=== PATIENT | female | born 1955 | race Caucasian/White ===

== ENCOUNTER 2017-07-29 09:30 | Outpatient (CLI) | payer MEDICARE ==
--- NOTE | 2017-07-29 11:21 | RAD ---
CHEST 2 VIEWS: Date: 07/29/17 HISTORY: Dyspnea. COMPARISON: Chest 2 view dated 03/10/16. FINDINGS: Lungs are clear. No pneumothorax or effusion. Cardiac silhouette and mediastinal contour within norm al limits. Mild spondylosis of thoracic spine. Bones are osteopenic. Lungs mildly hyperinflated. IMPRESSION: Mild lung hyperinflation, otherwise no acute intrathoracic abnormality. No significant change. POS: [facility]
== END 2017-07-29 09:31 | disposition home or self-care (01) ==
LOC: RAD 09:30
PROVIDERS: ATTEND Internal Medicine Critical Care Medicine
DX: R06.00 Dyspnea, unspecified (principal); J98.11 Atelectasis
CPT/HCPCS: 71020

== ENCOUNTER 2018-07-05 15:57 | Outpatient (CLI) | payer MEDICARE ==
--- NOTE | 2018-07-05 16:44 | RAD ---
CHEST TWO VIEWS: HISTORY: COPD. Congestion. COMPARISON: 07/29/2017 FINDINGS: The lungs are hyperinflated. Chronic changes without consolidation or mass. No pneumothorax or osse ous abnormalities. Normal cardiac silhouette. IMPRESSION: 1. Hyperinflation. 2. Chronic obstructive pulmonary disease. 3. No acute cardiopulmonary process. POS: [facility]
== END 2018-07-05 15:58 | disposition home or self-care (01) ==
LOC: SCSRAD 15:57
PROVIDERS: ATTEND Family Medicine
DX: J44.1 Chronic obstructive pulmonary disease with (acute) exacerbation (principal); R91.8 Other nonspecific abnormal finding of lung field
CPT/HCPCS: 71046

== ENCOUNTER 2018-08-06 08:43 | Inpatient (IN) | payer MEDICARE ==
[2018-08-06] MEDS ORDERED: Fentanyl 20 mcg/ml (100 ml CADD) IV PRN (09:15)
[2018-08-06 09:23] LABS: Actual Bicarbonate (HCO3a) 31.6 mEq/L (22-28); Analyzer IN Cardio ER; Base Excess (BEa) 4.1 mEq/L (-2.0 to +3.0); Calcium, Ionized 1.11 mmol/L (1.12-1.30); Carboxyhemoglobin (COHb) 0.3 gm% (0.0-3.0); Hemoglobin (Hb) 12.2 g/dL (12.0-16.0); O2 Tension (PaO2) 90.6 mmHg (> 80.0); pH, Arterial 7.32 (7.35-7.45)
[2018-08-06] MEDS ORDERED: Dexamethasone 10 MG/ML VIAL ONE (09:24)
[2018-08-06 09:35] LABS: CO2 Tension 62.2 mmHg (35.0-45.0); Puncture Site RRA
--- NOTE | 2018-08-06 09:38 | RAD ---
SEMIUPRIGHT PORTABLE CHEST 1 VIEW: Date: 08/06/18 HISTORY: 62-year-old female with history of respiratory distress and dyspnea. FINDINGS: NG tube and endotracheal tubes have been placed in satisfactory location. Increased linear and inters titial markings are noted bilaterally, evidence for some chronic change. Minimal increased markings a re noted in the right upper lobe, but raise the concern for minimal pneumonia. Probable small left pl eural effusion. No significant cardiomegaly. Old granulomatous disease. IMPRESSION: NG tube and endotracheal tube in satisfactory location. Minimal parenchymal changes right upper lobe, evidence for pneumonia. Blunting of the left costophrenic angle, evidence for some left pleural effu olamide. Increased interstitial and linear parenchymal changes bilaterally, evidence for bilateral vascu lar congestion. No significant cardiomegaly. Atherosclerosis of the aorta. POS: [facility]
[2018-08-06] MEDS ORDERED: Magnesium 2 GM/50 ML 2 GM in Premix Bag 1 BAG IVPB SCH (10:00)
[2018-08-06 10:05] LABS: ALT (SGPT) 10 U/L (8-55); AST (SGOT) 19 U/L (5-34); Albumin 3.8 g/dL (3.4-4.8); Alkaline Phosphatase 114 U/L (40-150); Anion Gap 12 mmol/L (10-20); BUN (Urea Nitrogen) 10 mg/dL (9.8-20.1); Bilirubin, Total 0.4 mg/dL (0.2-1.2); CK (CPK) 155 U/L (29-168); Calc. Creatinine Clearance 0 mL/min (70-130); Calcium 8.8 mg/dL (7.8-10.44); Carbon Dioxide 29 mmol/L (23-31); Chloride 97 mmol/L (98-107); Estimated GFR-MDRD 61; Globulin 2.7 g/dL (2.4-3.5); Glucose 64 mg/dL (80-115); Lipase 4 U/L (8-78); Potassium 3.7 mmol/L (3.5-5.1); Protein, Total 6.5 g/dL (6.0-8.3); Sodium 134 mmol/L (136-145)
[2018-08-06 10:10] LABS: CKMB 5.1 ng/mL (0-6.6); Troponin I Less than 0.010 ng/mL (< 0.028)
[2018-08-06] MEDS ORDERED: CCU Electrolyte Replacement 1 EACH IVPB ONE (10:31)
[2018-08-06] MEDS ORDERED: Insulin Regular 300 UNITS/3 ML VIAL SC PRN (10:31)
--- NOTE | 2018-08-06 10:43 | RAD ---
FRONTAL VIEW CHEST: Date: 08/06/18 COMPARISON: Earlier same date. INDICATION: Line placement. FINDINGS: There has been placed of a left subclavian venous catheter. No significant postprocedural pneumothora x is present. Redemonstration of endotracheal tube and enteric catheter. Right medial apical opacity is similar. There is interstitial prominence and enlargement of the pulmonary vasculature. IMPRESSION: 1. Interval placement of left subclavian venous catheter, without evidence of postprocedural pneumot horax. 2. Persistent medial right apical opacity, which is superimposed upon findings of edema. Follow-up t o resolution is recommended. CODE T. POS: [facility]
[2018-08-06 10:45] LABS: Band 11 % (5-11); Lymphocytes 22 % (21-51); MDiff Complete? YES; Mean Corpuscular HGB CONC 32.2 g/dL (32.0-36.0); Mean Corpuscular Hemoglobin 28.4 pg (27.0-31.0); Mean Corpuscular Volume 88.2 fL (78.0-98.0); Mean Platelet Volume 7.9 fL (7.4-10.4); Monocytes 15 % (0-10); Neutrophil 52 % (42-75); Platelet Count 280 thou/uL (130-400); RBC Distribution Width 13.5 % (11.5-14.5); Red Blood Cell (RBC) Count 4.24 mill/uL (4.20-5.40); White Blood Cell (WBC) Count 8.7 thou/uL (4.8-10.8)
[2018-08-06] MEDS ORDERED: Potassium Chloride 40 MEQ in Premix Bag 1 BAG IVPB PRN (10:53)
[2018-08-06] MEDS ORDERED: Potassium Chloride 40 MEQ in Sodium Chloride 0.9% 250 ML 250 ML IVPB PRN (10:53)
[2018-08-06] MEDS ORDERED: Potassium Phosphate 15 MMOL in Sodium Chloride 0.9% 250 ML 250 ML IV PRN (10:53)
[2018-08-06] MEDS ORDERED: Magnesium 2 GM/NS 0.9% 100 ML 2 GM in Premix Bag 1 BAG IVPB PRN (10:53)
[2018-08-06] MEDS ORDERED: Potassium Phosphate 12 MMOL in Sodium Chloride 0.9% 250 ML 250 ML IV PRN (10:53)
[2018-08-06] MEDS ORDERED: Potassium Phosphate 9 MMOL in Sodium Chloride 0.9% 100 ML IVPB PRN (10:53)
[2018-08-06] MEDS ORDERED: CCU ELECTROLYTE REPLACEMENT PROTOCOL FS PRN (10:53)
[2018-08-06] MEDS ORDERED: Magnesium Oxide 400 MG TAB PO PRN ×2 (10:53)
[2018-08-06] MEDS ORDERED: Potassium Chloride 20 MEQ TAB PO PRN (10:53)
[2018-08-06 11:24] LABS: Bilirubin Negative (Negative); Blood, Urine Negative (Negative); Clarity CLEAR (Clear); Glucose, Urine (Dipstick) Negative (Negative); Leukocyte Negative (Negative); Nitrite Negative (Negative); Protein, Urine (Dipstick) Negative (Neg-Trace); Specific Gravity, Urine 1.009 (1.002-1.036); Urobilinogen 0.2 mg/dL (0.2-1.0); pH, Urine 5.5 (5.0-9.0)
[2018-08-06] MEDS ORDERED: Furosemide 40 MG TAB PO SCH (13:00)
[2018-08-06] MEDS ORDERED: Potassium Chloride 20 MEQ TAB PO SCH (15:15)
--- NOTE | 2018-08-06 15:23 | HP ---
CHIEF COMPLAINT: Respiratory distress. HISTORY OF PRESENT ILLNESS: The patient is a very pleasant 62-year-old female who has a history of c hronic pain, hypothyroidism, chronic obstructive pulmonary disease, and also anxiety, depression, hyp ertension, who was brought into the hospital by EMS. The patient's who is at the bedside sta parth that yesterday she was doing well, did not have any upper respiratory symptoms. 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 She als o walked bryon the dog around and went to bed around 10:00 p.m. the patient's did say, milly forrester, that she normally does not use a nebulizer. However, last night around 03-30, she did use her nebu lizer treatment. The patient has been furthermore stated that this morning around 4:30 he was awoken with her grunting, breathing really heavily and was sweating profusely. At this time, the patient's tried to wake her up; however, she was not responsive. So at this time, he summoned the EMS and was brought in by the EMS, was intubated at the outside hospital and was transferred here for fu rther evaluation. According to the patient's , he denies her having any sick contacts. She r ecently on Tuesday saw her radiotelegrapher and was prescribed some steroids. According to him, she d enied any chest pain or worsening shortness of breath yesterday. Also, she normally uses oxygen at n ight and during the day as needed. Last night she did have oxygen. He does not know how many liters . PAST MEDICAL HISTORY: As I mentioned hypertension, chronic obstructive pulmonary disease, hypothyroi dism, anxiety, depression, tobacco user, reflux, chronic back pain. She has a history of thyroid can cer. PAST SURGICAL HISTORY: She has had a history of cholecystectomy, hysterectomy, appendectomy, thyroid ectomy. SOCIAL HISTORY: She normally used to smoke a pack a day. She 3-4 days ago quit smoking and prior to that, she was smoking half a pack a day, approximately 40 years according to . Denies any al cohol or drug use. She is a FULL CODE per . ALLERGIES: She has got no known allergies. MEDICATIONS: As of the following: She is on Synthroid 137 mcg daily, lisinopril 10 mg daily, Dilant in 240 mg daily, citalopram 20 mg daily, amitriptyline 50 mg daily, quetiapine 75 mg daily, atorvasta tin 20 mg daily, bupropion XL 300 mg in the morning and 150 at night, metoprolol 25 mg twice a day, o meprazole 20 mg twice a day, she has a fentanyl patch at 25 mcg every 72 hours, neb treatments DuoNeb s as needed, she is on hydroxyzine 50 mg as needed, lorazepam 0.5 as needed, and gabapentin 300 mg t. i.d. REVIEW OF SYSTEMS: Unable to do the patient is intubated. FAMILY HISTORY: No history of heart disease or chronic obstructive pulmonary disease. PHYSICAL EXAMINATION: VITAL SIGNS: She is afebrile at 98.8, respirations are 16, she is 130/60 and she is 98% and she is i ntubated. GENERAL: She is intubated, actually is on propofol, but is responding, is able to move all extremiti es and follow commands. CARDIOVASCULAR: S1, S2 present. No murmurs, rubs or gallops. LUNGS: Mild rhonchi to bilateral lower bases, otherwise pretty significantly clear. ABDOMEN: Soft, nontender. Bowel sounds are present x2. EXTREMITIES: No edema. Pedal pulses are present x2. SKIN: Intact. No bruises or adhesions noted. NEUROVASCULAR: She is able to move all extremities and pupils are equal and reactive to light. LABORATORY DATA: As of the following: She has a white count of 8.7, hemoglobin of 37.4, hematocrit of 88.2. She has no bands. Chemistry: Sodium 134, potassium of 3.7, BUN of 10, creatinine 0.93, gl ucose of 64. Troponin initial set was negative and TSH is low at 0.0549. Urine appeared to be linda l. She also had a chest x-ray that her lungs appeared to be hyperinflated, did have some significant right apical opacity. She had a CT head at outside hospital, which was negative. She also had a bl ood gas which initially her pCO2 was 80 per ER doctor. At the other hospital; however, our records s hows pCO2 of 62.2 with a pH of 7.32 and a pCO2 of 90.6. ASSESSMENT AND PLAN: The patient is a very pleasant 62-year-old female who came into the hospital fo r respiratory distress. 1. Acute hypercapnic respiratory failure: This could be most likely due to her chronic obstructive pulmonary disease exacerbation versus possible pneumonia since she did have some infiltrate on her ri ght apical area. We will start the patient on some Levaquin or may also cover for possible aspiratio n pneumonia. We will check sputum. We will start the patient on some DuoNebs. We will give some ge ntle steroids. Also admit her to the ICU and consult Pulmonary. We will trend her troponins and con tinue to monitor. 2. History of hypertension: We will hold her blood pressure medications. Her blood pressures are v jeffrey normal and she is on propofol. 3. Diabetes: Her sugar on the BMP appeared to be low. I did call the nurse to recheck a spot check and also we will hold her insulin unless restart tube feedings. 4. History of hypothyroidism: We will continue her medications and also we will check a free T4 sin ce her TSH was really low. Might need to decrease her dose of her Synthroid. 5. Deep venous thrombosis prophylaxis. We will put patient on subcu heparin.
[2018-08-06 15:29] LABS: Troponin I Less than 0.010 ng/mL (< 0.028)
--- NOTE | 2018-08-06 15:56 | CON ---
DATE OF CONSULTATION: 08/06/2018 SERVICE: Pulmonary Medicine. REASON FOR CONSULTATION: Respiratory failure. HISTORY OF PRESENT ILLNESS: The patient is a 62-year-old white female with past medical history significant for chronic pain. She takes fentanyl patches and other anxiolytic medications at home. Apparently, she was in her usual state of health yesterday. This morning, she was found unresponsive by family members. EMS services were called. She was brought to the Emergency Department. Her blood pressures were marginal and she was subsequently intubated. Her pH was low and her pCO2 was 90. Otherwise, I cannot get any additional elements of the history, but the family tells me that yesterday, she was normal. She has not had any complaints of increasing shortness of breath, wheezing, cough or sputum production. PAST MEDICAL HISTORY: 1. COPD. 2. Type 2 diabetes mellitus. 3. Hypertension. 4. Dyslipidemia. 5. Gastroesophageal reflux disease. 6. Hypothyroidism. 7. Major depressive disorder. 8. Chronic back pain. 9. Tobacco abuse, ongoing. PAST SURGICAL HISTORY: 1. Tonsillectomy. 2. Hysterectomy. 3. Appendectomy. 4. Thyroidectomy for thyroid cancer. ALLERGIES: No known drug allergies. MEDICATIONS: List of her inpatient medications were reviewed and heavily modified. FAMILY HISTORY: Noncontributory. SOCIAL HISTORY: She has a [id number] history of smoking and continues to smoke. She denies any alcohol or illicit drug use. She has no exposure to chemicals, dust, asbestos or tuberculosis. REVIEW OF SYSTEMS: General, head, ears, eyes, nose, throat, cardiovascular, respiratory, GI, , musculoskeletal, neurologic and skin is negative except as mentioned in the HPI. PHYSICAL EXAMINATION: VITAL SIGNS: Afebrile, pulse 81, blood pressure 134/68, respirations 18, saturation 97% on 27% FiO2 and a PEEP of 5. GENERAL: The patient is intubated. Despite the fact that she is on 40 mcg of propofol and 115 mcg of fentanyl with the fentanyl patch on, the patient is wide awake and telling us what floor. I immediately put her on a spontaneous breathing trial and she did not miss a beat. HEENT: Normocephalic, atraumatic. Sclerae are white. Conjunctivae are pink. Oral mucosa is moist and without lesions. LUNGS: There is really decent air entry. There is a little bit of a prolonged expiratory phase, but there is only mild wheezing. Rhonchi are present, but clear with cough. No crackles. HEART: Normal rate, regular. ABDOMEN: Soft, nontender, nondistended. Bowel sounds are positive. MUSCULOSKELETAL: No cyanosis or clubbing. There is no pitting in the bilateral lower extremities. NEUROLOGIC: Grossly nonfocal. LABORATORY DATA: WBC 8.7, hemoglobin 12.0, platelets 280,000. PH 7.32, pCO2 62 , pO2 90. Basic metabolic profile and liver function studies are essentially unremarkable. Lipase is negative. BNP is normal. TSH is appropriately suppressed, lactate 1.0. Urinalysis is unremarkable. Influenza A and B is unremarkable. IMAGING: Chest x-ray demonstrates endotracheal tube is in decent position. Left subclavian central venous catheter is present without post-procedural pneumothorax. Minimal right apical opacity is present, possibly reflecting some degree of aspiration changes. Endotracheal tube is in excellent position. ASSESSMENT: 1. Acute hypoxic and hypercapnic respiratory failure. 2. Chronic obstructive pulmonary disease with minimal exacerbation. 3. Overdose of pain medication and/or anxiolytics, likely accidental. 4. Type 2 diabetes mellitus. DISCUSSION AND PLAN: If the patient tolerates her spontaneous breathing trial, we will extubate her. I will change her steroids over to 20 mg of prednisone on a daily basis and decrease her nebulized medications to q.6 hours. A low dose of an antibiotic will be provided for the next 5 days. We will start to mobilize the patient. If she is good by tomorrow, she can be discharged from the hospital. My suspicion is that we have acute hypercapnic respiratory failure, primarily secondary to overdose or minimal volume overload. Either way , the episode has seemingly resolved in its entirety. CRITICAL CARE TIME: 30 minutes. MTDD
[2018-08-06] MEDS: Famotidine/PF 20 mg/2ml Vial SLOW IVP SCH (20:53)
[2018-08-07] MEDS ORDERED: Levothyroxine 150 MCG TAB PO SCH (06:00)
[2018-08-07] MEDS ORDERED: Furosemide 40 MG TAB PO SCH (07:30)
[2018-08-07] MEDS ORDERED: predniSONE 20 MG TAB PO SCH (08:00)
[2018-08-07] MEDS ORDERED: Bupropion 150 MG XL TAB PO SCH (09:00)
[2018-08-07] MEDS ORDERED: Nicotine 14 MG PATCH TD SCH (09:00)
[2018-08-07] MEDS ORDERED: PARoxetine 20 MG TAB PO SCH (09:00)
[2018-08-07] MEDS: Famotidine/PF 20 mg/2ml Vial SLOW IVP SCH (09:13)
[2018-08-07] MEDS ORDERED: hydrOXYzine 25 MG TAB PO PRN (11:08)
[2018-08-07 11:15] VITALS: BP 135/71; TEMP 98.5
[2018-08-07 12:13] VITALS: BMI 24.9
--- NOTE | 2018-08-07 21:52 | PRG ---
DATE OF SERVICE: 08/07/2018 SERVICE: Pulmonary Medicine. INTERVAL HISTORY: Patient is doing absolutely fantastic. She is breathing comfortably. There has b een no interval change to her condition if she suggests that she is back to her usual state of health . She did not have any fevers or chills. She is not wheezing. She is essentially back to her basel ine from a breathing standpoint. Overall, she is very happy with the [facility]. PHYSICAL EXAMINATION: VITAL SIGNS: Afebrile currently with a T-max of 99.1, pulse 108, blood pressure 156/71, respirations 18, saturation 93% on room air. GENERAL: Patient is awake and alert in no apparent distress. LUNGS: Excellent air entry. There is a minimally prolonged expiratory phase, but I do not hear any wheezing or crackles. Rhonchi are present, but clear with cough. HEART: Normal rate, regular. ABDOMEN: Soft, nontender, nondistended. Bowel sounds are positive. MUSCULOSKELETAL: No cyanosis or clubbing. There is trace pitting today in the bilateral lower extre mities. NEUROLOGIC: Grossly nonfocal. LABORATORY DATA: TSH is normal. BNP 135, cardiac enzyme negative x2. Lactate was previously unrema rkable. Influenza A and B as well as respiratory culture are unremarkable. ASSESSMENT: 1. Acute hypoxic and hypercapnic respiratory failure, resolved. 2. Chronic obstructive pulmonary disease with minimal exacerbation, resolved. 3. Type 2 diabetes mellitus. 4. History of thyroid cancer with appropriately suppressed thyroid function. DISCUSSION AND PLAN: The patient will continue a very brief course of prednisone. She can go out on antibiotics or not. I suspect this is only a very mild chronic obstructive pulmonary disease exacer bation, possibly exacerbated by overuse of pain medications and/or fluid. At this point, however, edwige miles is completely back to baseline and requesting discharge from the hospital, which I think is reasona ble. If she remains in house, Pulmonary will continue to follow but my suspicion, she will be discha rged from the hospital today.
--- NOTE | 2018-08-08 01:56 | DIS ---
DATE OF ADMISSION: 08/06/2018 DATE OF DISCHARGE: 08/07/2018 DISCHARGE DIAGNOSES: 1. Acute hypercapnic respiratory failure. 2. Possible chronic obstructive pulmonary disease exacerbation versus medication overdose. 3. History of hypertension. HOSPITAL COURSE: The patient is a very pleasant 62-year-old female who initially presented to the [facility] with altered mental status and acute encephalopathy. The patient was noted to be very hyperca pnic, was intubated in an outside hospital and was transferred here for further evaluation. The hipolito ent was extubated by Pulmonology on the same day as she was admitted, she did very well. She was tra nsferred out on the floor. The patient's hypercapnia was thought most likely secondary to possible m edication overdose. However, upon questioning the patient, she stated that she had been on a fentany l patch, which has been 100 mcg, which had cut down to 25 mcg and patient denies over taking any of h er antianxiety medications. She denies any fever, cough, or any shortness of breath prior to t his incident. However, the patient will be sent home with a 4-day of steroids and also on some antib iotics just a preventative. MEDICATIONS: Her home medications will be as of the following: She is on escitalopram 20 mg daily, atorvastatin 20 mg daily, hydroxyzine 50 mg p.r.n., gabapentin 600 mg b.i.d., quetiapine 75 at bedtim e, amitriptyline 50 mg at bedtime, metoprolol 25 mg b.i.d., diltiazem 240 mg b.i.d., omeprazole 20 mg b.i.d., fentanyl patch 25 mcg every 3 days, bupropion daily, prednisone 20 mg for 3 days, vu geovany 14 mg daily. She was asked not to smoke while on the patch. Levothyroxine, her dose was decrea sed to 100 mcg from 137 due to her low TSH. Levofloxacin 750 for 3 doses, ipratropium q.6 hours and Pepcid 20 mg b.i.d. while she is on steroids. PHYSICAL EXAMINATION: VITAL SIGNS: Temperature of 98.5, pulse 98, respirations 18, O2 sats 93% room air, blood pressure 13 5/71. GENERAL: She is awake, alert, oriented x3, does not appear in distress. CARDIOVASCULAR: S1, S2 present. No murmurs, rubs or gallops. ABDOMEN: Soft, nontender. Bowel sounds are present. EXTREMITIES: No edema. DISCHARGE INSTRUCTIONS: The patient will be discharged home. She will follow up with her primary. She does not recall any titrating up of her medications recently. I did tell the to follow u p and keep a close eye on the patient and also she needs an oxygen concentrator, which she will follo w up with her primary care doctor for that.
--- NOTE | 2018-08-09 13:49 | EKG ---
Test Reason : Blood Pressure : / mmHG Vent. Rate : 088 BPM Atrial Rate : 088 BPM P-R Int : 140 ms QRS Dur : 096 ms QT Int : 382 ms P-R-T Axes : 053 087 073 degrees QTc Int : 462 ms Normal sinus rhythm Normal ECG Confirmed by DILIP CABRALES, SKYLAR ([id number]), videotape editor JOVANI ZHU ([id number]) on 08/09/2018 1:48:29 PM Referred By: Confirmed By:SKYLAR CHERRY MD
== END 2018-08-07 15:19 | disposition home or self-care (01) | DRG 189 ==
LOC: ERS 08:43 → CCU 12:05 → 2SE 21:56
PROVIDERS: ADMIT Internal Medicine; ATTEND Internal Medicine
DX: J96.02 Acute respiratory failure with hypercapnia (principal); J44.1 Chronic obstructive pulmonary disease with (acute) exacerbation; F17.210 Nicotine dependence, cigarettes, uncomplicated; I10 Essential (primary) hypertension; E11.9 Type 2 diabetes mellitus without complications; Z85.850 Personal history of malignant neoplasm of thyroid
CPT/HCPCS: 36415; 36416; 36556; 71045; 80053; 81003; 82553; 82805; 83605; 83690; 83880; 84439; 84443; 84484; 85025; 87040; 87070; 87205; 87804; 90471; 90732; 93005; 94002; 94640; 94760; 96365; 96366; 96368; 96375; G0009; J1100; J1956; J2920; J3010; J7050; J7506; J7620; S0028

== ENCOUNTER 2018-09-25 09:18 | Outpatient (CLI) | payer MEDICARE ==
--- NOTE | 2018-09-25 11:09 | RAD ---
PA AND LATERAL CHEST RADIOGRAPH: Date: 09-25-18 History: Dyspnea. Comparison: 07-29-17 FINDINGS: Cardiac silhouette and pulmonary vasculature are within normal limits. Mild chronic lung changes are again seen. Lungs are otherwise clear. No focal consolidation or pleural fluid is seen. There has bee n no interval change from the prior exam. IMPRESSION: Stable chest without evidence of an acute cardiopulmonary process. POS: [facility]
== END 2018-09-25 09:19 | disposition home or self-care (01) ==
LOC: RAD 09:18
PROVIDERS: ATTEND Internal Medicine Critical Care Medicine
DX: R06.00 Dyspnea, unspecified (principal)
CPT/HCPCS: 71046

== ENCOUNTER 2019-05-16 12:35 | Outpatient (CLI) | payer MEDICARE ==
--- NOTE | 2019-05-16 14:54 | MRI ---
LEFT WRIST MRI WITHOUT IV CONTRAST: 05/16/19 HISTORY: Closed intra-articular fracture distal end of left radius with malunion, injury to triangular fibroca rtilage complex. Left wrist MRI without IV contrast is performed. There is very severe motion artifact which considerably degrades image quality and lowers the sensiti vity of this study. There is evidence for a nonunion distal radial fracture with some fairly extensiv e callus formation and some foreshortening with intra-articular extension. Extensive fluid in the di stal radioulnar joint with very severe positive ulnar variance and overall malalignment of the distal ulna and distal radius, evidence for disruption of the triangular fibrocartilage complex. Degenerati ve interosseous cystic changes noted of the carpal bones with severe arthrosis of the trapezium first metacarpal joint. IMPRESSION: Markedly comminuted, markedly foreshortened distal radial fracture with intra-articular extension and prominent callus formation with incomplete union. Abnormally widened distal radioulnar joint with se diane positive ulnar variance with the ulna abutting the lunate and triquetrum, evidence for triangula r fibrocartilage complex disruption. Prominent fluid within the radiocarpal joint and the inner carpal joint. Exam significantly limited b ecause of severe motion artifact. Associated abnormal marrow signal of the distal ulna. No evidence f or navicular or lunate avascular necrosis. Scapholunate ligament region appears intact. POS: [facility]
== END 2019-05-16 12:36 | disposition home or self-care (01) ==
LOC: SCSMRI 12:35
PROVIDERS: ATTEND Orthopaedic Surgery Hand Surgery
DX: S52.572P Other intraarticular fracture of lower end of left radius, subsequent encounter for closed fracture with malunion (principal); S69.82XA Other specified injuries of left wrist, hand and finger(s), initial encounter

== ENCOUNTER 2019-07-31 12:09 | Outpatient (CLI) | payer MEDICARE ==
[2019-07-31 13:24] LABS: Hemoglobin 11.6 g/dL (12.0-16.0); Mean Corpuscular HGB CONC 32.9 g/dL (32.0-36.0); Mean Corpuscular Hemoglobin 28.4 pg (27.0-31.0); Mean Corpuscular Volume 86.1 fL (78.0-98.0); Mean Platelet Volume 7.8 fL (7.4-10.4); Platelet Count 361 thou/uL (130-400); RBC Distribution Width 12.1 % (11.5-14.5); Red Blood Cell (RBC) Count 4.09 mill/uL (4.20-5.40); White Blood Cell (WBC) Count 8.2 thou/uL (4.8-10.8)
[2019-07-31 13:32] LABS: Bacteria/HPF None Seen HPF (None Seen); Bilirubin Negative (Negative); Blood, Urine Negative (Negative); Clarity Clear (Clear); Glucose, Urine (Dipstick) Normal (Negative); Leukocyte Negative Leu/uL (Negative); Nitrite Negative (Negative); Protein, Urine (Dipstick) Negative (Neg-Trace); RBC/HPF 0-3 HPF (0-3); Squamous Epithelial None Seen HPF (0-3); Urobilinogen Normal mg/dL (Less than 2); WBC/HPF 0-3 HPF (0-3)
[2019-07-31 13:51] LABS: Anion Gap 14 mmol/L (10-20); BUN (Urea Nitrogen) 9 mg/dL (9.8-20.1); Calc. Creatinine Clearance 0 mL/min (70-130); Carbon Dioxide 28 mmol/L (23-31); Chloride 99 mmol/L (98-107); Estimated GFR-MDRD 61; Glucose 86 mg/dL (80-115); Potassium 4.6 mmol/L (3.5-5.1); Sodium 136 mmol/L (136-145)
[2019-07-31 14:11] LABS: Band 4 % (5-11); Eosinophils 4 % (0-10); Lymphocytes 34 % (21-51); MDiff Complete? YES; Monocytes 7 % (0-10); Neutrophil 48 % (42-75); Platelet Morphology Comment Appears Adequate; Polychromasia SLIGHT = 2-3 cells (100X) (0-2/hpf)
--- NOTE | 2019-08-02 23:12 | EKG ---
Test Reason : Blood Pressure : / mmHG Vent. Rate : 077 BPM Atrial Rate : 077 BPM P-R Int : 148 ms QRS Dur : 094 ms QT Int : 398 ms P-R-T Axes : 066 070 069 degrees QTc Int : 450 ms Normal sinus rhythm Normal ECG When compared with ECG of 06-AUG-2018 09:11, (Unconfirmed) No significant change was found Confirmed by Abram JUAREZ ([id number]) on 08/02/2019 11:12:00 PM Referred By: FALLON Confirmed By:Abram JUAREZ
== END 2019-07-31 12:10 | disposition home or self-care (01) ==
LOC: LABBT 12:09
PROVIDERS: ATTEND Orthopaedic Surgery Hand Surgery
DX: Z01.818 Encounter for other preprocedural examination (principal); S52.502P Unspecified fracture of the lower end of left radius, subsequent encounter for closed fracture with malunion; S69.82XA Other specified injuries of left wrist, hand and finger(s), initial encounter
CPT/HCPCS: 80048; 81001; 85025; 93005; 93010

== ENCOUNTER 2019-08-06 11:55 | Inpatient (IN) | payer MEDICARE ==
[2019-08-06] MEDS ORDERED: Ondansetron HCl/PF 4 MG/2 ML Vial IVP PRN ×2 (12:32→19:41)
[2019-08-06] MEDS ORDERED: Fentanyl 100 MCG/2 ML VIAL ONE ×3 (12:56→20:02)
[2019-08-06] MEDS ORDERED: Midazolam HCl 2 mg/2 ml Vial ONE (12:56)
[2019-08-06] MEDS ORDERED: Bacitracin Zinc Ointment 30 gm TUBE ONE (13:11)
[2019-08-06] MEDS ORDERED: Thrombin 5000 UNITS/5 ML VIAL ONE (13:11)
[2019-08-06] MEDS ORDERED: Sodium Chloride 0.9% 0 ML ONE (13:12)
[2019-08-06] MEDS ORDERED: Ropivacaine 0.2% HCl/PF (40 MG/20 ML VIAL) ONE (13:16)
[2019-08-06] MEDS ORDERED: Ropivacaine 0.5% HCl/PF (150 MG/30 ML VIAL) ONE (13:16)
[2019-08-06] MEDS ORDERED: PROPOFOL 200 MG/20 ML VIAL ONE (13:17)
[2019-08-06] MEDS ORDERED: PHENYLEPHRINE-NS 100 MCG/ML 10 ML SYRINGE ONE (13:17)
[2019-08-06] MEDS ORDERED: Ondansetron PF 4 MG/2 ML Vial ONE (13:17)
[2019-08-06] MEDS ORDERED: ePHEDrine 50 MG/ML VIAL ONE (13:17)
[2019-08-06] MEDS ORDERED: Lidocaine 1% PF 5 ML VIAL ONE (13:17)
[2019-08-06] MEDS ORDERED: Glycopyrrolate 0.2 MG/ML 5 ML SYRINGE ONE (13:17)
[2019-08-06] MEDS ORDERED: Zolpidem Tartrate 5 MG TAB PO PRN (13:21)
[2019-08-06] MEDS ORDERED: HYDROcodone/Acetaminophen 5/325 mg Tablet PO PRN ×2 (13:21)
[2019-08-06] MEDS ORDERED: traMADol HCl 50 MG TAB PO PRN ×3 (13:21→20:31)
[2019-08-06] MEDS ORDERED: Promethazine HCl 25 MG/ML VIAL IM PRN ×3 (13:21→20:31)
[2019-08-06] MEDS ORDERED: Ondansetron PF 4 MG/2 ML Vial IVP PRN (13:21)
[2019-08-06] MEDS ORDERED: Ropivacaine 0.2% 550 ML 550 ML NERVE BLCK SCH (13:21)
[2019-08-06] MEDS ORDERED: Fentanyl 100 MCG/2 ML VIAL IV PRN (13:22)
[2019-08-06] MEDS ORDERED: Bupivacaine PF 0.5% 30 ML VIAL ONE (14:17)
[2019-08-06] MEDS ORDERED: Promethazine HCl 25 MG/ML VIAL SLOW IVP PRN (19:41)
--- NOTE | 2019-08-06 20:29 | RAD ---
LEFT WRIST INTRAOPERATIVE FLUOROSCOPIC IMAGING: CLINICAL HISTORY: Arthrodesis. FINDINGS: Plate and screw fixation of comminuted distal radial fracture, utilizing intraoperative fluoroscopic imaging. There is osseous irregularity at the ulnar styloid. Detail limited on the basis of the provided intraoperative views. IMPRESSION: Plate and screw fixation of comminuted distal radial fracture. Osseous irregularity at the ulnar styloid. Transcribed Date/Time: 08/06/2019 9:04 PM
[2019-08-06] MEDS ORDERED: Acetaminophen 325 MG TAB PO PRN (20:31)
[2019-08-06] MEDS ORDERED: Ondansetron PF 4 MG/2 ML Vial IV PRN (20:31)
[2019-08-06] MEDS ORDERED: Meperidine HCl/PF 25 MG/ML VIAL IM PRN (20:38)
[2019-08-06] MEDS ORDERED: TETANUS AND DIPHTHERIA TOX/PF 0.5 ML DISP.SYRIN IM SCH (20:45)
[2019-08-06] MEDS ORDERED: Communication Order-Pharmacy FS SCH (20:45)
[2019-08-06] MEDS ORDERED: Promethazine HCl 25 MG/ML VIAL ONE (20:46)
[2019-08-06 22:40] VITALS: BMI 26.6
[2019-08-06] MEDS ORDERED: Vancomycin HCl 1 GM in Premix Bag 1 BAG IVPB SCH (23:00)
[2019-08-06] MEDS: Aspirin 81 mg Enteric Coated Tablet PO SCH (23:08)
[2019-08-06] MEDS: Ketorolac Tromethamine 30 MG/ML VIAL IVP SCH ×2 (23:08→23:22)
[2019-08-07] MEDS ORDERED: Gabapentin 400 MG CAP PO PRN (00:32)
[2019-08-07] MEDS ORDERED: Melatonin 3 MG TAB PO PRN ×2 (00:35→17:25)
[2019-08-07] MEDS: HYDROcodone/Acetaminophen 10/325 mg Tablet PO PRN ×2 (03:57→08:42)
[2019-08-07] MEDS: Ketorolac Tromethamine 30 MG/ML VIAL IVP SCH ×3 (05:49→18:11)
[2019-08-07] MEDS ORDERED: Levothyroxine Sodium 125 MCG TAB PO SCH (06:00)
[2019-08-07 06:11] LABS: Band 5 % (5-11); Lymphocytes 21 % (21-51); MDiff Complete? YES; Mean Corpuscular HGB CONC 33.3 g/dL (32.0-36.0); Mean Corpuscular Hemoglobin 28.9 pg (27.0-31.0); Mean Corpuscular Volume 86.8 fL (78.0-98.0); Mean Platelet Volume 7.9 fL (7.4-10.4); Monocytes 12 % (0-10); Neutrophil 62 % (42-75); Platelet Count 289 thou/uL (130-400); RBC Distribution Width 12.3 % (11.5-14.5); Red Blood Cell (RBC) Count 3.78 mill/uL (4.20-5.40); White Blood Cell (WBC) Count 10.4 thou/uL (4.8-10.8)
[2019-08-07] MEDS: Aspirin 81 mg Enteric Coated Tablet PO SCH (08:40)
[2019-08-07] MEDS ORDERED: Escitalopram Oxalate 20 mg Tablet PO SCH (09:00)
[2019-08-07] MEDS ORDERED: Bupropion 150 MG XL TAB PO SCH (09:00)
[2019-08-07] MEDS ORDERED: Metoprolol Tartrate 25 MG TAB PO SCH (09:00)
[2019-08-07] MEDS ORDERED: Lisinopril 10 MG TAB PO SCH (09:00)
--- NOTE | 2019-08-07 11:14 | RAD ---
EXAM: Single view of the chest HISTORY: Chest pain COMPARISON: 08/06/2018 FINDINGS: Single view of the chest shows a normal sized cardiomediastinal silhouette. There is no renae dence of consolidation, mass, or pleural effusion. The bones are unremarkable. IMPRESSION: No evidence of acute cardiopulmonary disease
--- NOTE | 2019-08-07 11:16 | RAD ---
EXAM: 2 views of the left hip HISTORY: Left hip pain COMPARISON: None FINDINGS: 2 views of the left hip shows no evidence of acute fracture or dislocation of the femur or hip. There are skin christ overlying the left iliac crest and there appears to be a fracture of the iliac crest in this location. Mild to moderate degenerative changes are seen. No soft tissue swel ling is present. IMPRESSION: Left iliac crest abnormality could represent postsurgical change or a fracture. Correlate clinically.
[2019-08-07] MEDS ORDERED: PROVENTIL INHALER 6.7 G (200 INHALATIONS) INH SCH ×2 (11:30→15:00)
[2019-08-07] MEDS ORDERED: Sodium Chloride 0.9% 500 ML IVPB SCH (11:30)
[2019-08-07 12:00] LABS: #Lymphocytes 1.2 thou/uL (1.20-3.40); #Monocytes 2.1 thou/uL (0.11-0.59); #Neutrophils 10.7 thou/uL (1.40-6.50); %Basophils 0.3 % (0.0-1.0); %Eosinophils 0.1 % (0.0-10.0); %Lymphocytes 8.7 % (21.0-51.0); %Monocytes 14.8 % (0.0-10.0); Hemoglobin 10.3 g/dL (12.0-16.0); Mean Corpuscular HGB CONC 32.2 g/dL (32.0-36.0); Mean Corpuscular Hemoglobin 28.4 pg (27.0-31.0); Mean Platelet Volume 7.8 fL (7.4-10.4); Platelet Count 278 thou/uL (130-400); RBC Distribution Width 12.3 % (11.5-14.5); Red Blood Cell (RBC) Count 3.64 mill/uL (4.20-5.40)
[2019-08-07 12:27] LABS: Bacteria/HPF None Seen HPF (None Seen); Bilirubin Negative (Negative); Blood, Urine Negative (Negative); Clarity Clear (Clear); Glucose, Urine (Dipstick) Normal (Negative); Leukocyte Negative Leu/uL (Negative); Nitrite Negative (Negative); Protein, Urine (Dipstick) Negative (Neg-Trace); RBC/HPF 0-3 HPF (0-3); Squamous Epithelial None Seen HPF (0-3); Urobilinogen Normal mg/dL (Less than 2); WBC/HPF None Seen HPF (0-3)
[2019-08-07] MEDS ORDERED: diphenhydrAMINE 50 MG/ML VIAL ONE (15:17)
[2019-08-07] MEDS ORDERED: PHENYLEPHRINE-NS 100 MCG/ML 10 ML SYRINGE ONE (15:17)
[2019-08-07] MEDS ORDERED: Ondansetron PF 4 MG/2 ML Vial ONE (15:17)
[2019-08-07] MEDS ORDERED: Lidocaine 1% PF 5 ML VIAL ONE (15:17)
[2019-08-07] MEDS ORDERED: PROPOFOL 200 MG/20 ML VIAL ONE (15:17)
[2019-08-07] MEDS ORDERED: Zolpidem Tartrate 5 MG TAB PO PRN (17:21)
[2019-08-07] MEDS ORDERED: Ondansetron PF 4 MG/2 ML Vial IVP PRN (17:21)
[2019-08-07] MEDS ORDERED: Fentanyl 100 MCG/2 ML VIAL IV PRN (17:21)
[2019-08-07] MEDS ORDERED: Acetaminophen 325 MG TAB PO PRN (17:22)
[2019-08-07] MEDS ORDERED: HYDROcodone/Acetaminophen 10/325 mg Tablet PO PRN (17:22)
[2019-08-07] MEDS ORDERED: Promethazine HCl 25 MG/ML VIAL IM PRN (17:23)
[2019-08-07] MEDS ORDERED: Ropivacaine 0.2% 550 ML 550 ML NERVE BLCK SCH (17:30)
[2019-08-07] MEDS: PROVENTIL INHALER 6.7 G (200 INHALATIONS) INH SCH (18:42)
[2019-08-07 19:21] LABS: Band 36 % (5-11); Hemoglobin 10.8 g/dL (12.0-16.0); Lymphocytes 7 % (21-51); MDiff Complete? YES; Mean Corpuscular HGB CONC 33.1 g/dL (32.0-36.0); Mean Corpuscular Hemoglobin 28.9 pg (27.0-31.0); Mean Corpuscular Volume 87.3 fL (78.0-98.0); Mean Platelet Volume 7.8 fL (7.4-10.4); Monocytes 5 % (0-10); Neutrophil 52 % (42-75); Platelet Count 270 thou/uL (130-400); RBC Distribution Width 12.2 % (11.5-14.5); Red Blood Cell (RBC) Count 3.75 mill/uL (4.20-5.40); White Blood Cell (WBC) Count 20.3 thou/uL (4.8-10.8)
[2019-08-07] MEDS: Morphine 2 MG/ML SYRINGE IVP PRN (19:38)
[2019-08-07] MEDS: Gabapentin 400 MG CAP PO PRN (19:39)
[2019-08-07] MEDS ORDERED: Gentamicin Sulfate 80 MG in Premix Bag 1 BAG IVPB SCH (20:30)
[2019-08-07] MEDS ORDERED: CEFAZOLIN 2 GM in Premix Bag 1 BAG IVPB SCH (20:30)
[2019-08-07] MEDS ORDERED: Amitriptyline HCl 100 MG TAB PO SCH (21:00)
[2019-08-07] MEDS ORDERED: Sodium Chloride 0.9% 100 ML ONE (22:22)
[2019-08-07] MEDS ORDERED: Bacitracin Zinc Ointment 30 gm TUBE ONE (22:22)
[2019-08-07] MEDS ORDERED: Fentanyl 100 MCG/2 ML VIAL ONE ×2 (22:24→22:37)
[2019-08-07] MEDS ORDERED: Thrombin 5000 UNITS/5 ML VIAL ONE (22:33)
[2019-08-07] MEDS ORDERED: Midazolam HCl 2 mg/2 ml Vial ONE (23:28)
[2019-08-08] MEDS ORDERED: Ondansetron PF 4 MG/2 ML Vial ONE (00:56)
[2019-08-08] MEDS ORDERED: Fentanyl 100 MCG/2 ML VIAL ONE (00:56)
[2019-08-08 01:16] LABS: Hemoglobin 12.4 g/dL (12.0-16.0); Mean Corpuscular HGB CONC 33.8 g/dL (32.0-36.0); Mean Corpuscular Hemoglobin 29.3 pg (27.0-31.0); Mean Corpuscular Volume 86.7 fL (78.0-98.0); Mean Platelet Volume 7.9 fL (7.4-10.4); Platelet Count 227 thou/uL (130-400); RBC Distribution Width 12.1 % (11.5-14.5); Red Blood Cell (RBC) Count 4.22 mill/uL (4.20-5.40); White Blood Cell (WBC) Count 22.8 thou/uL (4.8-10.8)
[2019-08-08] MEDS ORDERED: Promethazine HCl 25 MG/ML VIAL ONE (01:16)
[2019-08-08] MEDS ORDERED: Meperidine HCl/PF 25 MG/ML VIAL SLOW IVP PRN (01:23)
[2019-08-08] MEDS ORDERED: Promethazine HCl 25 MG/ML VIAL IM/IV PRN (01:23)
[2019-08-08] MEDS ORDERED: Non-Formulary Medication 1 EACH PO PRN (01:23)
[2019-08-08] MEDS ORDERED: Ondansetron HCl/PF 4 MG/2 ML Vial IVP PRN (01:23)
[2019-08-08] MEDS ORDERED: Ketorolac Tromethamine 30 MG/ML VIAL IVP PRN (01:23)
[2019-08-08 01:35] LABS: Band 25 % (5-11); Lymphocytes 11 % (21-51); MDiff Complete? YES; Monocytes 12 % (0-10); Neutrophil 52 % (42-75)
[2019-08-08] MEDS ORDERED: Dextrose 5 % And 0.9 % NaCl 1,000 ML IV SCH (02:30)
--- NOTE | 2019-08-08 03:28 | CON ---
DATE OF CONSULTATION: 08/08/2019 REASON FOR CONSULTATION: Medical management. HISTORY OF PRESENT ILLNESS: Ms. Taylor is a 63-year-old female who just underwent left wrist surgery, postoperative lactic acid level is elevated at 8. The patient had a hip surgery day before with bone graft. Postoperatively, lab work showed a WBC count of 22.8. Yesterday, WBC count was 20.3. Currently, the patient is postop, lethargic, unable to give any history. PAST MEDICAL HISTORY: Significant for 1. Hypertension. 2. Hyperlipidemia. 3. Hypothyroidism. 4. Diabetes. 5. COPD. 6. Ischemic colitis. PAST SURGICAL HISTORY: 1. Thyroid surgery. 2. Hysterectomy. 3. Tonsillectomy. 4. Colonoscopy. SOCIAL HISTORY: Former smoker. FAMILY HISTORY: Unknown. ALLERGIES: NO KNOWN ALLERGIES. REVIEW OF SYSTEMS: Unable to obtain. The patient is currently postoperative and lethargic. PHYSICAL EXAMINATION: GENERAL: The patient is postoperative, lethargic. VITAL SIGNS: Temperature 98, yesterday temperature was 102.5, pulse is 119, respiratory rate is 18, oxygen saturation is 98% on room air. HEAD AND NECK: Normocephalic, atraumatic. Neck is supple. No JVD. CHEST: Fair bilateral air entry. HEART: S1 and S2. Regular. ABDOMEN: Soft, nontender. Bowel sounds are present. NEURO: Postoperative, unable to assess. PSYCH: Unable to assess. EXTREMITIES: No clubbing or cyanosis. LABORATORY DATA: Last chemistry panel last few days. WBC count as mentioned above is elevated at 22.8. Lactic acid is elevated at 8. ASSESSMENT: 1. Lactic acidosis. 2. Fever. The patient had a temperature of 102.5. 3. Postoperative bone graft to the left wrist. 4. Hypertension. 5. Hyperlipidemia. 6. Thyroid disease. 7. Chronic obstructive pulmonary disease. 8. Diabetes. PLANS: 1. The patient is being admitted to the CCU. 2. Septic workup including cultures done. 3. IV antibiotics surgeon, we will need to check the patient's kidney function and creatinine, especially if the patient is going to be started on IV antibiotics/gentamicin which was ordered. Continue with IV fluids. 4. Recheck lactic acid level. 5. Reconcile home medications. 6. DVT prophylaxis as appropriate. Thank you for consulting us. We will follow the patient with you. Job ID: [id number]
[2019-08-08 03:31] LABS: ALT (SGPT) 16 U/L (8-55); AST (SGOT) 39 U/L (5-34); Albumin 3.3 g/dL (3.4-4.8); Alkaline Phosphatase 144 U/L (40-110); Anion Gap 13 mmol/L (10-20); BUN (Urea Nitrogen) 7 mg/dL (9.8-20.1); Bilirubin, Total 0.8 mg/dL (0.2-1.2); Calc. Creatinine Clearance 100 mL/min (70-130); Calcium 8.3 mg/dL (7.8-10.44); Carbon Dioxide 28 mmol/L (23-31); Chloride 101 mmol/L (98-107); Estimated GFR-MDRD 86; Globulin 2.5 g/dL (2.4-3.5); Glucose 113 mg/dL (80-115); Potassium 3.6 mmol/L (3.5-5.1); Protein, Total 5.8 g/dL (6.0-8.3); Sodium 138 mmol/L (136-145)
[2019-08-08] MEDS: Amitriptyline HCl 100 MG TAB PO SCH ×2 (03:59→20:06)
[2019-08-08] MEDS: Aspirin 81 mg Enteric Coated Tablet PO SCH ×3 (03:59→20:05)
[2019-08-08] MEDS: Ketorolac Tromethamine 30 MG/ML VIAL IVP SCH ×3 (03:59→11:15)
[2019-08-08] MEDS: Lisinopril 10 MG TAB PO SCH ×3 (03:59→20:06)
[2019-08-08] MEDS ORDERED: Fentanyl 100 MCG/2 ML VIAL SLOW IVP PRN (04:29)
[2019-08-08] MEDS: Penicillin G Potassium 3 MILL.UNITS in Sodium Chloride 0.9% 50 ML IVPB SCH ×4 (04:50→22:48)
[2019-08-08 05:03] LABS: #Basophils 0.1 thou/uL (0.0-0.2); #Lymphocytes 1.6 thou/uL (1.20-3.40); #Monocytes 1.7 thou/uL (0.11-0.59); #Neutrophils 12.1 thou/uL (1.40-6.50); %Basophils 0.4 % (0.0-1.0); %Eosinophils 0.1 % (0.0-10.0); %Lymphocytes 10.2 % (21.0-51.0); %Monocytes 10.9 % (0.0-10.0); %Neutrophils 78.4 % (42.0-75.0); Hemoglobin 10.5 g/dL (12.0-16.0); Mean Corpuscular HGB CONC 33.1 g/dL (32.0-36.0); Mean Corpuscular Hemoglobin 28.8 pg (27.0-31.0); Mean Corpuscular Volume 86.9 fL (78.0-98.0); Mean Platelet Volume 7.9 fL (7.4-10.4); Platelet Count 228 thou/uL (130-400); RBC Distribution Width 12.2 % (11.5-14.5); Red Blood Cell (RBC) Count 3.66 mill/uL (4.20-5.40); White Blood Cell (WBC) Count 15.5 thou/uL (4.8-10.8)
[2019-08-08] MEDS: Clindamycin/D5W 900 MG in Premix Bag 1 BAG IVPB SCH ×3 (05:30→21:17)
[2019-08-08] MEDS: Levothyroxine Sodium 125 MCG TAB PO SCH (06:03)
[2019-08-08] MEDS: PROVENTIL INHALER 6.7 G (200 INHALATIONS) INH SCH ×4 (07:29→18:36)
--- NOTE | 2019-08-08 07:53 | RAD ---
PORTABLE CHEST: Date: 08/08/19 HISTORY: Postop. CCU follow-up. COMPARISON: 08/07/19. FINDINGS: The lungs appear clear. No infiltrate or vascular congestion. Heart size normal. IMPRESSION: No evidence of acute process or significant interval change. POS: [facility]
[2019-08-08] MEDS ORDERED: Insulin Regular 300 UNITS/3 ML VIAL SC PRN ×2 (09:03)
[2019-08-08] MEDS ORDERED: Dextrose 50% Abboject 50 ML SYRINGE SLOW IVP PRN (09:03)
[2019-08-08] MEDS ORDERED: Dextrose 5% in Water 1,000 ML IV PRN (09:03)
--- NOTE | 2019-08-08 09:16 | OP ---
DATE OF PROCEDURE: 08/08/2019 Surgery begun on August 07, 2019 and completed on August 08, 2019. PREOPERATIVE DIAGNOSIS: Left possible early sepsis with hematoma, pelvis and wrist wounds, now 1 full day postop. POSTOPERATIVE DIAGNOSIS: 1. Left wrist hematoma, approximately 10-20 mL. 2. Left pelvis hematoma, deep around mostly outer table where a fracture has propagated posterior and deep along the iliac wing extra-articular from where the bone graft was harvested. COMPLICATIONS: None. FINDINGS: No gross infection. Outer wall arterial bleeder approximately 2 mL artery with active bleeding. Both sides identified and ligated. All other bleeding was from muscular only at the pelvis. No arterial venous bleeders at the wrist wound or the index finger. No gross infection seen with wrist aspirate. PROCEDURES PERFORMED: 1. Aspiration of wrist joint. 2. Evacuation of hematoma, left wrist. 3. Application of VAC, dressing left wrist. 4. Ligation of deep bleeding vessel, arterial, left pelvis. 5. Evacuation of hematoma, left pelvis. 6. VAC application, left pelvis. ESTIMATED BLOOD LOSS: Approximately 300 mL total with approximately 120 mL being clot and approximately 180 mL from the procedure. TOURNIQUET TIME: 11 minutes at the upper extremities only, none for lower extremities. INDICATIONS FOR PROCEDURE: The patient was brought to the operating room approximately 28 hours after having a Kevin L[place] bone graft technique harvested from the iliac crest using the inner-outer table bone. The total bone length taken from the pelvis was approximately 2 cm and its depth was approximately 15 mm. The patient had fevers all the day perioperatively, began at approximately 8 a.m. which ranged from 100.5 to as high as 102.6 and 102.6 was achieved with diaphoresis and sweating. While ambulating approximately a day, she felt "pop" in the pelvis and here demonstrated propagation of the bone graft harvest site to a true iliac wing fracture. Most concerned, however, was her tachycardia, diaphoresis, symptoms, and the fact that she had fevers despite being on antibiotics. Lastly, when her white blood cell count went from 10,000 at 5:30 in the morning to 14,000 at noon to 20,000 at approximately 1830 hours, was indicated that she was perhaps becoming septic and probably hematoma. We know she was not profoundly anemic yet. For this reason, in order to prevent wound infection, wound sepsis, systemic sepsis and symptoms, we counseled her on the risk of not doing surgery then it could lead to infection which would be problematic and then this was our best chance now to remove the hematomas, so we counseled her and she agreed to consent for the opening of her incisions, inspection of wound, removal of hematoma and irrigation and debridement. We also counseled on using a VAC dressing in case of early infection for 48-72 hours before we then finally close the wound. DESCRIPTION OF PROCEDURE: The wrist and the pelvis sites were prepped and draped simultaneously. There was obvious ecchymosis at the pelvis, none at the wrist. We exsanguinated the limb, inflated the tourniquet to 250 mmHg pressure, opened the index finger harvest site for the tendon graft to the EPL from the EIP and we opened the site of the primary wrist incision. First, we found approximately 10 to 20 mL of hematoma right over the extensor indicis proprius, we opened up also the retinaculum repair, inspected the bone graft site, saw no gross infection. We debrided any hematoma, the new defect, and we did the same, opened up the index finger harvest site for extensor indicis proprius. We then began with aspirating the wrist joint, found no fluid, so we inserted 5 mL and withdrew back approximately 3 which was straw colored, no gross infection. This was sent for culture. Immediately before we did the debridement and irrigation, the wound culture was taken of the index finger and the wrist wound, and then after irrigation and debridement with evacuation of hematoma a second culture was taken. Debridement and evacuation included excisional technique to include denuded fat and hematoma, instrumentation used included a [place] blade, tenotomy scissors, Adson's, Pulsavac irrigation, and a curette. There was no evidence of infection along the plate, and the depth was down to bone and the osteotomy site was inspected, there was no gross infection. After the irrigation with 5 L of Pulsavac, where about 4500 was used in the primary wrist wound and about 500 on the index finger tendon harvest site, we released the tourniquet had excellent hemostasis here. We applied the VAC dressing with a bridge from the primary wrist wound to the index finger wound, and this had excellent suction. We then turned our attention to the pelvis and covered the entire wrist and upper extremity with an impervious drape. We then removed the christ, lifted up the subcutaneous skin and removed the Monocryl, we lifted up the fascia and removed #1 Ethibond, and immediately there was hematoma, greatest between the fat, subcutaneous tissue, and the outer wall/outer table. There we could see a fracture involving the inner and outer table propagating back on the superior edge of the iliac limb posteriorly approximately 2 cm, a fracture 1 cm propagated toward the base of the hemipelvis, but nothing into the notch could be seen or palpated. We lifted out the hematoma and it was approximately 100-120 mL. We sent it for culture. We also sent the small amount of blood in the subcutaneous tissue as a subcutaneous pelvic wound culture. Clot was denoted deep pelvic culture. After finishing, lifting the clot, we irrigated with a 5 L normal saline and Pulsavac pressure with antibiotics inside. We inspected the area and found arterial bleeder that was active, approximately Job ID: [id number]
[2019-08-08] MEDS: Bupropion 150 MG XL TAB PO SCH (09:20)
[2019-08-08] MEDS: Metoprolol Tartrate 25 MG TAB PO SCH (09:20)
[2019-08-08] MEDS: Escitalopram Oxalate 20 mg Tablet PO SCH (09:21)
[2019-08-08] MEDS: Gentamicin Sulfate 80 MG in Premix Bag 1 BAG IVPB SCH ×3 (09:23→23:13)
[2019-08-08 09:45] LABS: D-Dimer Test 1.87 *mcg/mL (0.27-0.43)
[2019-08-08 09:55] LABS: Lactic Acid 1.7 mmol/L (0.5-2.2)
--- NOTE | 2019-08-08 10:59 | CON ---
DATE OF CONSULTATION: 08/08/2019 TIME SPENT: 70 minutes of time, of that time, greater than 50% spent with the patient and/or the patient's floor in the hospital. REASON FOR CONSULTATION: ICU care. HISTORY OF PRESENT ILLNESS: This is a 63-year-old female, who apparently had to go back to the OR last night for bone graft revision for a left wrist surgery. She apparently had a left wrist hematoma that had to be evacuated and had lactic acidosis perioperatively. She was brought to the CCU afterward, but never had any indication of hypotension or shock. PAST MEDICAL HISTORY: 1. COPD, followed by Dr. Patel in the office. 2. Hypertension. 3. Hyperlipidemia. 4. Hypothyroidism. 5. Diabetes mellitus. 6. Ischemic colitis. PAST SURGICAL HISTORY: 1. Thyroidectomy. 2. Hysterectomy. 3. Tonsillectomy. 4. Colonoscopy. 5. Left wrist surgery with bone graft in left hip. SOCIAL HISTORY: Quit smoking 1 year ago. Does not drink alcohol. ALLERGIES: NONE. FAMILY MEDICAL HISTORY: Unremarkable. MEDICATIONS: These were reviewed and listed in the summary section on the chart. Of note, she is currently on penicillin and clindamycin and cefazolin for antibiotic coverage. She is receiving nebulization treatment for COPD. Home medications, listed, reviewed under [place] section chart. REVIEW OF SYSTEMS: 12-point review of systems is otherwise negative. PHYSICAL EXAMINATION: VITAL SIGNS: Temperature 99.5, pulse 114, blood pressure 140/72, O2 saturations 99%. GENERAL: She is an elderly female, who appears older than her stated age. HEENT: Pupils are reactive. Sclerae are anicteric. Oropharynx is clear. NECK: No adenopathy or JVD. LUNGS: Clear to auscultation. No wheezing or rhonchi. CARDIAC: S1 and S2. Slightly tachycardic without audible murmur. ABDOMEN: Soft, nontender to palpation. EXTREMITIES: She has a wound VAC over her left hip anteriorly. She has a dressing over her left wrist and arm that I did not take down. No clubbing, cyanosis, or edema. LABORATORY DATA: White blood cell count 15, down from 22.8; platelet count 228; hematocrit 31.8. Sodium 138, potassium 3.6, chloride 101, CO2 of 28, BUN 7, creatinine 0.6, glucose 113. Lactate is now 2.2. Alkaline phosphatase 144. IMAGING STUDIES: Chest x-ray demonstrates hyperinflated lung eisenberg without evidence of mass, effusion, or infiltrate. ASSESSMENT: 1. Transient lactic acidosis related to bleeding in the left wrist region, now repaired operatively. Lactic acidosis has resolved. 2. Chronic obstructive pulmonary disease. 3. Diabetes mellitus. PLAN: From pulmonary standpoint, she is safe to transfer to the floor. Antibiotics will be at Dr. Chan's discretion. COPD is well controlled with nebulization treatments. A Paris catheter is being inserted because the patient has excess amount of urine that she cannot evacuate, and at the current time, she is not allowed to get out of bed per Dr. Chan's orders. Job ID: [id number]
[2019-08-08] MEDS ORDERED: Sodium Chloride 0.9% 500 ML IV SCH (14:15)
[2019-08-08] MEDS: Dextrose 5 % And 0.9 % NaCl 1,000 ML IV SCH ×2 (14:16→20:22)
[2019-08-08] MEDS: Morphine 2 MG/ML SYRINGE IVP PRN (15:19)
[2019-08-08 15:20] LABS: #Basophils 0.1 thou/uL (0.0-0.2); #Eosinphils 0.1 thou/uL (0.0-0.7); #Lymphocytes 1.8 thou/uL (1.20-3.40); #Monocytes 1.8 thou/uL (0.11-0.59); #Neutrophils 12.5 thou/uL (1.40-6.50); %Basophils 0.5 % (0.0-1.0); %Eosinophils 0.5 % (0.0-10.0); %Monocytes 10.8 % (0.0-10.0); %Neutrophils 77.3 % (42.0-75.0); Hemoglobin 10.5 g/dL (12.0-16.0); Mean Corpuscular HGB CONC 33.6 g/dL (32.0-36.0); Mean Corpuscular Hemoglobin 29.3 pg (27.0-31.0); Mean Corpuscular Volume 87.2 fL (78.0-98.0); Mean Platelet Volume 7.9 fL (7.4-10.4); Platelet Count 232 thou/uL (130-400); RBC Distribution Width 12.3 % (11.5-14.5); Red Blood Cell (RBC) Count 3.57 mill/uL (4.20-5.40); White Blood Cell (WBC) Count 16.2 thou/uL (4.8-10.8)
[2019-08-08 15:42] LABS: Anion Gap 12 mmol/L (10-20); BUN (Urea Nitrogen) 7 mg/dL (9.8-20.1); Calc. Creatinine Clearance 103 mL/min (70-130); Calcium 8.3 mg/dL (7.8-10.44); Carbon Dioxide 26 mmol/L (23-31); Chloride 103 mmol/L (98-107); Estimated GFR-MDRD 89; Glucose 107 mg/dL (80-115); Potassium 3.5 mmol/L (3.5-5.1); Sodium 137 mmol/L (136-145)
[2019-08-08] MEDS: Gabapentin 400 MG CAP PO PRN (22:06)
[2019-08-09] MEDS: Morphine 4 MG/ML VIAL SLOW IVP PRN ×2 (03:01→21:32)
[2019-08-09] MEDS: HYDROcodone/Acetaminophen 10/325 mg Tablet PO PRN ×2 (05:11→15:20)
[2019-08-09] MEDS: Levothyroxine Sodium 125 MCG TAB PO SCH (05:12)
[2019-08-09 05:23] LABS: #Eosinphils 0.2 thou/uL (0.0-0.7); #Lymphocytes 1.7 thou/uL (1.20-3.40); #Monocytes 1.3 thou/uL (0.11-0.59); #Neutrophils 7.5 thou/uL (1.40-6.50); %Basophils 0.2 % (0.0-1.0); %Eosinophils 2.1 % (0.0-10.0); %Lymphocytes 16.1 % (21.0-51.0); %Monocytes 11.9 % (0.0-10.0); %Neutrophils 69.7 % (42.0-75.0); Hemoglobin 8.6 g/dL (12.0-16.0); Mean Corpuscular HGB CONC 34.1 g/dL (32.0-36.0); Mean Corpuscular Hemoglobin 29.8 pg (27.0-31.0); Mean Corpuscular Volume 87.4 fL (78.0-98.0); Mean Platelet Volume 7.7 fL (7.4-10.4); Platelet Count 177 thou/uL (130-400); RBC Distribution Width 12.1 % (11.5-14.5); White Blood Cell (WBC) Count 10.8 thou/uL (4.8-10.8)
[2019-08-09] MEDS: Penicillin G Potassium 3 MILL.UNITS in Sodium Chloride 0.9% 50 ML IVPB SCH ×4 (05:31→23:40)
[2019-08-09] MEDS: Dextrose 5 % And 0.9 % NaCl 1,000 ML IV SCH ×3 (05:32→23:39)
[2019-08-09 05:56] LABS: Lactic Acid 2.4 mmol/L (0.5-2.2)
[2019-08-09 05:57] LABS: Anion Gap 11 mmol/L (10-20); BUN (Urea Nitrogen) 6 mg/dL (9.8-20.1); Calc. Creatinine Clearance 103 mL/min (70-130); Calcium 8.2 mg/dL (7.8-10.44); Carbon Dioxide 29 mmol/L (23-31); Chloride 102 mmol/L (98-107); Estimated GFR-MDRD 89; Glucose 95 mg/dL (80-115); Potassium 3.6 mmol/L (3.5-5.1); Sodium 138 mmol/L (136-145)
[2019-08-09] MEDS: Clindamycin/D5W 900 MG in Premix Bag 1 BAG IVPB SCH ×3 (06:44→21:33)
[2019-08-09] MEDS: traMADol HCl 50 MG TAB PO PRN (06:48)
[2019-08-09] MEDS: PROVENTIL INHALER 6.7 G (200 INHALATIONS) INH SCH ×4 (07:19→18:38)
[2019-08-09] MEDS: Bupropion 150 MG XL TAB PO SCH (08:34)
[2019-08-09] MEDS: Lisinopril 10 MG TAB PO SCH ×2 (08:35→21:34)
[2019-08-09] MEDS: Escitalopram Oxalate 20 mg Tablet PO SCH (08:35)
[2019-08-09] MEDS: Aspirin 81 mg Enteric Coated Tablet PO SCH ×2 (08:35→21:34)
[2019-08-09] MEDS: Metoprolol Tartrate 25 MG TAB PO SCH (08:35)
[2019-08-09] MEDS ORDERED: Saccharomyces boulardii 250 MG CAP PO SCH (09:37)
[2019-08-09] MEDS: Saccharomyces boulardii 250 MG CAP PO SCH ×2 (10:07→11:59)
--- NOTE | 2019-08-09 10:35 | CT ---
CT Abdomen Pelvis WO Con: 08/09/2019 3:14 AM HISTORY: Patient had wrist surgery a few days ago and had bone graft harvested from the left iliac cr est. Abdominal pain and bleeding. COMPARISON: Hip radiograph 08/07/2019 TECHNIQUE: Multiple contiguous axial images were obtained and a CT of the abdomen and pelvis without IV contrast . Coronal and sagittal reformats were performed. FINDINGS: This examination is limited for the evaluation of solid organs and vascular structures due to the lac k of intravenous contrast. Lower Chest: Atelectasis in the lung bases. Abdomen: Liver: within normal limits. Bile Ducts: Normal caliber. Gallbladder: Removed. Pancreas: within normal limits. Spleen: Scattered calcified granulomas. Adrenals: within normal limits. Kidneys: within normal limits. Pelvis: Reproductive Organs: Status post hysterectomy. Ureters: within normal limits. Bladder: within normal limits. Bowel: A Paris catheter is seen in the urinary bladder. Mesenteric Lymph Nodes: No enlarged mesenteric lymph nodes. Peritoneum: No ascites or free air, no fluid collection. Vessels: Atherosclerotic calcifications in the aorta Retroperitoneum: within normal limits. Abdominal Wall: There is a wound in the left lower abdominal wall. The underlying oblique musculature is prominent secondary to swelling. Bones: Degenerative changes in the spine and hips. There is a fracture of the left iliac crest withou t surrounding significant hematoma. Surrounding christ are seen and there may be a small amount of Surgicel at the donor site. IMPRESSION: Postsurgical changes around the left iliac crest without surrounding hematoma.
--- NOTE | 2019-08-09 15:51 | PDOC.HOSPP ---
- Subjective Encounter Date: 08/08/19 Encounter Time: 10:00 Subjective: pt up in bed no complains - Objective Vital Signs & Weight: Vital Signs (12 hours) Temp Pulse Resp BP BP Pulse Ox 08/09/19 14:38 81 16 92 L 08/09/19 11:18 98.2 F 84 16 156/74 H 94 L 08/09/19 10:45 82 20 91 L 08/09/19 08:35 110/67 08/09/19 07:20 95 08/09/19 07:19 98.6 F 96 18 110/62 97 08/09/19 05:48 99.4 F 95 16 114/67 92 L Weight Weight 169 lb 15.622 oz Most Recent Monitor Data Heart Rate from ECG 94 NIBP 127/67 NIBP BP-Mean 87 Respiration from ECG 12 SpO2 98 I&O: 08/08/19 08/09/19 08/10/19 06:59 06:59 06:59 Intake Total 1671 1146 700 Output Total 1500 2260 Balance 171 -1114 700 Result Diagrams: 08/09/19 05:08 08/09/19 05:08 Additional Labs: Accuchecks 08/09/19 08/09/19 08/08/19 11:17 05:20 21:30 POC Glucose 158 H 101 98 08/08/19 08/08/19 16:03 12:41 POC Glucose 149 H 126 H Hospitalist ROS - Review of Systems Respiratory: denies: cough, dry, shortness of breath, hemoptysis, SOB with excertion, pleuritic pain, sputum, wheezing, other Cardiovascular: denies: chest pain, palpitations, orthopnea, paroxysmal noc. dyspnea, edema, light headedness, other Gastrointestinal: denies: nausea, vomiting, abdominal pain, diarrhea, constipation, melena, hematochezia, other - Medication Medications: Active Medications Generic Name Dose Route Start Last Admin Trade Name Freq PRN Reason Stop Dose Admin Hydrocodone Bitart/Acetaminophen 1 tab 08/08/19 04:31 08/09/19 15:20 [place] 10/325 PO 1 tab Q4H PRN Administration Mild Pain (1-3) 2ND LINE Albuterol Sulfate 1 puff 08/07/19 19:00 08/09/19 14:38 Proventil Hfa INH 1 puff [id number] SANTA Administration Amitriptyline HCl 50 mg 08/07/19 21:00 08/08/19 20:06 Elavil PO 50 mg HS SANTA Administration Aspirin 81 mg 08/07/19 21:00 08/09/19 08:35 Ecotrin PO 81 mg BID ASNTA Administration Bupropion HCl 450 mg 08/08/19 09:00 08/09/19 08:34 Wellbutrin Xl PO 450 mg DAILY SANTA Administration Diltiazem HCl 240 mg 08/07/19 21:00 08/08/19 20:06 Cardizem Cd PO 240 mg HS SANTA Administration Escitalopram Oxalate 20 mg 08/08/19 09:00 08/09/19 08:35 Lexapro PO 20 mg DAILY SANTA Administration Fentanyl 25 mcg 08/09/19 11:00 08/09/19 11:59 Duragesic TD 25 mcg Q2D SANTA Administration Gabapentin 400 mg 08/07/19 17:25 08/08/19 22:06 Neurontin PO 400 mg BIDPRN PRN Administration Pain Dextrose/Sodium Chloride 1,000 mls @ 75 mls/hr 08/08/19 12:30 08/09/19 05:32 D5 0.9% Ns IV Not Given .[id number] SANTA Clindamycin Phosphate/Dextrose 50 mls @ 100 mls/hr 08/08/19 06:00 08/09/19 15 :19 900 mg/ Device IVPB 50 mls Q8HR SANTA Administration Penicillin G Potassium 3 mill. 50 mls @ 100 mls/hr 08/08/19 05:00 08/09/19 12 :21 units/ Sodium Chloride IVPB 50 mls 0500,1100,1700,2300 SANTA Administration Levothyroxine Sodium 125 mcg 08/08/19 06:00 08/09/19 05:12 Synthroid PO 125 mcg 0600 SANTA Administration Lisinopril 10 mg 08/07/19 21:00 08/09/19 08:35 Zestril PO 10 mg BID SANTA Administration Metoprolol Tartrate 25 mg 08/08/19 09:00 08/09/19 08:35 Lopressor PO 25 mg DAILY SANTA Administration Morphine Sulfate 2 mg 08/07/19 17:30 08/08/19 15:19 Morphine IVP 2 mg Q2H PRN Administration Moderate Pain (4-6) Morphine Sulfate 4 mg 08/08/19 04:27 08/09/19 03:01 Morphine SLOW IVP 4 mg Q4H PRN Administration Severe Pain 7-10 BREAKTHROUGH Pantoprazole Sodium 40 mg 08/07/19 21:00 08/09/19 08:35 Protonix PO 40 mg BID SANTA Administration Quetiapine Fumarate 75 mg 08/07/19 21:00 08/08/19 20:05 Seroquel PO 75 mg HS SANTA Administration Tramadol HCl 50 mg 08/07/19 17:23 08/09/19 06:48 Ultram PO 50 mg Q6H PRN Administration Mild Pain (1-3) - Exam Neck: negative: supple, symmetric, no JVD, no thyromegaly, no lymphadenopathy, no carotid bruit, JVD Heart: negative: RRR, no murmur, no gallops, no rubs, normal peripheral pulses, irregular, diminshed peripheral pulses, murmur present, II/IV, III/IV Respiratory: negative: CTAB, no wheezes, no rales, no ronchi, normal chest expansion, no tachypnea, normal percussion, rales, rhonchi, tachypneic, wheezes Extremities - other findings: significant erythema to left hip area. Hosp A/P (1) Sepsis Code(s): A41.9 - SEPSIS, UNSPECIFIED ORGANISM Status: Acute (2) Hematoma Code(s): T14.8XXA - OTHER INJURY OF UNSPECIFIED BODY REGION, INITIAL ENCOUNTER Status: Acute (3) Abdominal pain Code(s): R10.9 - UNSPECIFIED ABDOMINAL PAIN Status: Acute - Plan pt states she feels well. pt on abx per surgeon. lactic acid has improved. ? ID consult
--- NOTE | 2019-08-09 15:55 | PDOC.HOSPP ---
- Objective Vital Signs & Weight: Vital Signs (12 hours) Temp Pulse Resp BP BP Pulse Ox 08/09/19 14:38 81 16 92 L 08/09/19 11:18 98.2 F 84 16 156/74 H 94 L 08/09/19 10:45 82 20 91 L 08/09/19 08:35 110/67 08/09/19 07:20 95 08/09/19 07:19 98.6 F 96 18 110/62 97 08/09/19 05:48 99.4 F 95 16 114/67 92 L Weight Weight 169 lb 15.622 oz Most Recent Monitor Data Heart Rate from ECG 94 NIBP 127/67 NIBP BP-Mean 87 Respiration from ECG 12 SpO2 98 I&O: 08/08/19 08/09/19 08/10/19 06:59 06:59 06:59 Intake Total 1671 1146 700 Output Total 1500 2260 Balance 171 -1114 700 Result Diagrams: 08/09/19 05:08 08/09/19 05:08 Additional Labs: Accuchecks 08/09/19 08/09/19 08/08/19 11:17 05:20 21:30 POC Glucose 158 H 101 98 08/08/19 08/08/19 16:03 12:41 POC Glucose 149 H 126 H Hospitalist ROS - Medication Medications: Active Medications Generic Name Dose Route Start Last Admin Trade Name Freq PRN Reason Stop Dose Admin Hydrocodone Bitart/Acetaminophen 1 tab 08/08/19 04:31 08/09/19 15:20 [place] 10/325 PO 1 tab Q4H PRN Administration Mild Pain (1-3) 2ND LINE Albuterol Sulfate 1 puff 08/07/19 19:00 08/09/19 14:38 Proventil Hfa INH 1 puff [id number] SANTA Administration Amitriptyline HCl 50 mg 08/07/19 21:00 08/08/19 20:06 Elavil PO 50 mg HS SANTA Administration Aspirin 81 mg 08/07/19 21:00 08/09/19 08:35 Ecotrin PO 81 mg BID SANTA Administration Bupropion HCl 450 mg 08/08/19 09:00 08/09/19 08:34 Wellbutrin Xl PO 450 mg DAILY SANTA Administration Diltiazem HCl 240 mg 08/07/19 21:00 08/08/19 20:06 Cardizem Cd PO 240 mg HS SANTA Administration Escitalopram Oxalate 20 mg 08/08/19 09:00 08/09/19 08:35 Lexapro PO 20 mg DAILY SANTA Administration Fentanyl 25 mcg 08/09/19 11:00 08/09/19 11:59 Duragesic TD 25 mcg Q2D S[facility]A Administration Gabapentin 400 mg 08/07/19 17:25 08/08/19 22:06 Neurontin PO 400 mg BIDPRN PRN Administration Pain Dextrose/Sodium Chloride 1,000 mls @ 75 mls/hr 08/08/19 12:30 08/09/19 05:32 D5 0.9% Ns IV Not Given .[id number] SANTA Clindamycin Phosphate/Dextrose 50 mls @ 100 mls/hr 08/08/19 06:00 08/09/19 15 :19 900 mg/ Device IVPB 50 mls Q8HR SANTA Administration Penicillin G Potassium 3 mill. 50 mls @ 100 mls/hr 08/08/19 05:00 08/09/19 12 :21 units/ Sodium Chloride IVPB 50 mls 0500,1100,1700,2300 SANTA Administration Levothyroxine Sodium 125 mcg 08/08/19 06:00 08/09/19 05:12 Synthroid PO 125 mcg 0600 SANTA Administration Lisinopril 10 mg 08/07/19 21:00 08/09/19 08:35 Zestril PO 10 mg BID SANTA Administration Metoprolol Tartrate 25 mg 08/08/19 09:00 08/09/19 08:35 Lopressor PO 25 mg DAILY SANTA Administration Morphine Sulfate 2 mg 08/07/19 17:30 08/08/19 15:19 Morphine IVP 2 mg Q2H PRN Administration Moderate Pain (4-6) Morphine Sulfate 4 mg 08/08/19 04:27 08/09/19 03:01 Morphine SLOW IVP 4 mg Q4H PRN Administration Severe Pain 7-10 BREAKTHROUGH Pantoprazole Sodium 40 mg 08/07/19 21:00 08/09/19 08:35 Protonix PO 40 mg BID SANTA Administration Quetiapine Fumarate 75 mg 08/07/19 21:00 08/08/19 20:05 Seroquel PO 75 mg HS SANTA Administration Tramadol HCl 50 mg 08/07/19 17:23 08/09/19 06:48 Ultram PO 50 mg Q6H PRN Administration Mild Pain (1-3) Hosp A/P (1) Sepsis Code(s): A41.9 - SEPSIS, UNSPECIFIED ORGANISM Status: Acute (2) Hematoma Code(s): T14.8XXA - OTHER INJURY OF UNSPECIFIED BODY REGION, INITIAL ENCOUNTER Status: Acute (3) Abdominal pain Code(s): R10.9 - UNSPECIFIED ABDOMINAL PAIN Status: Acute - Plan pt states she feels well. pt on abx per surgeon. lactic acid has improved. ? ID consult 08/09 pt's hh is 8 but she has been having large amount of bloody drainage from her wound vac. she is getting 2units of blood. she is on abx, cx so far negative. pt had left iliac bone graft harvest on tuesday. She started to feel unwell and met criteria for sepsis. she under went evacuation of hematoma of left wrist and left pelvic with ligation of deep bleeding vessel arterial of left pelvic. so far her cx negative and her erythema has improved. clinically she appears well.
[2019-08-09 17:39] LABS: Hemoglobin 10.7 g/dL (12.0-16.0); Platelet Count 205 thou/uL (130-400)
[2019-08-09] MEDS: Amitriptyline HCl 100 MG TAB PO SCH (21:34)
[2019-08-09] MEDS: Gabapentin 400 MG CAP PO PRN (21:34)
[2019-08-10] MEDS: Penicillin G Potassium 3 MILL.UNITS in Sodium Chloride 0.9% 50 ML IVPB SCH ×2 (04:41→11:33)
[2019-08-10 05:43] LABS: Lactic Acid 0.8 mmol/L (0.5-2.2)
[2019-08-10 05:44] LABS: Anion Gap 8 mmol/L (10-20); BUN (Urea Nitrogen) Less than 4 mg/dL (9.8-20.1); Calc. Creatinine Clearance 113 mL/min (70-130); Calcium 8.5 mg/dL (7.8-10.44); Carbon Dioxide 30 mmol/L (23-31); Chloride 104 mmol/L (98-107); Estimated GFR-MDRD Greater than 90; Glucose 85 mg/dL (80-115); Potassium 3.2 mmol/L (3.5-5.1); Sodium 139 mmol/L (136-145)
[2019-08-10] MEDS: Levothyroxine Sodium 125 MCG TAB PO SCH (05:55)
[2019-08-10] MEDS: Clindamycin/D5W 900 MG in Premix Bag 1 BAG IVPB SCH ×3 (05:55→22:15)
[2019-08-10] MEDS: PROVENTIL INHALER 6.7 G (200 INHALATIONS) INH SCH ×4 (06:31→18:55)
[2019-08-10] MEDS ORDERED: Sodium Chloride 0.9% 10 ML ONE ×2 (07:00→09:21)
[2019-08-10] MEDS ORDERED: Bupivacaine PF 0.5% 30 ML VIAL ONE ×2 (07:00→08:49)
[2019-08-10] MEDS ORDERED: Bacitracin Zinc Ointment 30 gm TUBE ONE (07:00)
[2019-08-10] MEDS ORDERED: Phenylephrine HCL 10 MG/ML VIAL ONE (07:03)
[2019-08-10] MEDS ORDERED: Fentanyl 100 MCG/2 ML VIAL ONE ×3 (07:03→10:27)
[2019-08-10] MEDS ORDERED: Thrombin 5000 UNITS/5 ML VIAL ONE (08:11)
[2019-08-10] MEDS ORDERED: Promethazine HCl 25 MG/ML VIAL SLOW IVP PRN (08:28)
[2019-08-10] MEDS ORDERED: Ondansetron HCl/PF 4 MG/2 ML Vial IVP PRN (08:28)
[2019-08-10] MEDS ORDERED: Promethazine HCl 25 MG/ML VIAL IM PRN (08:28)
[2019-08-10] MEDS ORDERED: SUGAMMADEX SODIUM 500 MG/5 ML VIAL ONE ×2 (10:11)
[2019-08-10] MEDS: Aspirin 81 mg Enteric Coated Tablet PO SCH ×2 (11:23→20:35)
[2019-08-10] MEDS: Escitalopram Oxalate 20 mg Tablet PO SCH (11:23)
[2019-08-10] MEDS: Lisinopril 10 MG TAB PO SCH ×3 (11:23→20:34)
[2019-08-10] MEDS: Bupropion 150 MG XL TAB PO SCH (11:23)
[2019-08-10] MEDS: Morphine 4 MG/ML VIAL SLOW IVP PRN ×2 (11:24→16:35)
[2019-08-10] MEDS: Metoprolol Tartrate 25 MG TAB PO SCH ×2 (11:27→13:20)
[2019-08-10] MEDS: Saccharomyces boulardii 250 MG CAP PO SCH (11:27)
[2019-08-10 11:49] LABS: #Eosinphils 0.2 thou/uL (0.0-0.7); #Monocytes 0.9 thou/uL (0.11-0.59); #Neutrophils 6.4 thou/uL (1.40-6.50); %Basophils 0.1 % (0.0-1.0); %Eosinophils 2.7 % (0.0-10.0); %Lymphocytes 12.1 % (21.0-51.0); %Monocytes 10.6 % (0.0-10.0); %Neutrophils 74.5 % (42.0-75.0); Hemoglobin 10.4 g/dL (12.0-16.0); Mean Corpuscular HGB CONC 33.2 g/dL (32.0-36.0); Mean Corpuscular Hemoglobin 29.2 pg (27.0-31.0); Mean Corpuscular Volume 87.9 fL (78.0-98.0); Mean Platelet Volume 8.1 fL (7.4-10.4); Platelet Count 245 thou/uL (130-400); RBC Distribution Width 12.3 % (11.5-14.5); Red Blood Cell (RBC) Count 3.58 mill/uL (4.20-5.40); White Blood Cell (WBC) Count 8.5 thou/uL (4.8-10.8)
[2019-08-10 12:12] LABS: Anion Gap 11 mmol/L (10-20); BUN (Urea Nitrogen) Less than 4 mg/dL (9.8-20.1); Calc. Creatinine Clearance 110 mL/min (70-130); Calcium 8.5 mg/dL (7.8-10.44); Carbon Dioxide 29 mmol/L (23-31); Chloride 102 mmol/L (98-107); Estimated GFR-MDRD Greater than 90; Glucose 94 mg/dL (80-115); Potassium 3.3 mmol/L (3.5-5.1); Sodium 139 mmol/L (136-145)
[2019-08-10] MEDS ORDERED: Ondansetron PF 4 MG/2 ML Vial ONE (12:54)
[2019-08-10] MEDS ORDERED: Lidocaine 1% PF 5 ML VIAL ONE (12:54)
[2019-08-10] MEDS ORDERED: Rocuronium Bromide 10 MG/ML (10ML VIAL) ONE (12:54)
[2019-08-10] MEDS ORDERED: PHENYLEPHRINE-NS 100 MCG/ML 10 ML SYRINGE ONE (12:54)
[2019-08-10] MEDS ORDERED: Esmolol 100 MG/10 ML VIAL ONE (12:54)
[2019-08-10] MEDS ORDERED: Glycopyrrolate 0.2 MG/ML 5 ML SYRINGE ONE (12:54)
[2019-08-10] MEDS ORDERED: PROPOFOL 200 MG/20 ML VIAL ONE (12:54)
--- NOTE | 2019-08-10 13:13 | OP ---
DATE OF PROCEDURE: 08/10/2019 PREOPERATIVE DIAGNOSIS: Left iliac crest and wing fracture. POSTOPERATIVE DIAGNOSIS: Left iliac crest and wing fracture. PROCEDURE PERFORMED: Open reduction and internal fixation of left ilium. ANESTHESIA: General. FUR OPERATOR: Spike Chan ND. ESTIMATED BLOOD LOSS: 200 mL. IMPLANT: Synthes 4.0 mm cortical screws x3. COMPLICATIONS: None. DRAINS: None. SPECIMEN: None. OUTCOME: Satisfactory. 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 The patient is now status post iliac crest bone graft harvest for the treatment of this wrist. Unfortunately, following her procedure four days ago while getting up with therapy, she felt a pop and subsequent fracture of the iliac crest with extension down into the iliac wing. There is no destabilization of the pelvis itself, however, with this crest displacement I have been asked to see patient by Dr. Chan for evaluation and possible surgical intervention. Today, I had a discussion with the patient including risks and benefits. She would like to proceed with surgery as indicated. DESCRIPTION OF PROCEDURE: The patient was placed supine on a radiolucent table and a sterile prep and drape was performed of the left anterior iliac crest and the left upper extremity. The sutures from her previous surgery were removed and essentially dissection was already complete down to the iliac crest. Inspection showed a complex fracture with the anterior superior iliac spine completely detached, a gap where the bone graft was harvested from and then a fracture extending down into the iliac wing with comminution as well as along the more posterior crest. Given the extensive nature of this fracture, we did decide to proceed with stabilization of the crest segments back to the wing. As such, the fracture posteriorly was reduced, held in place with a bone tenaculum and then a drill passed from this crest segment of bone into the ilium between the 2 cortical surfaces. Once appropriately positioned, a 4.0 mm cortical screw was used to stabilize this segment with excellent compression across the fracture site. Next, attention was placed at the anterior superior iliac spine segment. This too was reduced to anatomic alignment and checked with C-arm imaging. It was held in place provisionally with a K-wire and then two 4.0 mm cortical screws were placed stabilizing this piece. At the completion of this, C-arm images were obtained including obturator oblique, iliac oblique and AP of the wing. This showed anatomic hoahaoism of the anterior superior iliac spine and hoahaoism of a more normal appearing anatomy of the crest posteriorly, but still with some comminution along the wing that was felt to be not destabilizing of the pelvis and not really in need of surgical stabilization. As such, the wound was thoroughly irrigated with normal saline and then closure performed with #1 Vicryl for fascia, 2-0 Vicryl and christ. This was done over a drain. At the completion of this, the patient was left in the operating room with plans to proceed with further surgery on the left wrist with Dr. Ponce Chan. Job ID: [id number]
[2019-08-10] MEDS: HYDROcodone/Acetaminophen 10/325 mg Tablet PO PRN (13:22)
--- NOTE | 2019-08-10 13:52 | PDOC.HOSPP ---
- Subjective Encounter Date: 08/10/19 Encounter Time: 12:30 Subjective: pt up in bed post surgery will monitor. - Objective Vital Signs & Weight: Vital Signs (12 hours) Temp Pulse Resp BP BP Pulse Ox 08/10/19 13:20 183/74 H 08/10/19 06:32 92 L 08/10/19 06:31 84 16 92 L 08/10/19 03:33 98.7 F 104 H 18 126/76 93 L Weight Weight 169 lb 15.622 oz Most Recent Monitor Data Heart Rate from ECG 94 NIBP 127/67 NIBP BP-Mean 87 Respiration from ECG 12 SpO2 98 I&O: 08/09/19 08/10/19 08/11/19 06:59 06:59 06:59 Intake Total 1146 4030 Output Total 2260 4905 Balance -0114 -261 Result Diagrams: 08/10/19 11:27 08/10/19 11:27 Additional Labs: Accuchecks 08/10/19 08/09/19 05:16 20:08 POC Glucose 94 103 Hospitalist ROS - Review of Systems Respiratory: denies: cough, dry, shortness of breath, hemoptysis, SOB with excertion, pleuritic pain, sputum, wheezing, other Cardiovascular: denies: chest pain, palpitations, orthopnea, paroxysmal noc. dyspnea, edema, light headedness, other Gastrointestinal: denies: nausea, vomiting, abdominal pain, diarrhea, constipation, melena, hematochezia, other - Medication Medications: Active Medications Generic Name Dose Route Start Last Admin Trade Name Freq PRN Reason Stop Dose Admin Hydrocodone Bitart/Acetaminophen 1 tab 08/08/19 04:31 08/10/19 13:22 [place] 10/325 PO 1 tab Q4H PRN Administration Mild Pain (1-3) 2ND LINE Albuterol Sulfate 1 puff 08/07/19 19:00 08/10/19 10:47 Proventil Hfa INH Not Given [id number] [facility] Amitriptyline HCl 50 mg 08/07/19 21:00 08/09/19 21:34 Elavil PO 50 mg HS [facility] Administration Aspirin 81 mg 08/07/19 21:00 08/10/19 11:23 Ecotrin PO Not Given BID [facility] Bupropion HCl 450 mg 08/08/19 09:00 08/10/19 11:23 Wellbutrin Xl PO Not Given DAILY [facility] Diltiazem HCl 240 mg 08/07/19 21:00 08/09/19 21:34 Cardizem Cd PO 240 mg HS [facility] Administration Escitalopram Oxalate 20 mg 08/08/19 09:00 08/10/19 11:23 Lexapro PO Not Given DAILY [facility] Fentanyl 25 mcg 08/09/19 11:00 08/09/19 11:59 Duragesic TD 25 mcg Q2D [facility] Administration Gabapentin 400 mg 08/07/19 17:25 08/09/19 21:34 Neurontin PO 400 mg BIDPRN PRN Administration Pain Dextrose/Sodium Chloride 1,000 mls @ 75 mls/hr 08/08/19 12:30 08/09/19 23:39 D5 0.9% Ns IV 1,000 mls .[id number] [facility] Administration Penicillin G Potassium 3 mill. 50 mls @ 100 mls/hr 08/08/19 05:00 08/10/19 11 :33 units/ Sodium Chloride IVPB 50 mls 0500,1100,1700,2300 [facility] Administration Levothyroxine Sodium 125 mcg 08/08/19 06:00 08/10/19 05:55 Synthroid PO Not Given 0600 [facility] Lisinopril 10 mg 08/07/19 21:00 08/10/19 13:20 Zestril PO 10 mg BID [facility] Administration Metoprolol Tartrate 25 mg 08/08/19 09:00 08/10/19 13:20 Lopressor PO 25 mg DAILY [facility] Administration Morphine Sulfate 2 mg 08/07/19 17:30 08/08/19 15:19 Morphine IVP 2 mg Q2H PRN Administration Moderate Pain (4-6) Morphine Sulfate 4 mg 08/08/19 04:27 08/10/19 11:24 Morphine SLOW IVP 4 mg Q4H PRN Administration Severe Pain 7-10 BREAKTHROUGH Pantoprazole Sodium 40 mg 08/07/19 21:00 08/10/19 11:27 Protonix PO Not Given BID [facility] Quetiapine Fumarate 75 mg 08/07/19 21:00 08/09/19 21:33 Seroquel PO 75 mg HS [facility] Administration Saccharomyces Boulardii 250 mg 08/10/19 09:00 08/10/19 11:27 Florastor PO Not Given DAILY [facility] Tramadol HCl 50 mg 08/07/19 17:23 08/09/19 06:48 Ultram PO 50 mg Q6H PRN Administration Mild Pain (1-3) - Exam Neck: negative: supple, symmetric, no JVD, no thyromegaly, no lymphadenopathy, no carotid bruit, JVD Heart: negative: RRR, no murmur, no gallops, no rubs, normal peripheral pulses, irregular, diminshed peripheral pulses, murmur present, II/IV, III/IV Respiratory: negative: CTAB, no wheezes, no rales, no ronchi, normal chest expansion, no tachypnea, normal percussion, rales, rhonchi, tachypneic, wheezes Hosp A/P (1) Sepsis Code(s): A41.9 - SEPSIS, UNSPECIFIED ORGANISM Status: Acute (2) Hematoma Code(s): T14.8XXA - OTHER INJURY OF UNSPECIFIED BODY REGION, INITIAL ENCOUNTER Status: Acute (3) Abdominal pain Code(s): R10.9 - UNSPECIFIED ABDOMINAL PAIN Status: Acute - Plan pt states she feels well. pt on abx per surgeon. lactic acid has improved. ? ID consult 08/09 pt's hh is 8 but she has been having large amount of bloody drainage from her wound vac. she is getting 2units of blood. she is on abx, cx so far negative. pt had left iliac bone graft harvest on tuesday. She started to feel unwell and met criteria for sepsis. she under went evacuation of hematoma of left wrist and left pelvic with ligation of deep bleeding vessel arterial of left pelvic. so far her cx negative and her erythema has improved. clinically she appears well. 08/10 pt under went orif of left ilium, removal of wound vac. pt is on penicillin, could change it to clindamycin which will cover mrsa. will monitor hh.
--- NOTE | 2019-08-10 14:45 | RAD ---
Radiograph pelvis 3 views: DATE: 08/10/2019 HISTORY: 63-year-old female with traumatic, acute, comminuted displaced fracture of left iliac wing. FINDINGS: Fluoroscopic spot images obtained with C-arm in the OR. The comminuted displaced left iliac wing frac ture is much better demonstrated on the CT of 08/09/2019 rather than the plain radiograph of 08/07/2019. On the current study, 3 completely threaded long screws have been placed across the left iliac wing. IMPRESSION: Interval screw fixation of acute, traumatic, comminuted, displaced, closed fracture of left iliac win g.
[2019-08-10] MEDS: Gabapentin 400 MG CAP PO PRN (15:03)
[2019-08-10] MEDS: Meperidine HCl/PF 25 MG/ML VIAL IM PRN (18:36)
[2019-08-10] MEDS: hydrOXYzine 25 MG/ML VIAL IM PRN (18:36)
[2019-08-10] MEDS: Dextrose 5 % And 0.9 % NaCl 1,000 ML IV SCH ×2 (19:21→20:40)
[2019-08-10] MEDS: Amitriptyline HCl 100 MG TAB PO SCH (20:35)
[2019-08-10] MEDS: Acetaminophen 325 MG TAB PO PRN (20:36)
[2019-08-11] MEDS: HYDROcodone/Acetaminophen 10/325 mg Tablet PO PRN ×3 (03:56→16:48)
[2019-08-11] MEDS: Levothyroxine Sodium 125 MCG TAB PO SCH (05:29)
[2019-08-11] MEDS: Clindamycin/D5W 900 MG in Premix Bag 1 BAG IVPB SCH ×3 (05:30→21:17)
[2019-08-11] MEDS: PROVENTIL INHALER 6.7 G (200 INHALATIONS) INH SCH ×4 (06:58→18:45)
[2019-08-11] MEDS: Metoprolol Tartrate 25 MG TAB PO SCH (08:46)
[2019-08-11] MEDS: Escitalopram Oxalate 20 mg Tablet PO SCH (08:46)
[2019-08-11] MEDS: Bupropion 150 MG XL TAB PO SCH (08:46)
[2019-08-11] MEDS: Saccharomyces boulardii 250 MG CAP PO SCH (08:46)
[2019-08-11] MEDS: Aspirin 81 mg Enteric Coated Tablet PO SCH ×2 (08:47→21:16)
[2019-08-11] MEDS: Lisinopril 10 MG TAB PO SCH ×2 (08:47→21:17)
[2019-08-11] MEDS: Gabapentin 400 MG CAP PO PRN (08:49)
--- NOTE | 2019-08-11 13:04 | PDOC.HOSPP ---
- Subjective Encounter Date: 08/11/19 Encounter Time: 08:20 Subjective: Pt seen for followup re: sepsis. Feels better. - Objective Vital Signs & Weight: Vital Signs (12 hours) Temp Pulse Resp BP BP Pulse Ox 08/11/19 11:30 98.4 F 94 18 124/72 89 L 08/11/19 10:47 86 16 95 08/11/19 08:47 146/68 H 08/11/19 07:58 98.6 F 85 16 146/68 H 90 L 08/11/19 06:59 95 08/11/19 06:58 61 16 95 08/11/19 04:00 98.9 F 112 H 16 161/67 H 94 L Weight Weight 169 lb 15.622 oz Most Recent Monitor Data Heart Rate from ECG 94 NIBP 127/67 NIBP BP-Mean 87 Respiration from ECG 12 SpO2 98 I&O: 08/10/19 08/11/19 08/12/19 06:59 06:59 06:59 Intake Total 4030 1300 Output Total 4905 3960 Balance -445 -5169 Result Diagrams: 08/10/19 11:27 08/10/19 11:27 Additional Labs: Accuchecks 08/11/19 08/11/19 08/10/19 11:37 05:37 20:44 POC Glucose 124 H 93 82 08/10/19 15:56 POC Glucose 104 Labs and MARs reviewed by ca Hospitalist ROS - Review of Systems Cardiovascular: denies: chest pain, palpitations, orthopnea, paroxysmal noc. dyspnea, edema, light headedness Gastrointestinal: denies: nausea, vomiting, abdominal pain, diarrhea, constipation, melena, hematochezia - Medication Medications: Active Medications Generic Name Dose Route Start Last Admin Trade Name Freq PRN Reason Stop Dose Admin Acetaminophen 650 mg 08/08/19 04:31 08/10/19 20:36 Tylenol PO 650 mg Q12H PRN Administration Headache/Fever or Pain-MILD Hydrocodone Bitart/Acetaminophen 1 tab 08/08/19 04:31 08/11/19 11:22 [place] 10/325 PO 1 tab Q4H PRN Administration Mild Pain (1-3) 2ND LINE Albuterol Sulfate 1 puff 08/07/19 19:00 08/11/19 10:47 Proventil Hfa INH 1 puff [id number] [facility] Administration Amitriptyline HCl 50 mg 08/07/19 21:00 08/10/19 20:35 Elavil PO 50 mg HS [facility] Administration Aspirin 81 mg 08/07/19 21:00 08/11/19 08:47 Ecotrin PO 81 mg BID [facility] Administration Bupropion HCl 450 mg 08/08/19 09:00 08/11/19 08:46 Wellbutrin Xl PO 450 mg DAILY [facility] Administration Diltiazem HCl 240 mg 08/07/19 21:00 08/10/19 20:35 Cardizem Cd PO 240 mg HS [facility] Administration Escitalopram Oxalate 20 mg 08/08/19 09:00 08/11/19 08:46 Lexapro PO 20 mg DAILY [facility] Administration Fentanyl 25 mcg 08/09/19 11:00 08/11/19 11:56 Duragesic TD 25 mcg Q2D [facility] Administration Gabapentin 400 mg 08/07/19 17:25 08/11/19 08:49 Neurontin PO 400 mg BIDPRN PRN Administration Pain Hydroxyzine HCl 25 mg 08/08/19 04:27 08/10/19 18:36 Vistaril IM 25 mg Q4H PRN Administration GIVE WITH DEMEROL Dextrose/Sodium Chloride 1,000 mls @ 75 mls/hr 08/08/19 12:30 08/10/19 20:40 D5 0.9% Ns IV 1,000 mls .[id number] [facility] Administration Clindamycin Phosphate/Dextrose 50 mls @ 100 mls/hr 08/10/19 14:00 08/11/19 05 :30 900 mg/ Device IVPB 50 mls Q8HR [facility] Administration Levothyroxine Sodium 125 mcg 08/08/19 06:00 08/11/19 05:29 Synthroid PO 125 mcg 0600 [facility] Administration Lisinopril 10 mg 08/07/19 21:00 08/11/19 08:47 Zestril PO 10 mg BID [facility] Administration Meperidine HCl 25 mg 08/07/19 17:23 08/10/19 18:36 Demerol IM 25 mg Q6H PRN Administration .SEVERE PAIN Metoprolol Tartrate 25 mg 08/08/19 09:00 08/11/19 08:46 Lopressor PO 25 mg DAILY [facility] Administration Morphine Sulfate 2 mg 08/07/19 17:30 08/08/19 15:19 Morphine IVP 2 mg Q2H PRN Administration Moderate Pain (4-6) Morphine Sulfate 4 mg 08/08/19 04:27 08/10/19 16:35 Morphine SLOW IVP 4 mg Q4H PRN Administration Severe Pain 7-10 BREAKTHROUGH Pantoprazole Sodium 40 mg 08/07/19 21:00 08/11/19 08:47 Protonix PO 40 mg BID [facility] Administration Quetiapine Fumarate 75 mg 08/07/19 21:00 08/10/19 20:35 Seroquel PO 75 mg HS [facility] Administration Saccharomyces Boulardii 250 mg 08/10/19 09:00 08/11/19 08:46 Florastor PO 250 mg DAILY [facility] Administration Tramadol HCl 50 mg 08/07/19 17:23 08/09/19 06:48 Ultram PO 50 mg Q6H PRN Administration Mild Pain (1-3) - Exam General Appearance: NAD Eye: anicteric sclera ENT: moist mucosa Neck: supple, no JVD Heart: RRR Respiratory: CTAB, no rales Gastrointestinal: soft, non-tender Skin - other findings: dressing LUE, iliac crest Psychiatric: normal affect, normal behavior Hosp A/P (1) Sepsis Code(s): A41.9 - SEPSIS, UNSPECIFIED ORGANISM Status: Acute (2) Hematoma Code(s): T14.8XXA - OTHER INJURY OF UNSPECIFIED BODY REGION, INITIAL ENCOUNTER Status: Acute - Plan plan discussed w/ family, continue antibiotics, PT/OT, out of bed/ambulate Continue IV clindamycin, follow cultures/
[2019-08-11] MEDS: Amitriptyline HCl 100 MG TAB PO SCH (21:16)
[2019-08-11] MEDS: Acetaminophen 325 MG TAB PO PRN (21:16)
[2019-08-11] MEDS: Gabapentin 400 MG CAP PO SCH (21:17)
[2019-08-12] MEDS: hydrOXYzine 25 MG/ML VIAL IM PRN (00:01)
[2019-08-12 04:01] LABS: Eosinophils 2 % (0-10); Hemoglobin 9.7 g/dL (12.0-16.0); Lymphocytes 23 % (21-51); MDiff Complete? YES; Mean Corpuscular HGB CONC 33.7 g/dL (32.0-36.0); Mean Corpuscular Hemoglobin 29.4 pg (27.0-31.0); Mean Corpuscular Volume 87.2 fL (78.0-98.0); Mean Platelet Volume 7.8 fL (7.4-10.4); Metamyelocyte 1 % (0-0); Monocytes 14 % (0-10); Neutrophil 60 % (42-75); Platelet Count 241 thou/uL (130-400); Platelet Morphology Comment Appears Adequate; RBC Distribution Width 12.3 % (11.5-14.5); Red Blood Cell (RBC) Count 3.31 mill/uL (4.20-5.40); White Blood Cell (WBC) Count 8.2 thou/uL (4.8-10.8)
[2019-08-12] MEDS: Levothyroxine Sodium 125 MCG TAB PO SCH (05:18)
[2019-08-12] MEDS: Clindamycin/D5W 900 MG in Premix Bag 1 BAG IVPB SCH ×2 (05:18→13:08)
[2019-08-12] MEDS: PROVENTIL INHALER 6.7 G (200 INHALATIONS) INH SCH ×4 (07:56→18:58)
[2019-08-12] MEDS: Escitalopram Oxalate 20 mg Tablet PO SCH (09:04)
[2019-08-12] MEDS: Metoprolol Tartrate 25 MG TAB PO SCH (09:04)
[2019-08-12] MEDS: Gabapentin 400 MG CAP PO SCH ×2 (09:04→20:08)
[2019-08-12] MEDS: Lisinopril 10 MG TAB PO SCH ×2 (09:04→20:09)
[2019-08-12] MEDS: Saccharomyces boulardii 250 MG CAP PO SCH (09:04)
[2019-08-12] MEDS: Bupropion 150 MG XL TAB PO SCH (09:04)
[2019-08-12] MEDS: HYDROcodone/Acetaminophen 10/325 mg Tablet PO PRN ×3 (09:05→17:06)
[2019-08-12] MEDS: Aspirin 81 mg Enteric Coated Tablet PO SCH ×2 (09:05→20:08)
--- NOTE | 2019-08-12 18:54 | PDOC.HOSPP ---
- Subjective Encounter Date: 08/12/19 Encounter Time: 09:00 Subjective: Pt seen for followup re: sepsis. feels better. - Objective Vital Signs & Weight: Vital Signs (12 hours) Temp Pulse Resp BP Pulse Ox 08/12/19 15:15 97.6 F 86 18 119/74 95 08/12/19 14:06 85 18 93 L 08/12/19 11:42 97.8 F 65 20 109/72 100 08/12/19 10:57 78 20 96 08/12/19 07:56 84 18 97 08/12/19 07:30 98.5 F 89 16 150/76 H 93 L Weight Weight 169 lb 15.622 oz Most Recent Monitor Data Heart Rate from ECG 94 NIBP 127/67 NIBP BP-Mean 87 Respiration from ECG 12 SpO2 98 I&O: 08/11/19 08/12/19 08/13/19 06:59 06:59 06:59 Intake Total 1300 1995 1700 Output Total 3960 4845 1260 Balance -1470 -1646 440 Result Diagrams: 08/12/19 03:17 08/10/19 11:27 Additional Labs: Accuchecks 08/12/19 08/12/19 08/12/19 15:14 11:35 05:24 POC Glucose 185 H 148 H 96 08/11/19 20:17 POC Glucose 116 H Labs and MARs reviewed by ok Hospitalist ROS - Review of Systems Cardiovascular: denies: chest pain, palpitations, orthopnea, paroxysmal noc. dyspnea, edema, light headedness Gastrointestinal: denies: nausea, vomiting, abdominal pain, diarrhea, constipation, melena, hematochezia - Medication Medications: Active Medications Generic Name Dose Route Start Last Admin Trade Name Freq PRN Reason Stop Dose Admin Acetaminophen 650 mg 08/08/19 04:31 08/11/19 21:16 Tylenol PO 650 mg Q12H PRN Administration Headache/Fever or Pain-MILD Hydrocodone Bitart/Acetaminophen 1 tab 08/08/19 04:31 08/12/19 17:06 [place] 10/325 PO 1 tab Q4H PRN Administration Mild Pain (1-3) 2ND LINE Albuterol Sulfate 1 puff 08/07/19 19:00 08/12/19 14:06 Proventil Hfa INH 1 puff [id number] [facility] Administration Amitriptyline HCl 50 mg 10/15/19 21:00 08/11/19 21:16 Elavil PO 50 mg HS [facility] Administration Aspirin 81 mg 08/07/19 21:00 08/12/19 09:05 Ecotrin PO 81 mg BID [facility] Administration Bupropion HCl 450 mg 08/08/19 09:00 08/12/19 09:04 Wellbutrin Xl PO 450 mg DAILY [facility] Administration Diltiazem HCl 240 mg 08/07/19 21:00 08/11/19 21:16 Cardizem Cd PO 240 mg HS [facility] Administration Escitalopram Oxalate 20 mg 08/08/19 09:00 08/12/19 09:04 Lexapro PO 20 mg DAILY [facility] Administration Fentanyl 25 mcg 08/09/19 11:00 08/11/19 11:56 Duragesic TD 25 mcg Q2D [facility] Administration Gabapentin 400 mg 08/11/19 21:00 08/12/19 09:04 Neurontin PO 400 mg BID [facility] Administration Hydroxyzine HCl 25 mg 08/08/19 04:27 08/12/19 00:01 Vistaril IM 25 mg Q4H PRN Administration GIVE WITH DEMEROL Levothyroxine Sodium 125 mcg 08/08/19 06:00 08/12/19 05:18 Synthroid PO 125 mcg 0600 [facility] Administration Lisinopril 10 mg 08/07/19 21:00 08/12/19 09:04 Zestril PO 10 mg BID [facility] Administration Meperidine HCl 25 mg 08/07/19 17:23 08/10/19 18:36 Demerol IM 25 mg Q6H PRN Administration .SEVERE PAIN Meperidine HCl 50 mg 08/08/19 04:26 08/12/19 00:01 Demerol IM 50 mg Q4H PRN Administration Severe Pain (7-10) Metoprolol Tartrate 25 mg 08/08/19 09:00 08/12/19 09:04 Lopressor PO 25 mg DAILY [facility] Administration Morphine Sulfate 2 mg 08/07/19 17:30 08/08/19 15:19 Morphine IVP 2 mg Q2H PRN Administration Moderate Pain (4-6) Morphine Sulfate 4 mg 08/08/19 04:27 08/10/19 16:35 Morphine SLOW IVP 4 mg Q4H PRN Administration Severe Pain 7-10 BREAKTHROUGH Pantoprazole Sodium 40 mg 08/07/19 21:00 08/12/19 09:05 Protonix PO 40 mg BID [facility] Administration Quetiapine Fumarate 75 mg 08/07/19 21:00 08/11/19 21:17 Seroquel PO 75 mg HS [facility] Administration Saccharomyces Boulardii 250 mg 08/10/19 09:00 08/12/19 09:04 Florastor PO 250 mg DAILY [facility] Administration Tramadol HCl 50 mg 08/07/19 17:23 08/09/19 06:48 Ultram PO 50 mg Q6H PRN Administration Mild Pain (1-3) - Exam General Appearance: NAD Eye: anicteric sclera ENT: moist mucosa Neck: supple Heart: RRR Respiratory: CTAB, no rales Gastrointestinal: soft, non-tender Musculoskeletal: no muscle wasting Psychiatric: normal affect, normal behavior Hosp A/P (1) Sepsis Code(s): A41.9 - SEPSIS, UNSPECIFIED ORGANISM Status: Acute (2) Hematoma Code(s): T14.8XXA - OTHER INJURY OF UNSPECIFIED BODY REGION, INITIAL ENCOUNTER Status: Acute - Plan plan discussed w/ family, continue antibiotics, out of bed/ambulate Continue IV clindamycin, Cultures negative so far.
[2019-08-12] MEDS: Amitriptyline HCl 100 MG TAB PO SCH (20:08)
[2019-08-12] MEDS: Clindamycin 150 MG CAP PO SCH (23:19)
[2019-08-13] MEDS: Clindamycin 150 MG CAP PO SCH ×3 (05:56→21:18)
[2019-08-13] MEDS: Levothyroxine Sodium 125 MCG TAB PO SCH (05:56)
[2019-08-13] MEDS: Meperidine HCl/PF 25 MG/ML VIAL IM PRN (06:01)
[2019-08-13] MEDS: PROVENTIL INHALER 6.7 G (200 INHALATIONS) INH SCH ×4 (07:10→18:52)
[2019-08-13] MEDS: Aspirin 81 mg Enteric Coated Tablet PO SCH ×2 (09:23→20:26)
[2019-08-13] MEDS: Lisinopril 10 MG TAB PO SCH ×2 (09:23→20:26)
[2019-08-13] MEDS: Bupropion 150 MG XL TAB PO SCH (09:23)
[2019-08-13] MEDS: HYDROcodone/Acetaminophen 10/325 mg Tablet PO PRN ×2 (09:24→14:13)
[2019-08-13] MEDS: Saccharomyces boulardii 250 MG CAP PO SCH (09:24)
[2019-08-13] MEDS: Escitalopram Oxalate 20 mg Tablet PO SCH (09:24)
[2019-08-13] MEDS: Metoprolol Tartrate 25 MG TAB PO SCH (09:24)
[2019-08-13] MEDS: Gabapentin 400 MG CAP PO SCH ×2 (09:26→20:26)
--- NOTE | 2019-08-13 12:48 | OP ---
DATE OF PROCEDURE: 08/10/2019 PREOPERATIVE DIAGNOSIS: Left wrist open wound, and index finger open wound, dorsal aspect 14 cm. POSTOPERATIVE DIAGNOSIS: Left wrist open wound, and index finger open wound, dorsal aspect 14 cm. FINDINGS: No gross infection necrosis. PROCEDURES PERFORMED: 1. Debridement of wound intermediate depth [id number] down to, but not including the joint. 2. Closure of wound, 14 cm in multiple layers. This procedure followed open treatment of pelvis fractures, wound debridement, and closure with Dr. Chance during the same anesthetic episode. BLOOD LOSS: From the wrist was less than 5.0 mL. COMPLICATIONS: None. TOURNIQUET TIME: None. INDICATION: The patient after being septic in the evening 24 hours after surgery where she had a lactate of 8.0. She had fevers at 102.6, she is tachycardic, diaphoretic, and becoming lethargic. She had emergency surgery based on lack of available operative time in the afternoon. The surgery started late in the day and proceeded to the morning of next day. She slowly became stable, she did however have to have transfusion for blood loss as hematoma was found. She had a CT scan, which showed that her pelvic bone graft site had a fracture propagating both proximally and distally with displacement of anterior superior iliac spine. We have consulted Dr. Chance and he agreed to proceed and fixation might be indicated. We coordinated the schedules and we were able to achieve operative time simultaneous with both of us the morning of the date of surgery, August 10. DESCRIPTION OF PROCEDURE: After successful general endotracheal anesthesia, the patient's limb was prepped and draped. Following Dr. Chance' surgery to include ORIF of the iliac wing, wound debridement, and closure over drain, we began this procedure. The patient had time-out done with the pelvic time-out. We elevated the skin edges, debrided some denuded fat, found no necrosis. There was no necrosis around the tendon sheath and repair of the extensor indicis proprius and transfer of the extensor indicis proprius to the extensor pollicis longus were still intact with excellent thumb position. We then irrigated 1 L, closed the incision in 2 layers with a running 3-0 Monocryl subcutaneous and 4-0 nylon in the skin. After closure of the wound with epidermal layer with a 4-0 nylon interrupted mattress pattern, we then placed a bacitracin, Adaptic, 4x4s, and Kerlix, protecting the thumb as well and placed a sugar-tong splint with the thumb spica portion around the thumb to the nail bed. She had excellent circulation. She left the operating room without evidence of anesthetic or operative complication. Job ID: [id number]
--- NOTE | 2019-08-13 18:41 | PDOC.HOSPP ---
- Subjective Encounter Date: 08/13/19 Encounter Time: 09:40 Subjective: Pt seen for followup re: sepsis. Feels better. - Objective Vital Signs & Weight: Vital Signs (12 hours) Temp Pulse Resp BP Pulse Ox 08/13/19 15:28 98.1 F 76 18 122/59 L 94 L 08/13/19 12:15 98.2 F 84 17 145/82 H 93 L 08/13/19 08:00 97.9 F 98 16 148/89 H 93 L 08/13/19 07:10 76 16 95 Weight Weight 169 lb 15.622 oz Most Recent Monitor Data Heart Rate from ECG 94 NIBP 127/67 NIBP BP-Mean 87 Respiration from ECG 12 SpO2 98 I&O: 08/12/19 08/13/19 08/14/19 06:59 06:59 06:59 Intake Total 1994 2349 Output Total 4868 0904 Balance -7781 -6360 Result Diagrams: 08/12/19 03:17 08/10/19 11:27 Additional Labs: Accuchecks 08/13/19 08/13/19 08/13/19 16:03 11:32 05:58 POC Glucose 126 H 149 H 84 08/12/19 20:05 POC Glucose 102 Labs and MARs reviewed by ks Hospitalist ROS - Review of Systems Cardiovascular: denies: chest pain, palpitations, orthopnea, paroxysmal noc. dyspnea, edema, light headedness Gastrointestinal: denies: nausea, vomiting, abdominal pain, diarrhea, constipation, melena, hematochezia - Medication Medications: Active Medications Generic Name Dose Route Start Last Admin Trade Name Freq PRN Reason Stop Dose Admin Acetaminophen 650 mg 08/08/19 04:31 08/11/19 21:16 Tylenol PO 650 mg Q12H PRN Administration Headache/Fever or Pain-MILD Hydrocodone Bitart/Acetaminophen 1 tab 08/08/19 04:31 08/13/19 14:13 [place] 10/325 PO 1 tab Q4H PRN Administration Mild Pain (1-3) 2ND LINE Albuterol Sulfate 1 puff 08/07/19 19:00 08/13/19 14:37 Proventil Hfa INH 1 puff [id number] [facility] Administration Amitriptyline HCl 50 mg 08/07/19 21:00 08/12/19 20:08 Elavil PO 50 mg HS [facility] Administration Aspirin 81 mg 08/07/19 21:00 08/13/19 09:23 Ecotrin PO 81 mg BID [facility] Administration Bupropion HCl 450 mg 08/08/19 09:00 08/13/19 09:23 Wellbutrin Xl PO 450 mg DAILY [facility] Administration Clindamycin HCl 450 mg 08/12/19 22:00 08/13/19 14:13 Cleocin PO 450 mg Q8HR [facility] Administration Diltiazem HCl 240 mg 08/07/19 21:00 08/12/19 20:09 Cardizem Cd PO 240 mg HS [facility] Administration Escitalopram Oxalate 20 mg 08/08/19 09:00 08/13/19 09:24 Lexapro PO 20 mg DAILY [facility] Administration Fentanyl 25 mcg 08/09/19 11:00 08/13/19 12:09 Duragesic TD 25 mcg Q2D [facility] Administration Gabapentin 400 mg 08/11/19 21:00 08/13/19 09:26 Neurontin PO 400 mg BID [facility] Administration Hydroxyzine HCl 25 mg 08/08/19 04:27 08/12/19 00:01 Vistaril IM 25 mg Q4H PRN Administration GIVE WITH DEMEROL Levothyroxine Sodium 125 mcg 08/08/19 06:00 08/13/19 05:56 Synthroid PO 125 mcg 0600 [facility] Administration Lisinopril 10 mg 08/07/19 21:00 08/13/19 09:23 Zestril PO 10 mg BID [facility] Administration Meperidine HCl 25 mg 08/07/19 17:23 08/13/19 06:01 Demerol IM 25 mg Q6H PRN Administration .SEVERE PAIN Meperidine HCl 50 mg 08/08/19 04:26 08/12/19 20:20 Demerol IM 50 mg Q4H PRN Administration Severe Pain (7-10) Metoprolol Tartrate 25 mg 08/08/19 09:00 08/13/19 09:24 Lopressor PO 25 mg DAILY [facility] Administration Morphine Sulfate 2 mg 08/07/19 17:30 08/08/19 15:19 Morphine IVP 2 mg Q2H PRN Administration Moderate Pain (4-6) Morphine Sulfate 4 mg 08/08/19 04:27 08/10/19 16:35 Morphine SLOW IVP 4 mg Q4H PRN Administration Severe Pain 7-10 BREAKTHROUGH Pantoprazole Sodium 40 mg 08/07/19 21:00 08/13/19 09:26 Protonix PO 40 mg BID [facility] Administration Quetiapine Fumarate 75 mg 08/07/19 21:00 08/12/19 20:09 Seroquel PO 75 mg HS [facility] Administration Saccharomyces Boulardii 250 mg 08/10/19 09:00 08/13/19 09:24 Florastor PO 250 mg DAILY [facility] Administration Tramadol HCl 50 mg 08/07/19 17:23 08/09/19 06:48 Ultram PO 50 mg Q6H PRN Administration Mild Pain (1-3) - Exam General Appearance: NAD Eye: anicteric sclera ENT: moist mucosa Neck: supple Heart: RRR Respiratory: CTAB Gastrointestinal: soft, non-tender Extremities - other findings: LUE dressing Musculoskeletal: no muscle wasting Psychiatric: normal affect, normal behavior Hosp A/P (1) Sepsis Code(s): A41.9 - SEPSIS, UNSPECIFIED ORGANISM Status: Acute (2) Hematoma Code(s): T14.8XXA - OTHER INJURY OF UNSPECIFIED BODY REGION, INITIAL ENCOUNTER Status: Acute - Plan continue antibiotics, out of bed/ambulate Continue clindamycin, All cultures negative so far. Awaiting SNU.
[2019-08-13] MEDS: Amitriptyline HCl 100 MG TAB PO SCH (20:26)
[2019-08-14] MEDS: Clindamycin 150 MG CAP PO SCH ×3 (05:32→21:29)
[2019-08-14] MEDS: Levothyroxine Sodium 125 MCG TAB PO SCH (05:32)
[2019-08-14] MEDS: PROVENTIL INHALER 6.7 G (200 INHALATIONS) INH SCH ×4 (07:33→18:22)
[2019-08-14] MEDS: Bupropion 150 MG XL TAB PO SCH (08:25)
[2019-08-14] MEDS: Gabapentin 400 MG CAP PO SCH ×2 (08:25→21:20)
[2019-08-14] MEDS: Saccharomyces boulardii 250 MG CAP PO SCH (08:25)
[2019-08-14] MEDS: Metoprolol Tartrate 25 MG TAB PO SCH (08:25)
[2019-08-14] MEDS: Escitalopram Oxalate 20 mg Tablet PO SCH (08:25)
[2019-08-14] MEDS: Aspirin 81 mg Enteric Coated Tablet PO SCH ×2 (08:25→21:21)
[2019-08-14] MEDS: Lisinopril 10 MG TAB PO SCH ×2 (08:26→21:20)
[2019-08-14] MEDS: HYDROcodone/Acetaminophen 10/325 mg Tablet PO PRN ×2 (08:31→21:19)
--- NOTE | 2019-08-14 14:20 | PDOC.HOSPP ---
- Subjective Encounter Date: 08/14/19 Encounter Time: 09:00 Subjective: Pt seen for followup re: sepsis. Feels well, no complaints. - Objective Vital Signs & Weight: Vital Signs (12 hours) Temp Pulse Resp BP BP Pulse Ox 08/14/19 11:28 97.9 F 86 12 108/68 95 08/14/19 08:28 95 08/14/19 08:26 132/69 08/14/19 08:00 98.3 F 95 16 132/69 95 08/14/19 04:05 98.3 F 98 16 116/63 94 L Weight Weight 169 lb 15.622 oz Most Recent Monitor Data Heart Rate from ECG 94 NIBP 127/67 NIBP BP-Mean 87 Respiration from ECG 12 SpO2 98 I&O: 08/13/19 08/14/19 08/15/19 06:59 06:59 06:59 Intake Total 2350 2300 240 Output Total 3735 3570 1000 Balance -1385 -1270 -760 Result Diagrams: 08/12/19 03:17 08/10/19 11:27 Additional Labs: Accuchecks 08/14/19 08/14/19 08/13/19 11:40 05:14 20:37 POC Glucose 96 81 165 H 08/13/19 16:03 POC Glucose 126 H Labs and MARs reviewed by fl Hospitalist ROS - Review of Systems Cardiovascular: denies: chest pain, palpitations, orthopnea, paroxysmal noc. dyspnea, edema, light headedness Genitourinary: denies: dysuria, frequency, incontinence, hematuria, retention - Medication Medications: Active Medications Generic Name Dose Route Start Last Admin Trade Name Aceq PRN Reason Stop Dose Admin Acetaminophen 650 mg 08/08/19 04:31 08/11/19 21:16 Tylenol PO 650 mg Q12H PRN Administration Headache/Fever or Pain-MILD Hydrocodone Bitart/Acetaminophen 1 tab 08/08/19 04:31 08/14/19 08:31 [place] 10/325 PO 1 tab Q4H PRN Administration Mild Pain (1-3) 2ND LINE Albuterol Sulfate 1 puff 08/07/19 19:00 08/14/19 14:10 Proventil Hfa INH 1 puff [id number] [facility] Administration Amitriptyline HCl 50 mg 08/07/19 21:00 08/13/19 20:26 Elavil PO 50 mg HS SANTA Administration Aspirin 81 mg 08/07/19 21:00 08/14/19 08:25 Ecotrin PO 81 mg BID S[place] Administration Bupropion HCl 450 mg 08/08/19 09:00 08/14/19 08:25 Wellbutrin Xl PO 450 mg DAILY SANTA Administration Clindamycin HCl 450 mg 08/12/19 22:00 08/14/19 13:16 Cleocin PO 450 mg Q8HR S[place]A Administration Diltiazem HCl 240 mg 08/07/19 21:00 08/13/19 20:26 Cardizem Cd PO 240 mg HS SANTA Administration Escitalopram Oxalate 20 mg 08/08/19 09:00 08/14/19 08:25 Lexapro PO 20 mg DAILY SANTA Administration Fentanyl 25 mcg 08/09/19 11:00 08/13/19 12:09 Duragesic TD 25 mcg Q2D S[facility]A Administration Gabapentin 400 mg 08/11/19 21:00 08/14/19 08:25 Neurontin PO 400 mg BID SANTA Administration Hydroxyzine HCl 25 mg 08/08/19 04:27 08/12/19 00:01 Vistaril IM 25 mg Q4H PRN Administration GIVE WITH DEMEROL Levothyroxine Sodium 125 mcg 08/08/19 06:00 08/14/19 05:32 Synthroid PO 125 mcg 0600 SANTA Administration Lisinopril 10 mg 08/07/19 21:00 08/14/19 08:26 Zestril PO 10 mg BID S[place] Administration Meperidine HCl 25 mg 08/07/19 17:23 08/13/19 06:01 Demerol IM 25 mg Q6H PRN Administration .SEVERE PAIN Meperidine HCl 50 mg 08/08/19 04:26 08/13/19 20:23 Demerol IM 50 mg Q4H PRN Administration Severe Pain (7-10) Metoprolol Tartrate 25 mg 08/08/19 09:00 08/14/19 08:25 Lopressor PO 25 mg DAILY SANTA Administration Morphine Sulfate 2 mg 08/07/19 17:30 08/08/19 15:19 Morphine IVP 2 mg Q2H PRN Administration Moderate Pain (4-6) Morphine Sulfate 4 mg 08/08/19 04:27 08/10/19 16:35 Morphine SLOW IVP 4 mg Q4H PRN Administration Severe Pain 7-10 BREAKTHROUGH Pantoprazole Sodium 40 mg 08/07/19 21:00 08/14/19 08:25 Protonix PO 40 mg BID S[place]A Administration Quetiapine Fumarate 75 mg 08/07/19 21:00 08/13/19 20:25 Seroquel PO 75 mg HS SANTA Administration Saccharomyces Boulardii 250 mg 08/10/19 09:00 08/14/19 08:25 Florastor PO 250 mg DAILY SANTA Administration Tramadol HCl 50 mg 08/07/19 17:23 08/09/19 06:48 Ultram PO 50 mg Q6H PRN Administration Mild Pain (1-3) - Exam General Appearance: NAD Eye: anicteric sclera ENT: moist mucosa Neck: supple Heart: RRR Respiratory: CTAB, no rales Gastrointestinal: soft Psychiatric: normal affect, normal behavior Hosp A/P (1) Sepsis Code(s): A41.9 - SEPSIS, UNSPECIFIED ORGANISM Status: Acute (2) Hematoma Code(s): T14.8XXA - OTHER INJURY OF UNSPECIFIED BODY REGION, INITIAL ENCOUNTER Status: Acute - Plan Continue clindamycin, Awaiting SNU bed.
[2019-08-14] MEDS: Amitriptyline HCl 100 MG TAB PO SCH (21:22)
[2019-08-15] MEDS: Levothyroxine Sodium 125 MCG TAB PO SCH (05:06)
[2019-08-15] MEDS: Clindamycin 150 MG CAP PO SCH ×3 (05:06→20:51)
[2019-08-15] MEDS: PROVENTIL INHALER 6.7 G (200 INHALATIONS) INH SCH ×4 (07:04→19:04)
[2019-08-15] MEDS: Gabapentin 400 MG CAP PO SCH ×2 (09:00→20:51)
[2019-08-15] MEDS: Saccharomyces boulardii 250 MG CAP PO SCH (09:00)
[2019-08-15] MEDS: Bupropion 150 MG XL TAB PO SCH (09:00)
[2019-08-15] MEDS: Metoprolol Tartrate 25 MG TAB PO SCH (09:00)
[2019-08-15] MEDS: Lisinopril 10 MG TAB PO SCH ×2 (09:01→20:51)
[2019-08-15] MEDS: Aspirin 81 mg Enteric Coated Tablet PO SCH ×2 (09:01→20:51)
[2019-08-15] MEDS: Escitalopram Oxalate 20 mg Tablet PO SCH (09:01)
[2019-08-15] MEDS: HYDROcodone/Acetaminophen 10/325 mg Tablet PO PRN ×2 (12:14→20:50)
--- NOTE | 2019-08-15 18:46 | PDOC.HOSPP ---
- Subjective Encounter Date: 08/15/19 Encounter Time: 09:00 Subjective: Pt seen for followup re: sepsis. No complaints today. - Objective Vital Signs & Weight: Vital Signs (12 hours) Temp Pulse Resp BP BP Pulse Ox 08/15/19 16:23 99.1 F 84 18 135/79 94 L 08/15/19 12:20 99.6 F 84 18 144/79 H 94 L 08/15/19 09:01 142/80 H 94 L 08/15/19 07:12 98.3 F 84 16 142/80 H 94 L Weight Weight 169 lb 15.622 oz Most Recent Monitor Data Heart Rate from ECG 94 NIBP 127/67 NIBP BP-Mean 87 Respiration from ECG 12 SpO2 98 I&O: 08/14/19 08/15/19 08/16/19 06:59 06:59 06:59 Intake Total 2300 1080 1750 Output Total 3570 4350 1825 Balance -1270 -3270 -75 Result Diagrams: 08/12/19 03:17 08/10/19 11:27 Additional Labs: Accuchecks 08/15/19 08/15/19 08/15/19 15:44 11:01 05:12 POC Glucose 119 H 133 H 110 08/14/19 21:23 POC Glucose 119 H Labs and MARs reviewed by mo Hospitalist ROS - Review of Systems Constitutional: denies: fever, chills, sweats, weakness, malaise Genitourinary: denies: dysuria, frequency, incontinence, hematuria, retention - Medication Medications: Active Medications Generic Name Dose Route Start Last Admin Trade Name Aceq PRN Reason Stop Dose Admin Acetaminophen 650 mg 08/08/19 04:31 08/11/19 21:16 Tylenol PO 650 mg Q12H PRN Administration Headache/Fever or Pain-MILD Hydrocodone Bitart/Acetaminophen 1 tab 08/08/19 04:31 08/15/19 12:14 [place] 10/325 PO 1 tab Q4H PRN Administration Mild Pain (1-3) 2ND LINE Albuterol Sulfate 1 puff 08/07/19 19:00 08/15/19 14:56 Proventil Hfa INH 1 puff [id number] [facility] Administration Amitriptyline HCl 50 mg 08/07/19 21:00 08/14/19 21:22 Elavil PO 50 mg HS SANTA Administration Aspirin 81 mg 08/07/19 21:00 08/15/19 09:01 Ecotrin PO 81 mg BID [facility] Administration Bupropion HCl 450 mg 08/08/19 09:00 08/15/19 09:00 Wellbutrin Xl PO 450 mg DAILY SANTA Administration Clindamycin HCl 450 mg 08/12/19 22:00 08/15/19 15:00 Cleocin PO 450 mg Q8HR [place] Administration Diltiazem HCl 240 mg 08/07/19 21:00 08/14/19 21:20 Cardizem Cd PO 240 mg HS SANTA Administration Escitalopram Oxalate 20 mg 08/08/19 09:00 08/15/19 09:01 Lexapro PO 20 mg DAILY SANTA Administration Fentanyl 25 mcg 08/09/19 11:00 08/15/19 12:19 Duragesic TD 25 mcg Q2D S[facility] Administration Gabapentin 400 mg 08/11/19 21:00 08/15/19 09:00 Neurontin PO 400 mg BID S[place] Administration Hydroxyzine HCl 25 mg 08/08/19 04:27 08/12/19 00:01 Vistaril IM 25 mg Q4H PRN Administration GIVE WITH DEMEROL Levothyroxine Sodium 125 mcg 08/08/19 06:00 08/15/19 05:06 Synthroid PO 125 mcg 0600 SANTA Administration Lisinopril 10 mg 08/07/19 21:00 08/15/19 09:01 Zestril PO 10 mg BID S[place] Administration Meperidine HCl 25 mg 08/07/19 17:23 08/13/19 06:01 Demerol IM 25 mg Q6H PRN Administration .SEVERE PAIN Meperidine HCl 50 mg 08/08/19 04:26 08/13/19 20:23 Demerol IM 50 mg Q4H PRN Administration Severe Pain (7-10) Metoprolol Tartrate 25 mg 08/08/19 09:00 08/15/19 09:00 Lopressor PO 25 mg DAILY SANTA Administration Morphine Sulfate 2 mg 08/07/19 17:30 08/08/19 15:19 Morphine IVP 2 mg Q2H PRN Administration Moderate Pain (4-6) Morphine Sulfate 4 mg 08/08/19 04:27 08/10/19 16:35 Morphine SLOW IVP 4 mg Q4H PRN Administration Severe Pain 7-10 BREAKTHROUGH Pantoprazole Sodium 40 mg 08/07/19 21:00 08/15/19 09:01 Protonix PO 40 mg BID S[place] Administration Quetiapine Fumarate 75 mg 08/07/19 21:00 08/14/19 21:20 Seroquel PO 75 mg HS SANTA Administration Saccharomyces Boulardii 250 mg 08/10/19 09:00 08/15/19 09:00 Florastor PO 250 mg DAILY SANTA Administration Tramadol HCl 50 mg 08/07/19 17:23 08/09/19 06:48 Ultram PO 50 mg Q6H PRN Administration Mild Pain (1-3) - Exam General Appearance: NAD Eye: anicteric sclera ENT: moist mucosa Neck: supple Heart: RRR, no rubs Respiratory: CTAB, no wheezes Gastrointestinal: soft, non-tender Psychiatric: normal affect, normal behavior Hosp A/P (1) Sepsis Code(s): A41.9 - SEPSIS, UNSPECIFIED ORGANISM Status: Acute (2) Hematoma Code(s): T14.8XXA - OTHER INJURY OF UNSPECIFIED BODY REGION, INITIAL ENCOUNTER Status: Acute - Plan plan discussed w/ family, out of bed/ambulate Continue clindamycin, Awaiting SNU bed. Declined by Vijay Campa. s/p hand and pelvic surgery.
[2019-08-15] MEDS: Amitriptyline HCl 100 MG TAB PO SCH (20:51)
[2019-08-16] MEDS: traMADol HCl 50 MG TAB PO PRN ×3 (00:45→14:02)
[2019-08-16] MEDS: HYDROcodone/Acetaminophen 10/325 mg Tablet PO PRN ×3 (00:45→19:00)
[2019-08-16] MEDS: Clindamycin 150 MG CAP PO SCH ×3 (05:24→20:17)
[2019-08-16] MEDS: Levothyroxine Sodium 125 MCG TAB PO SCH (05:24)
[2019-08-16] MEDS: PROVENTIL INHALER 6.7 G (200 INHALATIONS) INH SCH ×4 (07:33→19:20)
[2019-08-16] MEDS: Bupropion 150 MG XL TAB PO SCH (09:31)
[2019-08-16] MEDS: Aspirin 81 mg Enteric Coated Tablet PO SCH ×2 (09:31→20:16)
[2019-08-16] MEDS: Gabapentin 400 MG CAP PO SCH ×2 (09:32→20:16)
[2019-08-16] MEDS: Metoprolol Tartrate 25 MG TAB PO SCH (09:32)
[2019-08-16] MEDS: Saccharomyces boulardii 250 MG CAP PO SCH (09:32)
[2019-08-16] MEDS: Lisinopril 10 MG TAB PO SCH ×2 (09:32→20:17)
[2019-08-16] MEDS: Escitalopram Oxalate 20 mg Tablet PO SCH (09:32)
--- NOTE | 2019-08-16 12:25 | OP ---
DATE OF PROCEDURE: 08/06/2019 PREOPERATIVE DIAGNOSES: 1. Left triangular fibrocartilage tear. 2. Left lunate chondromalacia with synovitis. 3. 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 4. 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 POSTOPERATIVE DIAGNOSES: 1. Left triangular fibrocartilage tear. 2. Left lunate chondromalacia with synovitis. 3. 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 4. 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 PROCEDURES PERFORMED: 1. Left wrist arthroscopic synovectomy. 2. Left arthroscopic chondroplasty with triangular fibrocartilage central tear debridement. 3. C-arm supervision. 4. Left radius malunion open treatment and internal fixation with pelvic bone graft from the iliac crest major bone graft (Kevin Loyola type procedure) and extensor indicis proprius to extensor pollicis longus transfer. ESTIMATED BLOOD LOSS: 200 mL. COMPLICATIONS: None at the time of surgery. INDICATIONS: The patient had a distal radius fracture and progressively noticed poor extension of the thumb, only complaining about it at the time of preop. She also had the radiographic findings and clinical limitations associated with a very serious malunion of the radius shortening greater than angulation in sagittal plane. For this reason, operative intervention was indicated. DESCRIPTION OF PROCEDURE: After successful endotracheal anesthesia, the limb was prepped and draped. She had time-out done and appropriately identified the left side as the correct side and the left side was placed in axial traction with a standard wrist arthroscopy tower. We then outlined the 3/4, 6U, and 6R portals to perform panoramic view of the wrist. Initially, we saw a marked synovitis, so we had to perform arthroscopic synovectomy for visualization. There was a very prominent ulnar prominence underneath a 4 mm triangular fibrocartilage tear that was slightly more radial than central and was located on the radial one-third of the ulna where it was most indenting to triangular fibrocartilage. There was only minimum fraying of the lunate grade 2 chondromalacia, none of the triquetrum with the lunotriquetral ligament intact as was scapholunate ligament. We performed arthroscopic debridement with alternating visualization and working for an operative working portals from the 6U, 6R and 3/4 portals. Once we had done this, we realized that we would have to level the wrist joint in order to complete this procedure. Because her primary problem was such a large difference, and because of the fact that she had two-plane deformity of radius, we felt that ulnar shortening alone would not balance her enough, so we decided to elevate the radius before joint leveling. We then removed the wrist tower, closed the arthroscopic ulnar portal, and then exsanguinated the limb and inflated the tourniquet to 250 mmHg pressure. We had also prepped and draped the iliac crest, anterior approach. We made a zigzag incision, carried through the skin and subcutaneous tissue and in the process of releasing the retinaculum, we discovered that there was a large pseudotendon over approximately 5 cm long over the extensor pollicis longus, so it was clear that it was not adequately resected. We then made an extra-articular incision inline retracting the remnant of the extensor pollicis longus radially and the fourth dorsal compartment contents ulnarly. We resected posterior osseous nerve. We then flattened out this tubercle, and exposed complete distal 3rd radius. Using radiographs, we placed K-wire parallel to the articular surface and one parallel to the shaft or 5 cm proximal. We then outlined a spot 1 cm proximal to the articular surface for osteotomy with K-wires, and then made our cut, ensuring we left 1 mm of volar wall which we then released under osteotomy cut. The transverse cut was parallel to the expected radiocarpal alignment and then we were able to elevate and separate it. We then corrected the angulation using the K-wires as guidance, used a lamina muffler installer, mini type, to reapproximate the amount of elevation to be needed and it was almost 10 mm dorsally and approximately 5 mm palmarly to achieve a 5-degree apex dorsal or palmar tilt and a 1 mm radial positive wrist. We placed a bulky dressing here, and turned attention to the pelvis. Here, we made an anterior incision approximately 1 cm off the lateral wall, dissected down to the fascia and opened the fascia over the wall, carried this down to expose the inner and outer table of the pelvis. We had measured approximately 2 cm wide by 1 cm thick by 15 mm deep piece of the pelvis and we took this out using a saw protecting the inner and outer table contents. Once we had done this and we placed thrombin-soaked Gelfoam here, obtained hemostasis, and covered it with 2 moistened lap sponges. Turned attention back to the wrist. Now, we then shaped the bone using a combination of rongeur, bone cutter and the saw to fit in the central portion. It was now 1 cm at its dorsal aspect and down to 5 mm in deep palmar and we chiseled this in gently with a hammer. We then augmented it on 5 mm on either side with remaining cortical cancellous bone graft at the central cortical cancellous piece was then K-wired into position. We had a 5-degree tilt and 1 mm positive radial wrist with appropriate frontal plane radial articular inclination. The distal radioulnar joint was approximately 1 mm wide and appropriate rotation could be seen. We then placed a combination of dorsal plates, the 1st one was a J shaped/hockey shaped on the radial 1/3 of both the proximal fragment and the articular surface. Then, we placed a straight plate on the ulnar aspect. Once we had placed 2.4 screws distally to the osteotomy and 2.7 screws proximally, removed the K-wires and we had achieved a very good alignment radiographically. We released the tourniquet, we rotated the wrist, 2 screws had to be replaced for length because it was slightly short, this was done. We then rotated the wrist and could achieve easily 80 degrees supination, pronation without any clinical catching. At this point, we obtained hemostasis over the distal radius incisions, closed the extra-articular incision with 2-0 Vicryl to reapproximate the retinaculum, then we finished resecting the pseudocyst. We made an extra 2.5 cm incision over the metacarpophalangeal joint, harvested the extensor indicis proprius with at least a 5-to 6-mm retinacular portion, closed this retinaculum with interrupted 4-0 Prolene buried [id number]. We then slowly freed the tendon and brought it back proximal to the retinaculum and then placed on top of the retinaculum. At this point, we identified the primary pitka's point tendon over the snuffbox, and from here, lifted up the skin and performed a Pulvertaft weave, secured in standard fashion with 4-0 Prolene x2 with each weave under appropriate tension with the thumb in abducted from the flat plane of the table and the thumb interphalangeal joint hyperextended. After we had tied this, we remained the added tension to show intact graft. We then were able to close the skin in 2 layers, running 4-0 Monocryl deep dermal layer and epidermis with 4-0 nylon interrupted mattress pattern. We turned attention to the pelvis. Here, we obtained hemostasis in excellent fashion, we watched for 5 minutes and cauterized the bleeder, and then placed 2 more thrombin with Gelfoam in the bone graft site anticipating bleeding from here along with a Hemovac drain, brought out through a separate stab wound through the fascia. We closed the fascia with a running #1 Vicryl, closed the subcutaneous tissue with the deep dermal layer with a running 3-0 Monocryl. The skin was reapproximated with christ. We placed 4x4s over bacitracin and Adaptic along with a bulky hand dressing and sugar-tong splint on the wrist and we placed Adaptic and bacitracin with 4x4s and an ABD along with Tegaderm on the ipsilateral hemipelvis. The patient left the operating room without evidence of anesthetic or operative complication. Job ID: [id number]
--- NOTE | 2019-08-16 14:54 | DIS ---
DATE OF ADMISSION: 08/06/2019 DATE OF DISCHARGE: 08/15/2019 ADMISSION DIAGNOSES: 1. Triangular fibrocartilage tear. 2. Wrist synovitis. 3. 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 4. Severe shortening radial fracture malunion with also [id number] sagittal plane abnormal tilt from distal radius fracture that healed with tremendous shortening over 6 mm distal radius. DISCHARGE DIAGNOSES: 1. Triangular fibrocartilage tear. 2. Wrist synovitis. 3. 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 4. Postoperative hematoma, left pelvis. 5. Postoperative bone grafting of fracture propagated both proximal and distal to the anterior and posterior compression of the pelvic rim after bone grafting. PROCEDURES: 1. On date of admission, Kevin Loyola type bone grafting for joint leveling. 2. Arthroscopic synovectomy. 3. Arthroscopic triangular fibrocartilage tear resection with iliac crest bone graft harvested from the ipsilateral crest. 4. Postoperative day #1 from initial surgery, debridement, irrigation of both the wrist and the pelvic wound. 5. Evacuation of pelvic hematoma with multiple cultures. 6. Ligation of arterial bleed of the wall of pelvis and full recognition of fracture propagation from the initial bone graft site. 7. On July 2019, left upper extremity wound debridement and closure primarily. 8. Debridement of left hemipelvis wound. 9. Open reduction internal fixation of pelvic rim fracture performed by Dr. Chance. 10. Closure of wound, left hemipelvis over drain. HOSPITAL COURSE: The patient was admitted and immediately date of admission underwent the Kevin Loyola grafting after arthroscopic TFCC and synovectomy procedures. Initial 6 hour course was uncomplicated and then the next day, she began to develop tachycardia. She had initial early anemia and by 1700 hours the 2nd [place] [id number], was mildly anemic, had fevers of 102.6, sweats, diaphoresis and lightheadedness, so we felt she might be early septic and that some collection of blood might be seen at either wrist and hemipelvis on the left, so she underwent emergent evacuation of hematoma and was found to have almost 150 mL of blood and hematoma in pelvis, after complaining of a pop that night when arising from bed after lying on the left side, we found the fracture described above. She underwent evaluation of hematoma, irrigation and debridement all wounds, but primarily appeared to be the pelvic wound as the culprit and was dressed open with VAC dressings over a spencer sponge over white sponge, because of deep tendon involvement at both the left hemipelvis and the left wrist. She had a lactate of 8 postop after the 2nd surgery and was placed in the ICU environment. She was resuscitated, placed on appropriate medicines and consultation with the account analyst service and by postop day #3 (hospital day #4), the patient had developed a normal white blood cell count. Hospital day #5; however, the patient became somewhat anemic without elevation of white blood cell count and change in vital signs required or transfusion, given a total of 3 units of blood in the hospital. When radiographs showed that the pelvic fracture complaint and bleeding, we consulted Dr. Chance from Orthopedic surgery, [facility] who believed the patient would benefit, the same time with me debridement and probable open reduction internal fixation. For this reason on 20th, now 6 days after the 1st surgery, where she had negative cultures. No fevers, chills, diaphoresis, tachycardia, or any systemic, clinical or lab symptoms of active infection. She underwent last her transfusion of blood preop and then had the wounds irrigated and prepared for closure and Dr. Chance was in the room to perform the ORIF of her pelvis using long screws. No plate hardware was placed. The patient then had all wounds closed with this last surgery. She went to the floor and all cultures were negative and because of her extensive surgery history and the need to ambulate better, knows that she can only go about 10 feet without having to sit down, we suggest she be treated in a rehab unit because now she has left hemipelvis iliac wing fractures, previous hematoma and she had the wrist surgery. Please also note the patient had extensor pollicis longus tendon transfer from the EIP to the extensor pollicis longus with the 1st surgery. DISCHARGE PLAN: I believe the patient has diagnosis as above and should now undergo intense rehabilitation for at least 7-10 days to allow her to be able to ambulate fully. We attempted to do this for the 1st three days a week and have been unsuccessful and we are teaching her ambulation with the therapist here in the hospital. The patient would greatly benefit from mobilization and possible. She will follow up in our clinic in 1 week after discharge for dressing change and on the morning of she underwent a dressing change in both the left iliac wing procedure as well as the pelvic procedure. Job ID: [id number]
--- NOTE | 2019-08-16 17:46 | PDOC.HOSPP ---
- Subjective Encounter Date: 08/16/19 Encounter Time: 08:40 Subjective: Pt seen for followup re: sepsis. No complaints. - Objective Vital Signs & Weight: Vital Signs (12 hours) Temp Pulse Resp BP BP Pulse Ox 08/16/19 16:40 98.6 F 82 14 134/70 95 08/16/19 12:39 98.1 F 82 14 138/79 95 08/16/19 09:32 124/75 08/16/19 08:10 93 L 08/16/19 07:10 97.7 F 86 16 124/75 93 L Weight Admit Weight 169 lb 14.4 oz Weight 169 lb 14.4 oz Most Recent Monitor Data Heart Rate from ECG 94 NIBP 127/67 NIBP BP-Mean 87 Respiration from ECG 12 SpO2 98 I&O: 08/15/19 08/16/19 08/17/19 06:59 06:59 06:59 Intake Total 1080 2250 240 Output Total 4350 2225 575 Balance -3270 25 -335 Result Diagrams: 08/12/19 03:17 08/10/19 11:27 Additional Labs: Accuchecks 08/16/19 08/16/19 08/15/19 11:12 05:34 20:53 POC Glucose 113 H 102 113 H Labs and MARs reviewed by or Hospitalist ROS - Review of Systems Cardiovascular: denies: chest pain, palpitations, orthopnea, paroxysmal noc. dyspnea, edema, light headedness Skin: denies: rash, lesions, camille, bruising - Medication Medications: Active Medications Generic Name Dose Route Start Last Admin Trade Name Freq PRN Reason Stop Dose Admin Acetaminophen 650 mg 08/08/19 04:31 08/11/19 21:16 Tylenol PO 650 mg Q12H PRN Administration Headache/Fever or Pain-MILD Hydrocodone Bitart/Acetaminophen 1 tab 08/08/19 04:31 08/16/19 09:33 [place] 10/325 PO 1 tab Q4H PRN Administration Mild Pain (1-3) 2ND LINE Albuterol Sulfate 1 puff 08/07/19 19:00 08/16/19 13:36 Proventil Hfa INH 1 puff [id number] [facility] Administration Amitriptyline HCl 50 mg 08/07/19 21:00 08/15/19 20:51 Elavil PO 50 mg HS SANTA Administration Aspirin 81 mg 10/15/19 21:00 08/16/19 09:31 Ecotrin PO 81 mg BID SANTA Administration Bupropion HCl 450 mg 08/08/19 09:00 08/16/19 09:31 Wellbutrin Xl PO 450 mg DAILY SANTA Administration Clindamycin HCl 450 mg 08/12/19 22:00 08/16/19 13:55 Cleocin PO 450 mg Q8HR SANTA Administration Diltiazem HCl 240 mg 08/07/19 21:00 08/15/19 20:51 Cardizem Cd PO 240 mg HS SANTA Administration Escitalopram Oxalate 20 mg 08/08/19 09:00 08/16/19 09:32 Lexapro PO 20 mg DAILY SANTA Administration Fentanyl 25 mcg 08/09/19 11:00 08/15/19 12:19 Duragesic TD 25 mcg Q2D SANTA Administration Gabapentin 400 mg 08/11/19 21:00 08/16/19 09:32 Neurontin PO 400 mg BID SANTA Administration Hydroxyzine HCl 25 mg 08/08/19 04:27 08/12/19 00:01 Vistaril IM 25 mg Q4H PRN Administration GIVE WITH DEMEROL Levothyroxine Sodium 125 mcg 08/08/19 06:00 08/16/19 05:24 Synthroid PO 125 mcg 0600 SANTA Administration Lisinopril 10 mg 08/07/19 21:00 08/16/19 09:32 Zestril PO 10 mg BID SANTA Administration Meperidine HCl 25 mg 08/07/19 17:23 08/13/19 06:01 Demerol IM 25 mg Q6H PRN Administration .SEVERE PAIN Meperidine HCl 50 mg 08/08/19 04:26 08/13/19 20:23 Demerol IM 50 mg Q4H PRN Administration Severe Pain (7-10) Metoprolol Tartrate 25 mg 08/08/19 09:00 08/16/19 09:32 Lopressor PO 25 mg DAILY SANTA Administration Morphine Sulfate 2 mg 08/07/19 17:30 08/08/19 15:19 Morphine IVP 2 mg Q2H PRN Administration Moderate Pain (4-6) Morphine Sulfate 4 mg 08/08/19 04:27 08/10/19 16:35 Morphine SLOW IVP 4 mg Q4H PRN Administration Severe Pain 7-10 BREAKTHROUGH Pantoprazole Sodium 40 mg 08/07/19 21:00 08/16/19 09:32 Protonix PO 40 mg BID SANTA Administration Quetiapine Fumarate 75 mg 08/07/19 21:00 08/15/19 20:51 Seroquel PO 75 mg HS SANTA Administration Saccharomyces Boulardii 250 mg 08/10/19 09:00 08/16/19 09:32 Florastor PO 250 mg DAILY SANTA Administration Tramadol HCl 50 mg 08/07/19 17:23 08/16/19 14:02 Ultram PO 50 mg Q6H PRN Administration Mild Pain (1-3) - Exam General Appearance: NAD Eye: anicteric sclera ENT: no oropharyngeal lesions Neck: supple Heart: RRR Respiratory: CTAB, no wheezes Gastrointestinal: soft, non-tender Skin: no rashes Musculoskeletal: no muscle wasting Psychiatric: normal affect, normal behavior Hosp A/P (1) DM2 (diabetes mellitus, type 2) Status: Chronic (2) Hematoma Code(s): T14.8XXA - OTHER INJURY OF UNSPECIFIED BODY REGION, INITIAL ENCOUNTER Status: Acute (3) Sepsis Code(s): A41.9 - SEPSIS, UNSPECIFIED ORGANISM Status: Resolved - Plan plan discussed w/ family, continue antibiotics, PT/OT, out of bed/ambulate Continue oral clindamycin, Awaiting SNU bed. s/p hand and pelvic surgery. reasonable control of blood sugars.
[2019-08-16] MEDS: Amitriptyline HCl 100 MG TAB PO SCH (20:16)
[2019-08-17] MEDS: Levothyroxine Sodium 125 MCG TAB PO SCH (05:31)
[2019-08-17] MEDS: Clindamycin 150 MG CAP PO SCH ×2 (05:31→11:54)
[2019-08-17] MEDS: HYDROcodone/Acetaminophen 10/325 mg Tablet PO PRN ×2 (05:33→11:54)
[2019-08-17] MEDS: PROVENTIL INHALER 6.7 G (200 INHALATIONS) INH SCH ×2 (08:00→11:04)
[2019-08-17] MEDS: Metoprolol Tartrate 25 MG TAB PO SCH (08:51)
[2019-08-17] MEDS: Lisinopril 10 MG TAB PO SCH (08:51)
[2019-08-17] MEDS: Bupropion 150 MG XL TAB PO SCH (08:51)
[2019-08-17] MEDS: Escitalopram Oxalate 20 mg Tablet PO SCH (08:51)
[2019-08-17] MEDS: Saccharomyces boulardii 250 MG CAP PO SCH (08:51)
[2019-08-17] MEDS: Aspirin 81 mg Enteric Coated Tablet PO SCH (08:51)
[2019-08-17] MEDS: Gabapentin 400 MG CAP PO SCH (08:52)
[2019-08-17 11:27] VITALS: BP 120/77; TEMP 97.1
--- NOTE | 2019-08-17 16:58 | PDOC.HOSPP ---
- Subjective Subjective: Seen and examined. Case reviewed in detailed. Patient ambulating with front wheel Walker with platform stabilizer for left arm. Patient still not at baseline functioning status and only able to ambulate 75 feet with supervision and a walker. I discussed this case at length with [id number] physician advisor for [employer] and recommended inpatient PT and OT services. After a extensive conversation inpatient PT OT services and nursing home facility have been approved. - Objective Vital Signs & Weight: Vital Signs (12 hours) Temp Pulse Resp BP BP Pulse Ox 08/17/19 11:26 97.1 F L 84 14 120/77 91 L 08/17/19 11:04 86 16 08/17/19 09:00 91 L 08/17/19 08:51 134/70 08/17/19 08:14 98.3 F 84 12 135/77 91 L 08/17/19 08:00 89 16 Weight Admit Weight 169 lb 14.4 oz Weight 169 lb 14.4 oz Most Recent Monitor Data Heart Rate from ECG 94 NIBP 127/67 NIBP BP-Mean 87 Respiration from ECG 12 SpO2 98 I&O: 08/16/19 08/17/19 08/18/19 06:59 06:59 06:59 Intake Total 2250 1280 Output Total 2225 575 Balance 25 705 Result Diagrams: 08/12/19 03:17 08/10/19 11:27 Additional Labs: Accuchecks 08/17/19 08/17/19 08/16/19 11:16 05:28 20:31 POC Glucose 90 111 H 136 H 08/16/19 16:51 POC Glucose 88 Radiology Reviewed by me: Yes (Pelvis Xray) Hospitalist ROS - Review of Systems All other systems reviewed; all pertinent +/- noted in HPI/Subj - Exam General Appearance: NAD, awake alert Eye: PERRL, anicteric sclera ENT: normocephalic atraumatic, moist mucosa Neck: supple, symmetric, no lymphadenopathy Heart: no murmur, no gallops, no rubs Respiratory: CTAB, no wheezes, no rales, no ronchi Gastrointestinal: soft, non-tender, non-distended, normal bowel sounds, no guarding, no rigidity Extremities: no edema Skin: no lesions, no rashes Neurological: cranial nerve grossly intact, no focal deficits Musculoskeletal: generalized weakness Psychiatric: normal affect, A&O x 3 Hosp A/P (1) Wrist disorder Code(s): M25.9 - JOINT DISORDER, UNSPECIFIED Status: Acute (2) Wrist pain Code(s): M25.539 - PAIN IN UNSPECIFIED WRIST Status: Acute (3) Pelvic fracture Code(s): S32.9XXA - FRACTURE OF UNSP PARTS OF LUMBOSACRAL SPINE AND PELVIS, INIT Status: Acute (4) DM2 (diabetes mellitus, type 2) Status: Chronic - Plan Plan: DC planning I had a long conversation with physician liaison for [employer] and after peer-to- peer evaluation the patient has been approved for subacute placement and nursing facility for continuation of PT and OT services continue home medications as able pain control patient will need to complete a full course of oral antibiotics continue inpatient PT and OT services to regain her independence and return to prior level of functioning.
--- NOTE | 2019-08-21 06:31 | PQF ---
JONELLE MAHAJAN DARRYL [id number] [facility] A- [id number] CLINICAL DOCUMENTATION CLARIFICATION FORM: POST DISCHARGE Addendum to original discharge summary date: ____ Late entry note date: __ DATE: 08/21/19 ATTN: Ponce Prado Please exercise your independent, professional judgment in responding to the clarification form. Clinical indicators are provided on the bottom of this form for your review Please check appropriate box(s): [ ] Excisional Debridement: [ ] Excised [ ] Cut away [ ] Other: Depth / layer: (deepest layer of debridement): [ ] Skin[ ] SubQ Tissue [ ] Fascia [ ] Muscle [ ] Tendon [ ] Bone Appearance of wound: (e.g., down to fresh bleeding tissue, etc.)___ Margins: (please specify): / x x Instruments used: [ ] Scissors [ ] Scalpel [ ] Curette [ ] Soft tissue clipper [ ] Other: [ ] Non-excisional Debridement: (Removal by flushing, brushing, chemical, or washing) Depth / layer: (deepest layer of debridement): [ ] Skin[ ] Subcutaneous [ ] Fascia [ ] Muscle [ ] Tendon [ ] Bone [ ] Other procedure diagnosis [ ] Unable to determine For continuity of documentation, please document condition throughout progress notes and discharge summary. Thank You. CLINICAL INDICATORS - SIGNS / SYMPTOMS / LABS Op note p2 08/10 Dr Chan We elevated the skin edges, debrided fat, found no necrosis. Op note p2 08/10 Dr Chan there was no necrosis around the tenson sheath and repair of the extersor indicis proprius and transfer of the extersor indicis prorpius to the externsor pollicis longus were still intact with excellent thumb position RISK FACTORS Op note p1 08/10 Left wrist open wound and index finger open wound, dorsal aspect 14cm TREATMENTS: Op note p1 08/10 Debridement of wound intermediate depth [id number] down to, but not including the joint Op note p1 08/10 Closure of wound, 14 cm in multiple layers (This form is maintained as a part of the permanent medical record) 2014 [employer]. All Rights Reserved Anamaria [email or web address] [not provided] MTDD
== END 2019-08-17 12:55 | DRG 500 ==
LOC: SDC 11:55 → SURG A 20:31 → UNDODISIN 08-07 15:40 → CCU 08-08 02:31 → SURG A 08-09 06:00
PROVIDERS: ADMIT Orthopaedic Surgery Hand Surgery; ATTEND Orthopaedic Surgery Hand Surgery
PROC: 0PHJ04Z Insertion of Internal Fixation Device into Left Radius, Open Approach (ICD-10-PCS; principal; 2019-08-06)
PROC: 0RBP4ZZ Excision of Left Wrist Joint, Percutaneous Endoscopic Approach (ICD-10-PCS; 2019-08-06)
PROC: 0QB30ZZ Excision of Left Pelvic Bone, Open Approach (ICD-10-PCS; 2019-08-06)
PROC: 0RUP07Z Supplement Left Wrist Joint with Autologous Tissue Substitute, Open Approach (ICD-10-PCS; 2019-08-06)
PROC: 3E0234Z Introduction of Serum, Toxoid and Vaccine into Muscle, Percutaneous Approach (ICD-10-PCS; 2019-08-06)
PROC: 30233N1 Transfusion of Nonautologous Red Blood Cells into Peripheral Vein, Percutaneous Approach (ICD-10-PCS; 2019-08-07)
PROC: 0RCP0ZZ Extirpation of Matter from Left Wrist Joint, Open Approach (ICD-10-PCS; 2019-08-08)
PROC: 0PBN0ZZ Excision of Left Carpal, Open Approach (ICD-10-PCS; 2019-08-08)
PROC: 0SC Lower Joints, Extirpation (ICD-10-PCS; 2019-08-08)
PROC: 0W3J0ZZ Control Bleeding in Pelvic Cavity, Open Approach (ICD-10-PCS; 2019-08-08)
PROC: 0JDH0ZZ Extraction of Left Lower Arm Subcutaneous Tissue and Fascia, Open Approach (ICD-10-PCS; 2019-08-10)
PROC: 0QS304Z Reposition Left Pelvic Bone with Internal Fixation Device, Open Approach (ICD-10-PCS; 2019-08-10)
DX: S52.502P Unspecified fracture of the lower end of left radius, subsequent encounter for closed fracture with malunion (principal); A41.9 Sepsis, unspecified organism; S32.302A Unspecified fracture of left ilium, initial encounter for closed fracture; E87.2 Acidosis; M96.840 Postprocedural hematoma of a musculoskeletal structure following a musculoskeletal system procedure; M96.89 Other intraoperative and postprocedural complications and disorders of the musculoskeletal system; S69.82XA Other specified injuries of left wrist, hand and finger(s), initial encounter; E03.9 Hypothyroidism, unspecified; J44.9 Chronic obstructive pulmonary disease, unspecified; I10 Essential (primary) hypertension; E78.5 Hyperlipidemia, unspecified; E11.9 Type 2 diabetes mellitus without complications; D64.9 Anemia, unspecified; S63.392A Traumatic rupture of other ligament of left wrist, initial encounter; M65.842 Other synovitis and tenosynovitis, left hand; M25.832 Other specified joint disorders, left wrist; M94.232 Chondromalacia, left wrist; X58.XXXA Exposure to other specified factors, initial encounter; Y83.8 Other surgical procedures as the cause of abnormal reaction of the patient, or of later complication, without mention of misadventure at the time of the procedure; Z23 Encounter for immunization; Z90.710 Acquired absence of both cervix and uterus; Z87.891 Personal history of nicotine dependence
CPT/HCPCS: 36415; 36416; 36430; 71045; 72190; 74176; 76000; 80048; 80053; 81001; 82306; 83605; 85025; 85379; 85384; 86850; 86900; 86901; 87040; 87070; 87086; 87205; A4306; C1713; J0690; J1200; J1580; J1885; J2001; J2175; J2250; J2270; J2370; J2405; J2540; J2550; J2704; J2795; J3010; J3370; J3410; J3490; P9016; S0020

== ENCOUNTER 2019-10-29 10:57 | Outpatient (CLI) | payer MEDICARE ==
--- NOTE | 2019-10-29 13:02 | RAD ---
2 VIEWS CHEST: Date: 10/29/2019 COMPARISON: 09/25/18. HISTORY: Dyspnea. FINDINGS: Two views of the chest show normal sized cardiomediastinal silhouette. There is no evidence of consol idation, mass, or pleural effusion. There is scoliotic curvature of the spine. IMPRESSION: No evidence of acute cardiopulmonary disease. POS: CET
== END 2019-10-29 10:58 | disposition home or self-care (01) ==
LOC: RAD 10:57
PROVIDERS: ATTEND Internal Medicine Critical Care Medicine
DX: R06.00 Dyspnea, unspecified (principal)
CPT/HCPCS: 71046

== ENCOUNTER 2019-11-29 11:35 | Inpatient (IN) | payer MEDICARE ==
[2019-11-29] MEDS ORDERED: traMADol HCl 50 MG TAB PO PRN (15:23)
[2019-11-29] MEDS ORDERED: Guaifenesin DM 100-10/5 ML UDCUP PO PRN (15:23)
[2019-11-29] MEDS ORDERED: Acetaminophen 325 MG TAB PO PRN (15:23)
[2019-11-29] MEDS ORDERED: Ondansetron PF 4 MG/2 ML Vial IVP PRN (15:23)
[2019-11-29] MEDS ORDERED: Melatonin 3 MG TAB PO PRN (15:23)
[2019-11-29] MEDS ORDERED: Dextrose 50% Abboject 50 ML SYRINGE SLOW IVP PRN (15:36)
[2019-11-29] MEDS ORDERED: HumaLOG 300 UNITS/3 ML VIAL SC PRN ×2 (15:36)
[2019-11-29] MEDS ORDERED: Dextrose 5% in Water 1,000 ML IV PRN (15:36)
--- NOTE | 2019-11-29 15:59 | HP ---
REASON FOR ADMISSION: Sepsis, colitis. HISTORY OF PRESENTING ILLNESS: The patient was found down in the bathroom by her earlier this morning around 5:00 a.m. He could not lift her up. The patient was lethargic and was not responsive. finally woke his neighbor up and they finally managed to pick her up. He called EMS and the patient was taken to [facility] Emergency Room. She has had initial workup done there and the CAT scan shows findings of left-sided colitis. She was given 2 L of bolus normal saline and the patient was transferred here. The patient and wanted to come here as all of her specialists are here. The patient was confused up until they took her for CAT scan when she started to talk. No complaints of any specific weakness in any of the extremities. On arrival here, the patient has had 2 episodes of loose watery diarrhea. No nausea or vomiting. No history of constipation. She normally ambulates by herself at home. No complaints of palpitation, chest pain , or fever at home. PAST MEDICAL AND SURGICAL HISTORY: Diabetes mellitus type 2, hypertension, dyslipidemia, hypothyroidism, chronic pain syndrome, chronic obstructive pulmonary disease, history of ischemic colitis, thyroid surgery, hysterectomy, tonsillectomy prior colonoscopies done by Dr. Jonathon Benz per patient. CURRENT MEDICATIONS: The patient is on; 1. Synthroid 125 mcg p.o. daily. 2. Bupropion extended release 300 mg p.o. every morning and 150 mg p.o. every evening. 3. Seroquel 75 mg p.o. nightly. 4. Melatonin 10 mg p.o. nightly. 5. Fluoxetine 20 mg p.o. daily. 6. Cardizem CD 240 mg p.o. daily. 7. Lisinopril 10 mg p.o. daily. 8. Amitriptyline 50 mg p.o. daily. 9. Escitalopram 20 mg daily. 10. Toprol-XL 25 mg daily. 11. Omeprazole 20 mg daily. 12. Gabapentin 400 mg p.o. twice daily. 13. Fentanyl transdermal patch 25 mcg q.72 hourly. 14. Lipitor 20 mg p.o. daily. ALLERGIES: NO KNOWN DRUG ALLERGIES. PERSONAL HISTORY: Quit smoking in July of 2018. Does not abuse alcohol or drugs. Lives with her . She ambulates by herself without any assistive devices. She has home oxygen, but rarely uses it. FAMILY HISTORY: Mother at the age of 84. She had known history of coronary artery disease. Father at the age of 83. He has had history of diabetes and hypertension. CODE STATUS: Full. The daughter and at bedside adds that they do not want prolonged CPR of more than 1 hour. REVIEW OF SYSTEMS: CONSTITUTIONAL: Negative for weight loss or gain, ability to conduct usual activities. SKIN: Negative for rash, itching. EYES: Negative for double vision, pain. ENT/MOUTH: Negative for nose bleeding, neck stiffness, pain, tenderness. CARDIOVASCULAR: Negative for palpitations, dyspnea on exertion, orthopnea. RESPIRATORY: Negative for shortness of breath, wheezing, cough, hemoptysis, fever or night sweats. GASTROINTESTINAL: Negative for poor appetite, abdominal pain, heartburn, nausea , vomiting, constipation, or diarrhea. GENITOURINARY: Negative for urgency, frequency, dysuria, nocturia. MUSCULOSKELETAL: Negative for pain, swelling. NEUROLOGIC/PSYCHIATRIC: Negative for anxiety, depression. ALLERGY/IMMUNOLOGIC: Negative for skin rash, bleeding tendency. PHYSICAL EXAMINATION: GENERAL: The patient is a 64-year-old female, who is currently not in any acute distress. VITAL SIGNS: Blood pressure 100/80, pulse rate 100 per minute, respiratory rate 24 per minute, temperature 99 degrees Fahrenheit, and saturating 96% on room air. NECK: Supple. No elevated JVD. HEENT: Eyes; extraocular muscles intact. Pupils are reacting to light. Oral cavity and mucous membranes are dry. No exudates or congestion. CARDIOVASCULAR SYSTEM: S1 and S2 heard. Regular rhythm. RESPIRATORY SYSTEM: Air entry, 1+ bilateral. Scattered rhonchi plus bilateral. ABDOMEN: Soft. Bowel sounds heard. No tenderness, rigidity, or guarding. EXTREMITIES: No peripheral edema or calf tenderness. VASCULAR SYSTEM: Peripheral pulses 1+ bilateral. No ischemic ulcerations or gangrene. CENTRAL NERVOUS SYSTEM: No gross focal deficits noted. The patient is currently awake and oriented x3. PSYCHIATRIC SYSTEM: No hallucinations or delusions. LABORATORY DATA: BUN 20, creatinine 1.86, serum glucose 132, sodium 133, potassium 4.1, serum chloride 99, serum bicarb 22, total bilirubin 0.6, alkaline phosphatase 457, SGOT 280, SGPT is 94. Albumin is 3.5. BNP is 80 mcg/mL. PT/INR 16 and 1.3, PTT 35. UA shows no signs of infection. Lactic acid was 3.9. Troponin I 0.01. Flu nasal swab was negative for both A and B. blood gas done showed a pH of 7.39, pCO2 of 36, and pO2 of 60. White count of 13, H and H 13 and 40, platelet count 300, MCV is 82, RDW 12 with 87% neutrophils. Occult blood was positive for stool. CT of the abdomen and pelvis done showed wall thickening and adjacent inflammatory stranding consistent with a nonspecific colitis involving the transverse colon, splenic flexure, and descending colon. Chest x-ray done showed no acute findings. CLINICAL IMPRESSION AND PLAN: The patient will be admitted to medical floor for sepsis with initial fever of 102 and findings of colitis on the CAT scan. She is starting to have diarrhea now. She has had nearly 2 episodes of it. No recent antibiotic intake. She has received a dose of vancomycin and Zosyn at [facility]. She will be on cefepime and Flagyl here. We will await stool studies including C diff. Blood cultures have been obtained as well. She will be on normal saline at 100 mL per hour. The patient is on multiple psychotropic agents and pain medications and will continue for now to avoid withdrawal. This includes Seroquel, Ultram, fentanyl transdermal patch, melatonin, gabapentin, Lexapro, Wellbutrin, and Elavil. We will also consult her foxing cutting machine operator, Dr. Jonathon Benz for whom Dr. Andre Batista is on-call. Job ID: [id number] MTDD
[2019-11-29] MEDS: Sodium Chloride 0.9% 1,000 ML IV SCH (16:50)
[2019-11-29 20:45] VITALS: BMI 27.3
[2019-11-29] MEDS: Cefepime 1 GM in Sodium Chloride 0.9% 100 ML IVPB SCH (20:49)
[2019-11-29] MEDS: Amitriptyline HCl 100 MG TAB PO SCH (21:08)
[2019-11-29] MEDS: Bupropion 150 MG SR TAB PO SCH (21:08)
[2019-11-29] MEDS: Gabapentin 400 MG CAP PO SCH (21:09)
[2019-11-29] MEDS: Loperamide HCl 2 MG CAP PO PRN (21:39)
[2019-11-29] MEDS: metroNIDAZOLE 500 MG in Premix Bag 1 BAG IVPB SCH (21:42)
[2019-11-30] MEDS: Sodium Chloride 0.9% 1,000 ML IV SCH ×3 (01:30→21:46)
[2019-11-30 05:14] LABS: Hemoglobin 12.1 g/dL (12.0-16.0); Mean Corpuscular HGB CONC 30.6 g/dL (32.0-36.0); Mean Corpuscular Hemoglobin 25.7 pg (27.0-31.0); Mean Corpuscular Volume 83.9 fL (78.0-98.0); Mean Platelet Volume 8.1 fL (7.4-10.4); Platelet Count 212 thou/uL (130-400); RBC Distribution Width 12.2 % (11.5-14.5); Red Blood Cell (RBC) Count 4.73 mill/uL (4.20-5.40); White Blood Cell (WBC) Count 12.2 thou/uL (4.8-10.8)
[2019-11-30 05:15] LABS: Band 33 % (5-11); Lymphocytes 5 % (21-51); MDiff Complete? YES; Metamyelocyte 1 % (0-0); Monocytes 5 % (0-10); Neutrophil 56 % (42-75); Platelet Morphology Comment Appears Adequate
[2019-11-30 05:18] LABS: ALT (SGPT) 44 U/L (8-55); AST (SGOT) 76 U/L (5-34); Albumin 3.2 g/dL (3.4-4.8); Alkaline Phosphatase 258 U/L (40-110); Anion Gap 13 mmol/L (10-20); BUN (Urea Nitrogen) 20 mg/dL (9.8-20.1); Bilirubin, Total 0.5 mg/dL (0.2-1.2); Calc. Creatinine Clearance 68 mL/min (70-130); Calcium 8.5 mg/dL (7.8-10.44); Carbon Dioxide 21 mmol/L (23-31); Chloride 103 mmol/L (98-107); Estimated GFR-MDRD 53; Globulin 2.7 g/dL (2.4-3.5); Glucose 99 mg/dL (80-115); Potassium 3.5 mmol/L (3.5-5.1); Protein, Total 5.9 g/dL (6.0-8.3); Sodium 133 mmol/L (136-145)
[2019-11-30] MEDS: metroNIDAZOLE 500 MG in Premix Bag 1 BAG IVPB SCH ×3 (05:38→20:30)
[2019-11-30] MEDS: Levothyroxine Sodium 125 MCG TAB PO SCH (05:38)
[2019-11-30] MEDS: Loperamide HCl 2 MG CAP PO PRN (05:56)
[2019-11-30] MEDS ORDERED: Famotidine 20 MG TAB PO SCH (09:00)
[2019-11-30] MEDS: Metoprolol Tartrate 25 MG TAB PO SCH (09:39)
[2019-11-30] MEDS: Lisinopril 10 MG TAB PO SCH (09:39)
[2019-11-30] MEDS: Bupropion 150 MG SR TAB PO SCH ×2 (09:39→20:27)
[2019-11-30] MEDS: Escitalopram Oxalate 20 mg Tablet PO SCH (09:39)
[2019-11-30] MEDS: Gabapentin 400 MG CAP PO SCH ×2 (09:40→20:26)
[2019-11-30] MEDS: Enoxaparin Sodium 30 MG/0.3 ML SYRINGE SC SCH (09:40)
[2019-11-30] MEDS: Saccharomyces boulardii 250 MG CAP PO SCH (09:40)
[2019-11-30] MEDS: Cefepime 1 GM in Sodium Chloride 0.9% 100 ML IVPB SCH ×2 (09:41→20:24)
--- NOTE | 2019-11-30 12:09 | PDOC.HOSPP ---
- Subjective Encounter Date: 11/30/19 Encounter Time: 11:00 Subjective: c/o diarrhea, no abd pain or nausea is tolerating full liq diet daughter and at bedside - Objective Vital Signs & Weight: Vital Signs (12 hours) Temp Pulse Resp BP Pulse Ox 11/30/19 08:00 95 11/30/19 07:02 99.0 F 125 H 16 142/65 H 95 11/30/19 06:30 116 H 16 11/30/19 04:00 98.6 F 117 H 16 138/67 99 Weight Weight 175 lb I&O: 11/29/19 11/30/19 12/01/19 06:59 06:59 06:59 Output Total 550 Balance -550 Result Diagrams: 11/30/19 04:40 11/30/19 04:40 Additional Labs: Accuchecks 11/30/19 11/29/19 11:15 19:58 POC Glucose 115 H 103 Hospitalist ROS - Medication Medications: Active Medications Generic Name Dose Route Start Last Admin Trade Name Freq PRN Reason Stop Dose Admin Acetaminophen 650 mg 11/29/19 15:23 11/29/19 18:03 Tylenol PO 650 mg Q4H PRN Administration Headache/Fever/Mild Pain (1-3) Albuterol/Ipratropium 3 ml 11/29/19 19:00 11/30/19 06:30 Duoneb NEB 3 ml [id number] SANTA Administration Amitriptyline HCl 50 mg 11/29/19 21:00 11/29/19 21:08 Elavil PO 50 mg HS SANTA Administration Bupropion HCl 150 mg 11/30/19 09:00 11/30/19 09:39 Wellbutrin Sr PO 150 mg DAILY SANTA Administration Bupropion HCl 300 mg 11/29/19 21:00 11/29/19 21:08 Wellbutrin Sr PO 300 mg QPM S[facility]A Administration Diltiazem HCl 240 mg 11/29/19 21:00 11/29/19 20:50 Cardizem Cd PO 240 mg HS SANTA Administration Enoxaparin Sodium 30 mg 11/30/19 09:00 11/30/19 09:40 Lovenox SC 30 mg 0900 SANTA Administration Escitalopram Oxalate 20 mg 11/30/19 09:00 11/30/19 09:39 Lexapro PO 20 mg DAILY SANTA Administration Fentanyl 25 mcg 11/29/19 15:30 11/29/19 17:57 Duragesic TD 25 mcg Q3D SANTA Administration Gabapentin 400 mg 11/29/19 21:00 11/30/19 09:40 Neurontin PO 400 mg BID SANTA Administration Cefepime HCl 1 gm/ Sodium 100 mls @ 200 mls/hr 11/29/19 21:00 11/30/19 09:41 Chloride IVPB 100 mls Q12HR SANTA Administration Metronidazole 500 mg/ Device 100 mls @ 100 mls/hr 11/29/19 22:00 11/30/19 05: 38 IVPB 100 mls Q8HR SANTA Administration Sodium Chloride 1,000 mls @ 100 mls/hr 11/29/19 15:23 11/30/19 01:30 Normal Saline 0.9% IV 1,000 mls .Q10H SANTA Administration Levothyroxine Sodium 125 mcg 11/30/19 06:00 11/30/19 05:38 Synthroid PO 125 mcg 0600 SANTA Administration Lisinopril 10 mg 11/30/19 09:00 11/30/19 09:39 Zestril PO 10 mg DAILY SANTA Administration Loperamide HCl 2 mg 11/29/19 21:25 11/30/19 05:56 Imodium PO 2 mg PRN PRN Administration Diarrhea/Loose Stools Metoprolol Tartrate 25 mg 11/30/19 09:00 11/30/19 09:39 Lopressor PO 25 mg DAILY SANTA Administration Pantoprazole Sodium 40 mg 11/29/19 21:00 11/30/19 09:40 Protonix PO 40 mg BID SANTA Administration Quetiapine Fumarate 75 mg 11/29/19 21:00 11/29/19 20:50 Seroquel PO 75 mg HS SANTA Administration Saccharomyces Boulardii 250 mg 11/30/19 09:00 11/30/19 09:40 Florastor PO 250 mg DAILY SANTA Administration - Exam General Appearance: awake alert Eye: PERRL, anicteric sclera ENT: no oropharyngeal lesions, moist mucosa Neck: supple, no JVD Heart: RRR, no murmur Respiratory: no wheezes, no rales, rhonchi Gastrointestinal: soft, non-tender, non-distended, normal bowel sounds, no guarding, no rigidity Extremities: no cyanosis, no edema Neurological: cranial nerve grossly intact, no focal deficits Psychiatric: A&O x 3 Hosp A/P (1) Colitis Code(s): K52.9 - NONINFECTIVE GASTROENTERITIS AND COLITIS, UNSPECIFIED Status : Acute (2) HTN (hypertension) Code(s): I10 - ESSENTIAL (PRIMARY) HYPERTENSION Status: Chronic Qualifiers: Hypertension type: essential hypertension Qualified Code(s): I10 - Essential (primary) hypertension (3) COPD (chronic obstructive pulmonary disease) Status: Chronic Qualifiers: COPD type: chronic bronchitis (4) Mood disorder Code(s): F39 - UNSPECIFIED MOOD [AFFECTIVE] DISORDER Status: Chronic (5) Chronic pain syndrome Code(s): G89.4 - CHRONIC PAIN SYNDROME Status: Chronic (6) Hypothyroidism Code(s): E03.9 - HYPOTHYROIDISM, UNSPECIFIED Status: Chronic Qualifiers: Hypothyroidism type: unspecified Qualified Code(s): E03.9 - Hypothyroidism , unspecified (7) DM2 (diabetes mellitus, type 2) Status: Chronic Qualifiers: 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 Is on multiple psychotropic meds including elavil, gabapentin, bupropion bid, lexapro, seroquel and fentanyl tts hemostable PT to ambulate as tolerated dc plan when diarrhea settles down a bit, was constipated before this.
[2019-11-30] MEDS ORDERED: GoLYTELY 4,000 ml Bottle PO SCH (20:15)
[2019-11-30] MEDS: BESIVANCE EA EYE SCH (20:24)
[2019-11-30] MEDS: LOTEPREDNOL EA EYE SCH (20:25)
[2019-11-30] MEDS: PROLENSA EA EYE SCH (20:25)
[2019-11-30] MEDS: Amitriptyline HCl 100 MG TAB PO SCH (20:26)
--- NOTE | 2019-12-01 01:28 | CON ---
DATE OF CONSULTATION: 11/30/2019 REASON FOR CONSULTATION: Diarrhea, abnormal GI imaging showing possible colitis. CONSULTING PROVIDER: Marie Burton MD HISTORY OF PRESENT ILLNESS: The patient is a 64-year-old female with past medical history of diabetes, hypertension, hyperlipidemia, hypothyroidism, chronic pain, COPD, and ischemic colitis, presenting with altered mental status and diarrhea. Per chart review (the patient could not recall these specific events) the patient was found down by her at home at approximately yesterday morning, which prompted him to call EMS. She was subsequently taken to the [facility] Emergency Room, where she was given IV fluids and more conservative resuscitation, responded favorably to these measures. However, she had a CT scan performed there that showed findings concerning for left-sided colitis and was subsequently transferred to [place] for further evaluation. Since the patient was transferred here, she has not had any additional episodes of loss of consciousness. However, she has been having approximately 6 to 10 semi-solid small volume bowel movements over the last 24 hours with [place] 6 to 7 in consistency. She denies any associated hematochezia or melena associated with this increase in diarrhea nor has she had any sudden increase in abdominal pain as well. With her prior history of ischemic colitis, she states that when she presented with this particular diagnosis in the past, she did present with very similar symptoms. Currently, she denies any nausea, vomiting, fevers, chills, melena, hematochezia, hematemesis, odynophagia, or weight loss. REVIEW OF SYSTEMS: A 10-category review of systems was obtained with all responses negative except for the pertinent positives as listed in the HPI. PAST MEDICAL HISTORY: As per HPI. PAST SURGICAL HISTORY: Thyroid surgery, hysterectomy, tonsillectomy, and prior colonoscopy. FAMILY HISTORY: Denies any GI malignancies. SOCIAL HISTORY: Denies any tobacco, alcohol, or illicit drug use but previously smoked tobacco with putting in July 2018. OUTPATIENT MEDICATIONS: Reviewed. ALLERGIES: NO KNOWN DRUG ALLERGIES. PHYSICAL EXAMINATION: VITAL SIGNS: Temperature 98.4, pulse 104, blood pressure 140/73, respiratory rate 16, saturating 92% on room air. GENERAL: The patient was lying in bed, in no acute distress. Alert and oriented x4. HEENT: Normocephalic, atraumatic. NECK: Supple. No JVD or scleral icterus noted. CARDIOVASCULAR: Tachycardic rate, but regular rhythm. No discernible murmurs, gallops, or rubs. RESPIRATORY: Increased resistance to air auscultated in all lung eisenberg, but no discernible wheezes or rales. ABDOMEN: Normoactive bowel sounds. Soft, nondistended, mild tenderness to palpation in the left upper quadrant and midepigastric regions. EXTREMITIES: No cyanosis, clubbing, or edema. LABORATORY DATA: CBC with a white blood cell count of 12.2, hemoglobin 12.1, hematocrit 39.7, platelets 212. Chemistry with a sodium of 133, potassium 3.5, chloride 103, CO2 of 21, BUN 20, creatinine 1.04, glucose 99, AST 76, ALT 44, alkaline phosphatase 258, total bilirubin 0.5. Infectious stool studies have been negative for Campylobacter, E coli, Shigella, Salmonella and Clostridium difficile. IMAGING DATA: Per chart review, the patient had a recent CT scan done at [facility] ER that showed evidence of colonic wall thickening in the transverse splenic flexure and descending colon. Unfortunately, those images are not available for review. ASSESSMENT AND PLAN: The patient is a 64-year-old female with past medical history of diabetes, hypertension, hyperlipidemia, hypothyroidism, chronic pain, chronic obstructive pulmonary disease, and ischemic colitis, presenting with increased diarrhea and imaging findings consistent with ischemic colitis. Recurrent ischemic colitis. The patient is presenting with an episode of acute loss of consciousness and altered mental status in the period after losing consciousness. She was ultimately evaluated in the [facility] ER and responded favorably to IV fluid resuscitation. However, during that portion of her workup, she had a CT scan that showed the presence of increased inflammation within the left side of the colon concerning for possible infectious or ischemic type process. Over the last 24 hours, she has had a significant increase in her frequency of bowel movements having approximately 6 to 10 semi-solid liquid bowel movements over that same time. Infectious stool studies have been negative thus far for an obvious pathogen. At this time based on her imaging findings, onset of diarrhea after the loss of consciousness and possible hypotension associated with this loss of consciousness, ischemic colitis is high on the differential. However, infectious agent could still be at the root of her current pain and diarrhea in addition to diverticular disease/SCAD, Crohn disease, ulcer colitis (less likely) and/or GI neoplasm. RECOMMENDATIONS: 1. We would continue patient on a clear liquid diet today, but place her n.p.o. at midnight in anticipation for colonoscopy tomorrow. 2. We will plan for colonoscopy tomorrow for intraluminal evaluation of the colon and better determination as to causative agent causing imaging abnormalities. 3. We would continue with supportive control with IV fluid administration and maintaining normal electrolytes with the goal of maintaining normotensive pressures. 4. Agree with full infectious workup for positive agent causing hypotension. 5. Could consider cardiology consult for possible arrhythmia contributing to her loss of consciousness. We will continue to follow. Please call with any questions. Job ID: [id number]
[2019-12-01] MEDS: Levothyroxine Sodium 125 MCG TAB PO SCH (05:28)
[2019-12-01] MEDS: metroNIDAZOLE 500 MG in Premix Bag 1 BAG IVPB SCH ×3 (05:28→21:55)
[2019-12-01] MEDS: Metoprolol Tartrate 25 MG TAB PO SCH (05:30)
[2019-12-01 07:58] LABS: #Lymphocytes 0.6 thou/uL (1.20-3.40); #Monocytes 1.1 thou/uL (0.11-0.59); #Neutrophils 9.4 thou/uL (1.40-6.50); %Basophils 0.2 % (0.0-1.0); %Eosinophils 0.1 % (0.0-10.0); %Lymphocytes 5.3 % (21.0-51.0); %Monocytes 10.2 % (0.0-10.0); %Neutrophils 84.3 % (42.0-75.0); Hemoglobin 10.8 g/dL (12.0-16.0); Mean Corpuscular HGB CONC 33.6 g/dL (32.0-36.0); Mean Corpuscular Hemoglobin 28.2 pg (27.0-31.0); Mean Corpuscular Volume 84.1 fL (78.0-98.0); Mean Platelet Volume 8.1 fL (7.4-10.4); Platelet Count 188 thou/uL (130-400); RBC Distribution Width 12.2 % (11.5-14.5); Red Blood Cell (RBC) Count 3.82 mill/uL (4.20-5.40); White Blood Cell (WBC) Count 11.2 thou/uL (4.8-10.8)
[2019-12-01 08:15] LABS: ALT (SGPT) 35 U/L (8-55); AST (SGOT) 51 U/L (5-34); Albumin 3.5 g/dL (3.4-4.8); Alkaline Phosphatase 210 U/L (40-110); Anion Gap 12 mmol/L (10-20); BUN (Urea Nitrogen) 11 mg/dL (9.8-20.1); Bilirubin, Total 0.4 mg/dL (0.2-1.2); Calc. Creatinine Clearance 96 mL/min (70-130); Calcium 7.9 mg/dL (7.8-10.44); Carbon Dioxide 26 mmol/L (23-31); Chloride 100 mmol/L (98-107); Estimated GFR-MDRD 80; Globulin 2.4 g/dL (2.4-3.5); Glucose 87 mg/dL (80-115); Potassium 3.5 mmol/L (3.5-5.1); Protein, Total 5.9 g/dL (6.0-8.3); Sodium 134 mmol/L (136-145)
[2019-12-01] MEDS ORDERED: Midazolam HCl 2 mg/2 ml Vial ONE (09:48)
[2019-12-01] MEDS ORDERED: Iopamidol-370 76% 500 ML 1 ML ONE (10:03)
[2019-12-01] MEDS ORDERED: Promethazine HCl 25 MG/ML VIAL SLOW IVP PRN (10:31)
[2019-12-01] MEDS ORDERED: Ondansetron HCl/PF 4 MG/2 ML Vial IVP PRN (10:31)
[2019-12-01] MEDS ORDERED: Promethazine HCl 25 MG/ML VIAL IM PRN (10:31)
--- NOTE | 2019-12-01 11:11 | OP ---
DATE OF PROCEDURE: 12/01/2019 PROCEDURE: Colonoscopy with biopsy. INDICATION FOR PROCEDURE: Diarrhea, abnormal GI imaging of the GI tract/colon. DESCRIPTION OF PROCEDURE: After the risks and benefits of the procedure were explained to the patient including risks of bleeding, infection, perforation, reactions to anesthesia, aspiration and/or pain, informed consent was obtained. The patient was then taken to the endoscopy suite, where she was placed in the left lateral decubitus position, followed by introduction of deep sedation with propofol via anesthesia support. Once adequate sedation was achieved, a digital rectal examination was performed followed by introduction of the standard colonoscope which was then advanced to approximately 110 cm past the anal verge into the proximal ascending colon. Cecal intubation was not attempted due to the significant amount of inflammation and increased risk of perforation with further progression. The quality of the prep was fair to poor but adequate for the purposes of establishing a diagnosis. The patient tolerated the procedure well with no immediate perioperative complications. Upon conclusion of the procedure, all equipment was removed from the patient and she was transferred to PACU in satisfactory condition. FINDINGS: Digital rectal exam; poor rectal sphincter tone in addition to small external hemorrhoids were seen on external examination. No masses were palpated. COLON FINDINGS: Normal-appearing mucosa was seen in the distal ascending and proximal transverse colon, however at approximately 85 to 90 cm past the anal verge, a strict demarcation between normal and abnormal mucosa was seen with circumferential ulceration and significant darkening of the colonic mucosa to a dusky hue. This extended from 85 cm to approximately 65 cm, where the circumferential ulceration continued to progress distally, but the mucosa was more red/pink. Multiple biopsies were taken from this area for further evaluation. The extent of the circumferential ulceration extended from 85 to 90 cm to 45 cm, then from 45 cm to 35 cm, there was more linear/patchy ulceration seen, all were similar in appearance to what was seen proximally, at approximately 30 cm past the anal verge, mildly increased mucosal erythema was seen within the sigmoid colon, but quickly transitioned to normal-appearing mucosa within the rectum. Small internal hemorrhoids were seen on rectal retroflexion. IMPRESSION: 1. Severe ischemic colitis extending from 90 cm to 35 cm with significant ischemia in the mid transverse colon. 2. Small internal hemorrhoids and medium size external hemorrhoids. 3. Poor rectal sphincter tone. RECOMMENDATIONS: 1. We would place the patient on a lower fiber diet for now given the significant amount of colonic inflammation. 2. We would schedule the patient's loperamide for better symptomatic relief from her diarrhea. 3. We would obtain a CT angiography of the abdominal vasculature for possible intervention on narrowing or stenosis of either the SMA or SANDRITA. 4. Continue supportive care with IV fluid support and maintaining normotensive pressures. 5. We will follow up on the biopsy results with further care possibly indicated if there is an evidence of infection. Given the strong likelihood of ischemic colitis at this time, we will sign off with only the above recommendations. Please call with any additional questions. Job ID: [id number]
[2019-12-01] MEDS ORDERED: Lidocaine 1% PF 5 ML VIAL ONE (11:47)
[2019-12-01] MEDS ORDERED: PROPOFOL 200 MG/20 ML VIAL ONE (11:47)
[2019-12-01] MEDS: LOTEPREDNOL EA EYE SCH ×2 (12:15→20:34)
[2019-12-01] MEDS: PROLENSA EA EYE SCH ×2 (12:15→20:33)
[2019-12-01] MEDS: Enoxaparin Sodium 30 MG/0.3 ML SYRINGE SC SCH (12:15)
[2019-12-01] MEDS: BESIVANCE EA EYE SCH ×2 (12:15→20:34)
[2019-12-01] MEDS: Saccharomyces boulardii 250 MG CAP PO SCH (12:16)
[2019-12-01] MEDS: Escitalopram Oxalate 20 mg Tablet PO SCH (12:16)
[2019-12-01] MEDS: Lisinopril 10 MG TAB PO SCH (12:16)
[2019-12-01] MEDS: Gabapentin 400 MG CAP PO SCH ×2 (12:17→20:32)
[2019-12-01] MEDS: Bupropion 150 MG SR TAB PO SCH ×2 (12:18→20:31)
[2019-12-01] MEDS: Cefepime 1 GM in Sodium Chloride 0.9% 100 ML IVPB SCH ×2 (12:21→20:34)
[2019-12-01] MEDS: Sodium Chloride 0.9% 1,000 ML IV SCH ×2 (12:21→20:31)
--- NOTE | 2019-12-01 15:14 | CT ---
CT OF BRAIN PERFORMED WITHOUT CONTRAST ENHANCEMENT: HISTORY: Syncope with frequent falls. FINDINGS: Ventricular and cisternal system shows fairly age-appropriate change. There are no signs of intracer ebral hemorrhage or extraaxial fluid collections. The mastoid air cells and visualized sinuses are c lear. IMPRESSION: No acute intracranial abnormalities. POS: [facility]
--- NOTE | 2019-12-01 15:36 | CT ---
CT ANGIO OF ABDOMEN AND PELVIS PERFORMED WITH INTRAVENOUS CONTRAST ENHANCEMENT WITH 3D RECONSTRUCTION 12/01/19 COMPARISON: A 08/09/19 examination. There are small bilateral pleural effusions and bibasilar lung changes which appear to be atelectatic more prominent in the right lung base. The liver and spleen as well as pancreas regions appear unremarkable in this angiographic phase exam. Gallbladder has been removed. Right and left adrenal glands and right and left kidneys are normal in appearance. No significant per iaortic or mesenteric adenopathy. Motion which appears to be related to some bowel peristalsis degrad es detail. Angiographic portion of the study yielded a fair examination. The celiac and superior mesenteric sumeet aurea are fairly well opacified. There is no significant stenosis demonstrated. No thrombus or intimal dissection. There is a patent SANDRITA present. There are changes that would suggest a colitis. There is wall thickening which appears most pronounce d in the transverse colon region but also involving the descending colon with some subtle pericolonic fat stranding. There appears to be relative sparing to the sigmoid colon and right colon. No free fl uid. No pneumatosis. The bladder is distended. Postoperative changes with screw placement across a complex left iliac fracture noted. Marked arthrit ic changes of the hips are seen. IMPRESSION: 1. No evidence of any stenosis of the celiac or superior mesenteric arteries or signs for intima l dissection. 2. Bowel peristalsis limits evaluation. 3. There are colitis type changes seen which appear most pronounced in the transverse colon shivani on, but also involving the descending colon. No pneumatosis is noted. This could be on the basis of i schemic, inflammatory or possibly infectious etiology. 4. Small fat containing periumbilical hernia incidentally noted. Other findings as discussed abo ve. POS: [facility]
[2019-12-01] MEDS: Amitriptyline HCl 100 MG TAB PO SCH (20:32)
[2019-12-02] MEDS: Sodium Chloride 0.9% 1,000 ML IV SCH ×2 (05:09→13:45)
[2019-12-02] MEDS: metroNIDAZOLE 500 MG in Premix Bag 1 BAG IVPB SCH (05:09)
[2019-12-02] MEDS: Levothyroxine Sodium 125 MCG TAB PO SCH (05:09)
[2019-12-02] MEDS: Lisinopril 10 MG TAB PO SCH (09:11)
[2019-12-02] MEDS: Saccharomyces boulardii 250 MG CAP PO SCH (09:11)
[2019-12-02] MEDS: PROLENSA EA EYE SCH ×2 (09:12→23:43)
[2019-12-02] MEDS: Enoxaparin Sodium 30 MG/0.3 ML SYRINGE SC SCH (09:12)
[2019-12-02] MEDS: Escitalopram Oxalate 20 mg Tablet PO SCH (09:12)
[2019-12-02] MEDS: Metoprolol Tartrate 25 MG TAB PO SCH (09:12)
[2019-12-02] MEDS: LOTEPREDNOL EA EYE SCH ×2 (09:12→21:01)
[2019-12-02] MEDS: BESIVANCE EA EYE SCH ×2 (09:13→21:00)
[2019-12-02] MEDS: Gabapentin 400 MG CAP PO SCH ×2 (09:15→20:59)
[2019-12-02] MEDS: Bupropion 150 MG SR TAB PO SCH ×2 (09:15→20:58)
--- NOTE | 2019-12-02 10:46 | PDOC.HOSPP ---
- Subjective Encounter Date: 12/01/19 Encounter Time: 15:00 Subjective: abd pain is better, no nausea had colonoscopy this am no sob, is on nasal canula - Objective Vital Signs & Weight: Vital Signs (12 hours) Pulse Resp BP 12/02/19 09:11 142/68 H 12/02/19 07:54 100 20 Weight Weight 175 lb I&O: 12/01/19 12/02/19 12/03/19 06:59 06:59 06:59 Intake Total 1820 2680 Output Total 1997 1400 Balance -178 1280 Result Diagrams: 12/01/19 07:39 12/01/19 07:39 Additional Labs: Accuchecks 12/02/19 12/02/19 12/01/19 08:18 05:16 20:43 POC Glucose 79 91 80 12/01/19 12/01/19 16:28 11:40 POC Glucose 71 90 Hospitalist ROS - Medication Medications: Active Medications Generic Name Dose Route Start Last Admin Trade Name Freq PRN Reason Stop Dose Admin Acetaminophen 650 mg 11/29/19 15:23 11/29/19 18:03 Tylenol PO 650 mg Q4H PRN Administration Headache/Fever/Mild Pain (1-3) Albuterol/Ipratropium 3 ml 11/29/19 19:00 12/02/19 07:54 Duoneb NEB 3 ml [id number] SANTA Administration Amitriptyline HCl 50 mg 11/29/19 21:00 12/01/19 20:32 Elavil PO 50 mg HS SANTA Administration Bupropion HCl 150 mg 11/30/19 09:00 12/02/19 09:15 Wellbutrin Sr PO 150 mg DAILY SANTA Administration Bupropion HCl 300 mg 11/29/19 21:00 12/01/19 20:31 Wellbutrin Sr PO 300 mg QPM SANTA Administration Diltiazem HCl 240 mg 11/29/19 21:00 12/01/19 20:32 Cardizem Cd PO 240 mg HS SANTA Administration Enoxaparin Sodium 30 mg 11/30/19 09:00 12/02/19 09:12 Lovenox SC 30 mg 0900 SANTA Administration Escitalopram Oxalate 20 mg 11/30/19 09:00 12/02/19 09:12 Lexapro PO 20 mg DAILY SANTA Administration Fentanyl 25 mcg 11/29/19 15:30 11/29/19 17:57 Duragesic TD 25 mcg Q3D SANTA Administration Gabapentin 400 mg 11/29/19 21:00 12/02/19 09:15 Neurontin PO 400 mg BID SANTA Administration Sodium Chloride 1,000 mls @ 100 mls/hr 11/29/19 15:23 12/02/19 05:09 Normal Saline 0.9% IV 1,000 mls .Q10H SANTA Administration Levothyroxine Sodium 125 mcg 11/30/19 06:00 12/02/19 05:09 Synthroid PO 125 mcg 0600 SANTA Administration Lisinopril 10 mg 11/30/19 09:00 12/02/19 09:11 Zestril PO 10 mg DAILY SANTA Administration Loperamide HCl 2 mg 11/29/19 21:25 11/30/19 05:56 Imodium PO 2 mg PRN PRN Administration Diarrhea/Loose Stools Metoprolol Tartrate 25 mg 11/30/19 09:00 12/02/19 09:12 Lopressor PO 25 mg DAILY SANTA Administration Ondansetron HCl 4 mg 11/29/19 15:23 12/01/19 05:48 Zofran IVP 4 mg Q6H PRN Administration Nausea/Vomiting Pantoprazole Sodium 40 mg 11/29/19 21:00 12/02/19 09:12 Protonix PO 40 mg BID SANTA Administration Prolensa 0 each 11/30/19 21:00 12/02/19 09:12 EA EYE 1 each BID SANTA Administration Inveltys 0 each 11/30/19 21:00 12/02/19 09:12 EA EYE 1 each BID SANTA Administration Besivance 0 each 11/30/19 21:00 12/02/19 09:13 EA EYE 1 each BID SANTA Administration Quetiapine Fumarate 75 mg 11/29/19 21:00 12/01/19 20:32 Seroquel PO 75 mg HS SANTA Administration Saccharomyces Boulardii 250 mg 11/30/19 09:00 12/02/19 09:11 Florastor PO 250 mg DAILY SANTA Administration - Exam General Appearance: awake alert Eye: PERRL, anicteric sclera ENT: no oropharyngeal lesions, moist mucosa Neck: supple, no JVD Heart: RRR, no murmur Respiratory: no wheezes, no rales, rhonchi Gastrointestinal: soft, non-distended, normal bowel sounds, no guarding, no rigidity Extremities: no cyanosis, no edema Neurological: cranial nerve grossly intact, no focal deficits Psychiatric: A&O x 3 Hosp A/P (1) Colitis Code(s): K52.9 - NONINFECTIVE GASTROENTERITIS AND COLITIS, UNSPECIFIED Status : Acute (2) HTN (hypertension) Code(s): I10 - ESSENTIAL (PRIMARY) HYPERTENSION Status: Chronic Qualifiers: Hypertension type: essential hypertension Qualified Code(s): I10 - Essential (primary) hypertension (3) COPD (chronic obstructive pulmonary disease) Status: Chronic Qualifiers: COPD type: chronic bronchitis (4) Mood disorder Code(s): F39 - UNSPECIFIED MOOD [AFFECTIVE] DISORDER Status: Chronic (5) Chronic pain syndrome Code(s): G89.4 - CHRONIC PAIN SYNDROME Status: Chronic (6) Hypothyroidism Code(s): E03.9 - HYPOTHYROIDISM, UNSPECIFIED Status: Chronic Qualifiers: Hypothyroidism type: unspecified Qualified Code(s): E03.9 - Hypothyroidism , unspecified (7) DM2 (diabetes mellitus, type 2) Status: Chronic Qualifiers: 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 Is on multiple psychotropic meds including elavil, gabapentin, bupropion bid, lexapro, seroquel and fentanyl tts hemostable PT to ambulate as tolerated dc plan when diarrhea settles down a bit, was constipated before this.
--- NOTE | 2019-12-02 10:50 | PDOC.HOSPP ---
- Subjective Encounter Date: 12/02/19 Encounter Time: 10:30 Subjective: no abd pain or nausea, is tolerating oral solid diet no sob wants to go home - Objective Vital Signs & Weight: Vital Signs (12 hours) Pulse Resp BP 12/02/19 09:11 142/68 H 12/02/19 07:54 100 20 Weight Weight 175 lb I&O: 12/01/19 12/02/19 12/03/19 06:59 06:59 06:59 Intake Total 1820 2680 Output Total 1997 1400 Balance -178 1280 Result Diagrams: 12/01/19 07:39 12/01/19 07:39 Additional Labs: Accuchecks 12/02/19 12/02/19 12/01/19 08:18 05:16 20:43 POC Glucose 79 91 80 12/01/19 12/01/19 16:28 11:40 POC Glucose 71 90 Hospitalist ROS - Medication Medications: Active Medications Generic Name Dose Route Start Last Admin Trade Name Freq PRN Reason Stop Dose Admin Acetaminophen 650 mg 11/29/19 15:23 11/29/19 18:03 Tylenol PO 650 mg Q4H PRN Administration Headache/Fever/Mild Pain (1-3) Albuterol/Ipratropium 3 ml 11/29/19 19:00 12/02/19 07:54 Duoneb NEB 3 ml [id number] SANTA Administration Amitriptyline HCl 50 mg 11/29/19 21:00 12/01/19 20:32 Elavil PO 50 mg HS SANTA Administration Bupropion HCl 150 mg 11/30/19 09:00 12/02/19 09:15 Wellbutrin Sr PO 150 mg DAILY SANTA Administration Bupropion HCl 300 mg 11/29/19 21:00 12/01/19 20:31 Wellbutrin Sr PO 300 mg QPM SANTA Administration Diltiazem HCl 240 mg 11/29/19 21:00 12/01/19 20:32 Cardizem Cd PO 240 mg HS SANTA Administration Enoxaparin Sodium 30 mg 11/30/19 09:00 12/02/19 09:12 Lovenox SC 30 mg 0900 SANTA Administration Escitalopram Oxalate 20 mg 11/30/19 09:00 12/02/19 09:12 Lexapro PO 20 mg DAILY SANTA Administration Fentanyl 25 mcg 11/29/19 15:30 11/29/19 17:57 Duragesic TD 25 mcg Q3D SANTA Administration Gabapentin 400 mg 11/29/19 21:00 12/02/19 09:15 Neurontin PO 400 mg BID SANTA Administration Sodium Chloride 1,000 mls @ 100 mls/hr 11/29/19 15:23 12/02/19 05:09 Normal Saline 0.9% IV 1,000 mls .Q10H SANTA Administration Levothyroxine Sodium 125 mcg 11/30/19 06:00 12/02/19 05:09 Synthroid PO 125 mcg 0600 SANTA Administration Lisinopril 10 mg 11/30/19 09:00 12/02/19 09:11 Zestril PO 10 mg DAILY SANTA Administration Loperamide HCl 2 mg 11/29/19 21:25 11/30/19 05:56 Imodium PO 2 mg PRN PRN Administration Diarrhea/Loose Stools Metoprolol Tartrate 25 mg 11/30/19 09:00 12/02/19 09:12 Lopressor PO 25 mg DAILY SANTA Administration Ondansetron HCl 4 mg 11/29/19 15:23 12/01/19 05:48 Zofran IVP 4 mg Q6H PRN Administration Nausea/Vomiting Pantoprazole Sodium 40 mg 11/29/19 21:00 12/02/19 09:12 Protonix PO 40 mg BID SANTA Administration Prolensa 0 each 11/30/19 21:00 12/02/19 09:12 EA EYE 1 each BID SANTA Administration Inveltys 0 each 11/30/19 21:00 12/02/19 09:12 EA EYE 1 each BID SANTA Administration Besivance 0 each 11/30/19 21:00 12/02/19 09:13 EA EYE 1 each BID SANTA Administration Quetiapine Fumarate 75 mg 11/29/19 21:00 12/01/19 20:32 Seroquel PO 75 mg HS SANTA Administration Saccharomyces Boulardii 250 mg 11/30/19 09:00 12/02/19 09:11 Florastor PO 250 mg DAILY SANTA Administration - Exam General Appearance: awake alert Eye: PERRL, anicteric sclera ENT: no oropharyngeal lesions, moist mucosa Neck: supple, no JVD Heart: RRR, no murmur Respiratory: no wheezes, no rales, rhonchi Gastrointestinal: soft, non-tender, non-distended, normal bowel sounds, no guarding, no rigidity Extremities: no cyanosis, no edema Neurological: cranial nerve grossly intact, no focal deficits Psychiatric: normal affect, A&O x 3 Hosp A/P (1) Colitis Code(s): K52.9 - NONINFECTIVE GASTROENTERITIS AND COLITIS, UNSPECIFIED Status : Acute (2) HTN (hypertension) Code(s): I10 - ESSENTIAL (PRIMARY) HYPERTENSION Status: Chronic Qualifiers: Hypertension type: essential hypertension Qualified Code(s): I10 - Essential (primary) hypertension (3) COPD (chronic obstructive pulmonary disease) Status: Chronic Qualifiers: COPD type: chronic bronchitis (4) Mood disorder Code(s): F39 - UNSPECIFIED MOOD [AFFECTIVE] DISORDER Status: Chronic (5) Chronic pain syndrome Code(s): G89.4 - CHRONIC PAIN SYNDROME Status: Chronic (6) Hypothyroidism Code(s): E03.9 - HYPOTHYROIDISM, UNSPECIFIED Status: Chronic Qualifiers: Hypothyroidism type: unspecified Qualified Code(s): E03.9 - Hypothyroidism , unspecified (7) DM2 (diabetes mellitus, type 2) Status: Chronic Qualifiers: Diabetes mellitus residential insulin use: without terminal make up operator use - Plan stool studies are -ve so far, blood cs are -ve gentle iv hydration, colonoscopy shows signs of ischemic colitis, CTA abd did not reveal any significant stenosis in celiac axis, sma or dmitri. continue lopressor, cardizem CD, nebs, lisinopril, synthroid, protonix. Is on multiple psychotropic meds including elavil, gabapentin, bupropion bid, lexapro, seroquel and fentanyl tts hemostable PT to ambulate as tolerated, has ambulated around 150ft with rw. spo2 drops to <84% on room air, will need home oxygen for underlying copd. Was previously using oxygen at bedtime but does not have it anymore at home. CM for help with setting up home Oxygen
[2019-12-02] MEDS ORDERED: FENTANYL 25 MCG/HR TD SCH (18:00)
[2019-12-02] MEDS: Amitriptyline HCl 100 MG TAB PO SCH (20:57)
[2019-12-03] MEDS: Sodium Chloride 0.9% 1,000 ML IV SCH (02:05)
[2019-12-03] MEDS: Levothyroxine Sodium 125 MCG TAB PO SCH (05:52)
[2019-12-03 08:19] VITALS: BP 139/71; TEMP 98.6
[2019-12-03] MEDS: Bupropion 150 MG SR TAB PO SCH (09:12)
[2019-12-03] MEDS: Saccharomyces boulardii 250 MG CAP PO SCH (09:12)
[2019-12-03] MEDS: Metoprolol Tartrate 25 MG TAB PO SCH (09:13)
[2019-12-03] MEDS: Escitalopram Oxalate 20 mg Tablet PO SCH (09:13)
[2019-12-03] MEDS: Lisinopril 10 MG TAB PO SCH (09:13)
[2019-12-03] MEDS: Gabapentin 400 MG CAP PO SCH (09:13)
[2019-12-03] MEDS: Enoxaparin Sodium 30 MG/0.3 ML SYRINGE SC SCH (09:14)
[2019-12-03] MEDS: LOTEPREDNOL EA EYE SCH (09:15)
[2019-12-03] MEDS: PROLENSA EA EYE SCH (09:16)
[2019-12-03] MEDS: BESIVANCE EA EYE SCH (09:16)
--- NOTE | 2019-12-04 14:51 | DIS ---
DATE OF ADMISSION: 11/29/2019 DATE OF DISCHARGE: 12/03/2019 DISCHARGE DISPOSITION: Home. FOLLOWUP: 1. Follow up with primary care physician, Dr. Fernandez, in 1 week. 2. Follow up with GI, Dr. Batista. 3. The patient was advised to follow up on the biopsy report. DISCHARGE MEDICATIONS: Flagyl 250 mg 3 times daily for next 4 days. All other home medications were left unchanged. Exact home medications are not clear. She was advised to bring all of her medications at the next PCP's appointment in less than 1 week. 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 Batista. The patient was seen and examined on the day of discharge. Denies any new complaints. No nausea or vomiting. Abdominal pain has improved. INPATIENT PROCEDURES: On December 01, 2019, the patient underwent colonoscopy with biopsy that showed severe ischemic colitis extending from 90 cm to 35 cm with significant ischemia in the mid transverse colon. There were also small internal hemorrhoids and medium-sized external hemorrhoids. CTA of the abdomen and pelvis was negative for any stenosis of the celiac or superior mesenteric artery. Echocardiogram showed left ventricular ejection fraction of 60% to 65% with mild concentric LVH, mild mitral regurgitation, mild tricuspid regurgitation. CT scan of the brain was negative. BRIEF HOSPITAL COURSE: The patient is a 64-year-old white female with ischemic colitis in the past, presented to the emergency room with altered mentation. She was found down in the bathroom by her . Please refer to the history and physical for further details. The patient was admitted to the hospital with a diagnosis of colitis. Her initial labs showed WBC of 12.2 with 33% bandemia. Her lactic acid was 1.7 with sodium of 137. Stool workup was essentially negative. Blood cultures were negative. CT scan of the abdomen was consistent with colitis as discussed above. CTA of the abdomen was negative for stenosis of celiac or SMA. She underwent colonoscopy as discussed above by Dr. Batista. She has been cleared by consultants for discharge. FINAL DIAGNOSES: 1. Severe sepsis due to ischemic colitis, present on admission. 2. Toxic-metabolic encephalopathy secondary to #1. 3. Dehydration. 4. Hypothyroidism. 5. Diabetes mellitus, type 2. 6. Chronic pain syndrome. 7. Chronic obstructive pulmonary disease. 8. Hypertension. 9. Small internal hemorrhoids with medium-sized external hemorrhoids. 10. Hyponatremia, present on admission. TIME SPENT: Total time coordinating the discharge of this patient was 33 minutes. Job ID: [id number]
== END 2019-12-03 13:43 | disposition home or self-care (01) | DRG 871 ==
LOC: ERS 11:35 → OBSVTOIN 17:09 → ONC 17:09
PROVIDERS: ADMIT Internal Medicine; ATTEND Internal Medicine
PROC: 0DBL8ZX Excision of Transverse Colon, Via Natural or Artificial Opening Endoscopic, Diagnostic (ICD-10-PCS; principal; 2019-12-01)
DX: A41.9 Sepsis, unspecified organism (principal); G92 Toxic encephalopathy; K55.9 Vascular disorder of intestine, unspecified; E87.1 Hypo-osmolality and hyponatremia; R65.20 Severe sepsis without septic shock; E86.0 Dehydration; E03.9 Hypothyroidism, unspecified; E11.9 Type 2 diabetes mellitus without complications; G89.4 Chronic pain syndrome; J44.9 Chronic obstructive pulmonary disease, unspecified; I10 Essential (primary) hypertension; K64.8 Other hemorrhoids; K64.4 Residual hemorrhoidal skin tags; F39 Unspecified mood [affective] disorder; Z79.899 Other long term (current) drug therapy; Z79.890 Hormone replacement therapy; Z90.710 Acquired absence of both cervix and uterus
CPT/HCPCS: 36415; 36416; 70450; 74174; 80053; 83605; 83880; 85025; 87040; 87045; 87046; 87324; 87427; 87449; 88305; 93306; 94640; 96360; 96361; J0692; J1650; J2001; J2250; J2405; J2704; J3490; J7620; Q9967

== ENCOUNTER 2020-06-25 14:30 | Outpatient (CLI) | payer MEDICARE ==
--- NOTE | 2020-06-25 15:16 | RAD ---
RIGHT KNEE THREE VIEWS: 06/25/20 HISTORY: Chronic low back pain and right knee pain. There is some bone demineralization. Minimal osteoarthrosis and degenerative change. No acute fractur e or dislocation. IMPRESSION: Bone demineralization with some osteoarthrosis without fracture or dislocation. POS: RRE
[2020-06-25 16:06] LABS: #Eosinphils 0.2 thou/uL (0.0-0.7); #Lymphocytes 2.1 thou/uL (1.20-3.40); #Neutrophils 4.8 thou/uL (1.40-6.50); %Basophils 0.6 % (0.0-1.0); %Eosinophils 2.5 % (0.0-10.0); %Lymphocytes 25.4 % (21.0-51.0); %Monocytes 12.2 % (0.0-10.0); %Neutrophils 59.4 % (42.0-75.0); Hemoglobin 12.6 g/dL (12.0-16.0); Mean Corpuscular HGB CONC 32.7 g/dL (32.0-36.0); Mean Corpuscular Hemoglobin 27.9 pg (27.0-31.0); Mean Corpuscular Volume 85.5 fL (78.0-98.0); Platelet Count 310 thou/uL (130-400); RBC Distribution Width 12.9 % (11.5-14.5); Red Blood Cell (RBC) Count 4.51 mill/uL (4.20-5.40); White Blood Cell (WBC) Count 8.1 thou/uL (4.8-10.8)
[2020-06-25 16:14] LABS: Hemoglobin A1c 5.6 % (4.0-6.0)
[2020-06-25 16:25] LABS: ALT (SGPT) Less than 7 U/L (8-55); AST (SGOT) 14 U/L (5-34); Albumin 4.5 g/dL (3.4-4.8); Alkaline Phosphatase 162 U/L (40-110); Anion Gap 14 mmol/L (10-20); BUN (Urea Nitrogen) 11 mg/dL (9.8-20.1); Bilirubin, Total 0.2 mg/dL (0.2-1.2); Calc. Creatinine Clearance 0 mL/min (70-130); Calcium 9.7 mg/dL (7.8-10.44); Carbon Dioxide 33 mmol/L (23-31); Chloride 98 mmol/L (98-107); Estimated GFR-MDRD 53; Glucose 107 mg/dL (80-115); Potassium 5.1 mmol/L (3.5-5.1); Protein, Total 7.5 g/dL (6.0-8.3); Sodium 140 mmol/L (136-145)
[2020-06-25 16:27] LABS: Creatinine, Urine 127.84 mg/dL (47-110); Microalbumin/Creat Ratio 54.8 mg/g (Less than 30)
[2020-06-25 16:50] LABS: Free T4 (Free Thyroxine) 1.26 ng/dL (0.70-1.48); Thyroid Stimulating Hormone 0.3292 uIU/mL (0.35-4.94)
== END 2020-06-25 14:31 | disposition home or self-care (01) ==
LOC: SCSRAD 14:30
PROVIDERS: ATTEND Family Medicine
DX: M25.561 Pain in right knee (principal); E11.59 Type 2 diabetes mellitus with other circulatory complications; M17.11 Unilateral primary osteoarthritis, right knee; M81.0 Age-related osteoporosis without current pathological fracture
CPT/HCPCS: 36415; 80053; 82043; 83036; 84439; 84443; 85025

== ENCOUNTER 2021-06-01 22:34 | Emergency (ER) | payer MEDICARE ==
[2021-06-01 23:29] LABS: #Eosinphils 0.2 thou/uL (0.0-0.7); #Monocytes 0.8 thou/uL (0.11-0.59); #Neutrophils 6.7 thou/uL (1.40-6.50); %Basophils 0.4 % (0.0-1.0); %Eosinophils 2.5 % (0.0-10.0); %Monocytes 8.6 % (0.0-10.0); %Neutrophils 68.5 % (42.0-75.0); Hemoglobin 12.3 g/dL (12.0-16.0); Mean Corpuscular HGB CONC 32.3 g/dL (32.0-36.0); Mean Corpuscular Hemoglobin 27.7 pg (27.0-31.0); Mean Corpuscular Volume 85.8 fL (78.0-98.0); Mean Platelet Volume 7.2 fL (7.4-10.4); Platelet Count 340 thou/uL (130-400); Red Blood Cell (RBC) Count 4.44 mill/uL (4.20-5.40); White Blood Cell (WBC) Count 9.8 thou/uL (4.8-10.8)
[2021-06-01 23:52] LABS: ALT (SGPT) Less than 7 U/L (8-55); AST (SGOT) 14 U/L (5-34); Alkaline Phosphatase 158 U/L (40-110); Anion Gap 13 mmol/L (10-20); BUN (Urea Nitrogen) 8 mg/dL (9.8-20.1); Bilirubin, Total 0.2 mg/dL (0.2-1.2); Calc. Creatinine Clearance 0 mL/min (70-130); Calcium 9.1 mg/dL (7.8-10.44); Carbon Dioxide 27 mmol/L (23-31); Chloride 99 mmol/L (98-107); Globulin 3.2 g/dL (2.4-3.5); Glucose 114 mg/dL (80-115); Potassium 4.4 mmol/L (3.5-5.1); Protein, Total 7.2 g/dL (5.8-8.1); Sodium 135 mmol/L (136-145)
== END 2021-06-02 02:37 | disposition home or self-care (01) ==
LOC: ERS 22:34
DX: M54.12 Radiculopathy, cervical region (principal); R07.89 Other chest pain; E78.5 Hyperlipidemia, unspecified; J44.9 Chronic obstructive pulmonary disease, unspecified; I10 Essential (primary) hypertension; Z87.891 Personal history of nicotine dependence
CPT/HCPCS: 36415; 71045; 80053; 84484; 85025; 93005

== ENCOUNTER 2023-09-06 10:40 | Outpatient (CLI) | payer MEDICARE | END 2023-09-06 10:41 | disposition home or self-care (01) | LOC: RAD 10:40 | PROVIDERS: ATTEND Internal Medicine Critical Care Medicine | DX: R06.00 Dyspnea, unspecified (principal); J44.9 Chronic obstructive pulmonary disease, unspecified; M19.019 Primary osteoarthritis, unspecified shoulder; J98.4 Other disorders of lung | CPT/HCPCS: 71046 ==

== ENCOUNTER 2024-04-24 09:32 | Outpatient (CLI) | payer MEDICARE | END 2024-04-24 09:33 | disposition home or self-care (01) | LOC: RAD 09:32 | PROVIDERS: ATTEND Internal Medicine Critical Care Medicine | DX: R06.00 Dyspnea, unspecified (principal) | CPT/HCPCS: 71046 ==